=== PATIENT | female | born 1985 | race Caucasian/White ===

== ENCOUNTER → 2017-09-04 10:40 | Outpatient (CLI) | payer MEDICARE, MEDICAID, SELFPAY ==
[2017-09-05 09:02] LABS: Vitamin D,25 Hydroxy 51.8 ng/mL (19.95-100.01)
== END ==
PROVIDERS: Family Provider Family Medicine; PCP Family Medicine; Visit Provider Family Medicine
DX: E55.9 Vitamin D deficiency, unspecified (principal)
CPT/HCPCS: 36415; 82306

== ENCOUNTER → 2018-10-13 12:22 | Outpatient (CLI) | payer MEDICARE, MEDICAID, SELFPAY ==
[2018-10-13 17:14] LABS: Vitamin D,25 Hydroxy 47.1 ng/mL (29.95-100.01)
[2018-10-13 17:50] LABS: Anion Gap 6 (5-15); BUN 18 mg/dL (7-18); Calcium,Total 8.1 mg/dL (8.5-10.1); Chloride 115 mmol/L (98-107); EST Glomerular Filtration Rate 121 mL/min (>60); Est Glom Filt Rate - Afr Amer 147 mL/min (>60); Glucose 88 mg/dL (74-106); Sodium Level 144 mmol/L (136-145)
== END ==
PROVIDERS: Family Provider Family Medicine; PCP Family Medicine; Referring Provider Family Medicine; Visit Provider Family Medicine
DX: M81.0 Age-related osteoporosis without current pathological fracture (principal)
CPT/HCPCS: 36415; 80048; 82306

== ENCOUNTER → 2018-10-15 16:37 | Outpatient (CLI) | payer MEDICARE, MEDICAID, SELFPAY ==
[2018-10-15 16:39] LABS: Bacteria 0 SEEN /hpf (None Seen); Mucous, Urine 0 SEEN /hpf (<or=2+); Red Blood Cells-Urine 0 SEEN /hpf (0-5); White Blood Cells 0 SEEN /hpf (0-5)
[2018-10-15 17:56] LABS: Color, Urine Yellow (Yellow); Glucose, Dipstick Normal (Normal); Ketone-Dipstick Negative (Negative); Leukocyte Esterase-Dipstick 25 /ul (Negative); Nitrite-Dipstick Negative (Negative); Occult Blood-Urine 10 /ul (Negative); Protein-Dipstick 15 mg/dl (Negative); Specific Gravity, Urine 1.015 (1.002-1.030); Urine Bilirubin Dipstick Negative (Negative); Urine Clarity Sl. Cloudy (Clear); Urine Urobilinogen 1 mg/dl (Normal)
[2018-10-15 18:06] LABS: Squamous Epithelial Cells - UA 0-5 SEEN /hpf (5-10); Triple Phosphate Crystals Ur 3+ /hpf (<or=1+)
== END ==
PROVIDERS: Family Provider Family Medicine; PCP Family Medicine; Referring Provider Family Medicine; Visit Provider Family Medicine
DX: R35.0 Frequency of micturition (principal)
CPT/HCPCS: 36415; 81001; 82330; 87086; 87088; 87186

== ENCOUNTER → 2019-06-23 16:24 | Outpatient (CLI) | payer MEDICARE, MEDICAID, SELFPAY ==
[2019-06-23 17:39] LABS: Absolute Lymphocyte Count 4.74 X10^3/uL (0.83-4.51); Absolute Neutrophil Count 2.3 X10^3/uL (2.0-7.7); Basophil# 0.04 X10^3/uL; Basophil% 0.5 % (0-1); Eosinophil# 0.19 X10^3/uL; Eosinophils% 2.3 % (0-5); Hematocrit 43.9 % (37-47); Hemoglobin 13.7 g/dL (12.0-15.0); Lymphocyte # 4.74 X10^3/ul (4.0); Lymphocyte % 57.5 % (19-41); Mean Corp Hgb Conc 31.2 g/dL (32-36); Mean Corpuscular Hgb 34.3 pg (27.0-32.0); Mean Platelet Vol. 11.6 fl (6.2-12.0); Monocyte# 0.94 X10^3/uL; Monocyte% 11.4 % (0-10); NRBC Flagged by Analyzer 0 % (0-5); Neutrophil % 27.8 % (47-70); Platelet Count 237 K/mm3 (150-450); RBC Distribution Width CV 13.9 % (11.6-14.6); RBC Distribution Width SD 57.2 fl (35.1-43.9); Red Blood Count 3.99 M/mm3 (4.2-5.4); White Blood Count 8.3 K/mm3 (4.4-11.0)
[2019-06-23 18:12] LABS: Carbamazepine (Tegretol) 6.5 ug/mL (4.0-12.0); Valproic Acid (Depakene) Level 131 ug/mL (50-100)
[2019-06-23 18:35] LABS: ALB/GLOB Ratio 0.8 RATIO (0.9-2.4); AST(SGOT) 23 U/L (15-37); Alanine Aminotransfer ALT/SGPT 15 U/L (13-56); Albumin, Serum 3.2 g/dL (3.2-5.0); Alkaline Phosphatase 74 U/L (45-117); Anion Gap 9 (5-15); BUN 18 mg/dL (7-18); BUN/Creat Ratio 32.3 RATIO (10-20); Calcium,Total 8.8 mg/dL (8.5-10.1); Chloride 113 mmol/L (98-107); Creatinine, Serum 0.56 mg/dL (0.55-1.02); EST Glomerular Filtration Rate 132 mL/min (>60); Est Glom Filt Rate - Afr Amer 159 mL/min (>60); Globulin 3.8 g/dL (2.2-4.2); Glucose 74 mg/dL (74-106); Iron 121 ug/dL (50-170); Potassium 4.4 mmol/L (3.5-5.1); Sodium Level 143 mmol/L (136-145); Thyroid Stim Hormone (TSH) 1.76 uIU/mL (0.358-3.74)
== END ==
PROVIDERS: Family Provider Family Medicine; PCP Family Medicine; Referring Provider Family Medicine; Visit Provider Family Medicine
DX: R53.83 Other fatigue (principal); G40.909 Epilepsy, unspecified, not intractable, without status epilepticus
CPT/HCPCS: 36415; 80053; 80156; 80164; 83540; 84443; 85025

== ENCOUNTER → 2019-07-07 08:28 | Outpatient (CLI) | payer MEDICARE, MEDICAID, SELFPAY ==
--- NOTE | 2019-07-07 08:35 | BD_ITS ---
STUDY: DUAL ENERGY X-RAY ABSORPTIOMETRY / DXA REASON FOR EXAM: Female, 34 years old. Family history of osteoporosis. TECHNIQUE: Bone Mineral Density (BMD) measurements of both forearms were obtained. COMPARISON: Comparison is made with prior study dated January 02, 2017. FINDINGS: Right Forearm: g/cm2 (0.566) / T-score (-3.6) / Z-score (-3.6) Left Forearm: g/cm2 (0.643) / T-score (-2.8) / Z-score (-2.8) BD/Dexa Bone Density/Append Skel IMPRESSION: The patient is considered osteoporotic as outlined below according to World Dl Organization (WHO) criteria with a high fracture risk. There has been worsening of bone density since the previous examination. Reference Information: The T-score is the number of standard deviations above or below the standard which is normal for young adults at their peak bone mineral density. The World Health Organization (WHO) interprets the T-scores as follows: Above -1 Normal bone density Between -1 and -2.5 Osteopenia Equal to / or below -2.5 Osteoporosis As a practical clinical guideline, osteopenia may be graded as follows: Mild -1 through -1.5 Moderate -1.6 through -2.0 Severe -2.1 through -2.4 The Z-score is the number of standard deviations above or below age-matched controls. A Z-score of less than -1.5 would be considered abnormal. References: 1. NIH Osteoporosis and Related Bone Diseases http://www.osteo.org 2. International Society for Clinical Densitometry http://www.iscd.org 3. National Osteoporosis Foundation http://www.nof.org Electronically Signed: Kaz Zeng, at 15:31 EST , Service support ,
== END ==
PROVIDERS: Family Provider Family Medicine; PCP Family Medicine; Referring Provider Family Medicine; Visit Provider Family Medicine
DX: M81.0 Age-related osteoporosis without current pathological fracture (principal)
CPT/HCPCS: 77080; 77081

== ENCOUNTER → 2019-07-16 11:06 | Outpatient (CLI) | payer MEDICARE, MEDICAID, SELFPAY ==
[2019-07-16 18:05] LABS: Valproic Acid (Depakene) Level 62 ug/mL (50-100)
== END ==
PROVIDERS: Family Provider Family Medicine; PCP Family Medicine; Visit Provider Family Medicine
DX: R53.83 Other fatigue (principal)
CPT/HCPCS: 36415; 80164

== ENCOUNTER → 2020-02-15 09:31 | Outpatient (CLI) | payer MEDICARE, MEDICAID, SELFPAY ==
[2020-02-15 12:34] LABS: ALB/GLOB Ratio 0.9 RATIO (0.9-2.4); AST(SGOT) 27 U/L (15-37); Alanine Aminotransfer ALT/SGPT 15 U/L (13-56); Albumin, Serum 3.1 g/dL (3.2-5.0); Alkaline Phosphatase 67 U/L (45-117); Anion Gap 6 (5-15); BUN 20 mg/dL (7-18); Calcium,Total 8.3 mg/dL (8.5-10.1); Chloride 114 mmol/L (98-107); Creatinine, Serum 0.56 mg/dL (0.55-1.02); EST Glomerular Filtration Rate 132 mL/min (>60); Est Glom Filt Rate - Afr Amer 159 mL/min (>60); Globulin 3.4 g/dL (2.2-4.2); Glucose 87 mg/dL (74-106); Potassium 4.5 mmol/L (3.5-5.1); Protein, Total 6.5 g/dL (6.4-8.2); Sodium Level 144 mmol/L (136-145)
[2020-02-15 12:43] LABS: Absolute Lymphocyte Count 2.81 X10^3/uL (0.83-4.51); Absolute Neutrophil Count 2.4 X10^3/uL (2.0-7.7); Basophil# 0.04 X10^3/uL; Basophil% 0.6 % (0-1); Eosinophil# 0.15 X10^3/uL; Eosinophils% 2.4 % (0-5); Hematocrit 42.3 % (37-47); Lymphocyte # 2.81 X10^3/ul (4.0); Lymphocyte % 45.3 % (19-41); Mean Corp Hgb Conc 30.7 g/dL (32-36); Mean Corpuscular Hgb 35.1 pg (27.0-32.0); Mean Corpuscular Volume 114.3 fL (81-99); Monocyte# 0.76 X10^3/uL; Monocyte% 12.3 % (0-10); Neutrophil # 2.38 X10^3/uL (2.7-7.7); Neutrophil % 38.4 % (47-70); POSITIVE COUNT YES; Platelet Count 139 K/mm3 (150-450); RBC Distribution Width CV 14.6 % (11.6-14.6); RBC Distribution Width SD 61.5 fl (35.1-43.9); White Blood Count 6.2 K/mm3 (4.4-11.0)
[2020-02-15 13:18] LABS: Differential Indicated SCAN CRITERIA MET
[2020-02-15 13:20] LABS: Platelet Morphology LARGE
== END ==
PROVIDERS: PCP Family Medicine; Referring Provider Family Medicine
DX: F84.2 Rett's syndrome (principal); R56.9 Unspecified convulsions
CPT/HCPCS: 36415; 80053; 85025

== ENCOUNTER → 2020-03-07 11:09 | Outpatient (CLI) | payer MEDICARE, MEDICAID, SELFPAY ==
[2020-03-07 15:38] LABS: Carbamazepine (Tegretol) 5.8 ug/mL (4.0-12.0); Valproic Acid (Depakene) Level 108 ug/mL (50-100)
[2020-03-13 21:28] LABS: Topiramate 9.9 ug/mL (2.0-25.0)
== END ==
PROVIDERS: PCP Family Medicine; Referring Provider Family Medicine; Visit Provider Family Medicine
DX: R56.9 Unspecified convulsions (principal)
CPT/HCPCS: 36415; 80156; 80164; 80201

== ENCOUNTER → 2020-08-01 09:53 | Outpatient (CLI) | payer MEDICARE, MEDICAID, SELFPAY ==
[2020-08-01 12:19] LABS: Hematocrit 39.8 % (37-47); Hemoglobin 12.6 g/dL (12.0-15.0); Mean Corp Hgb Conc 31.7 g/dL (32-36); Mean Corpuscular Hgb 34.9 pg (27.0-32.0); Mean Corpuscular Volume 110.2 fL (81-99); Mean Platelet Vol. 12.1 fl (6.2-12.0); Platelet Count 221 K/mm3 (150-450); RBC Distribution Width CV 14.3 % (11.6-14.6); RBC Distribution Width SD 58.4 fl (35.1-43.9); Red Blood Count 3.61 M/mm3 (4.2-5.4); White Blood Count 6.6 K/mm3 (4.4-11.0)
[2020-08-01 12:53] LABS: Follicle Stimulating Hormone 5.1 mIU/mL; Luteinizing Hormone 7.9 mIU/mL; Thyroid Stim Hormone (TSH) 1.76 uIU/mL (0.358-3.74)
== END ==
PROVIDERS: PCP Family Medicine; Referring Provider Family Medicine; Visit Provider Family Medicine
DX: N93.8 Other specified abnormal uterine and vaginal bleeding (principal); R53.83 Other fatigue
CPT/HCPCS: 36415; 82670; 83001; 83002; 84443; 85027

== ENCOUNTER → 2021-02-12 15:55 | Outpatient (CLI) | payer MEDICARE, MEDICAID, SELFPAY ==
[2021-02-12 18:04] LABS: Vitamin D,25 Hydroxy 37.1 ng/mL
[2021-02-12 18:19] LABS: Anion Gap 6 (5-15); BUN 20 mg/dL (7-18); BUN/Creat Ratio 32.1 RATIO (10-20); Calcium,Total 8.4 mg/dL (8.5-10.1); Chloride 114 mmol/L (98-107); Cholesterol 227 mg/dL (200); Creatinine, Serum 0.62 mg/dL (0.55-1.02); EST Glomerular Filtration Rate 115 mL/min (>60); Est Glom Filt Rate - Afr Amer 139 mL/min (>60); Glucose 103 mg/dL (74-106); High Density Lipoprotein 93 mg/dL; Magnesium 3.1 mg/dL (1.6-2.6); Potassium 4.2 mmol/L (3.5-5.1); Sodium Level 143 mmol/L (136-145); Triglycerides 134 mg/dL; Very Low Density Lipoprotein 27 mg/dL (5-40)
[2021-02-12 18:59] LABS: PTHIN 95.7 pg/mL (18.4-80.1)
[2021-02-12 19:11] LABS: Carbamazepine (Tegretol) 6.4 ug/mL (4.0-12.0); Valproic Acid (Depakene) Level 122 ug/mL (50-100)
[2021-02-15 16:44] LABS: Topiramate 8.4 ug/mL (2.0-25.0)
== END ==
PROVIDERS: PCP Family Medicine
DX: Z13.220 Encounter for screening for lipoid disorders (principal); M81.0 Age-related osteoporosis without current pathological fracture; R56.9 Unspecified convulsions
CPT/HCPCS: 80048; 80061; 80156; 80164; 80201; 82306; 82330; 83735; 83970

== ENCOUNTER → 2021-06-21 10:00 | Outpatient (CLI) | payer MEDICARE, MEDICAID, SELFPAY ==
[2021-06-21 13:05] LABS: Carbamazepine (Tegretol) 7.1 ug/mL (4.0-12.0); Valproic Acid (Depakene) Level 93 ug/mL (50-100)
[2021-06-21 13:12] LABS: Vitamin D,25 Hydroxy 35.4 ng/mL
[2021-06-21 13:13] LABS: PTHIN 69.3 pg/mL (18.4-80.1)
[2021-06-21 13:44] LABS: Anion Gap 9 (5-15); BUN 22 mg/dL (7-18); BUN/Creat Ratio 34.2 RATIO (10-20); Calcium,Total 9.1 mg/dL (8.5-10.1); Chloride 110 mmol/L (98-107); Creatinine, Serum 0.64 mg/dL (0.55-1.02); EST Glomerular Filtration Rate 110 mL/min (>60); Est Glom Filt Rate - Afr Amer 134 mL/min (>60); Follicle Stimulating Hormone 6.4 mIU/mL; Glucose 91 mg/dL (74-106); Luteinizing Hormone 7.3 mIU/mL; Potassium 3.8 mmol/L (3.5-5.1); Sodium Level 143 mmol/L (136-145)
== END ==
PROVIDERS: PCP Family Medicine; Referring Provider Family Medicine; Visit Provider Family Medicine
DX: M81.0 Age-related osteoporosis without current pathological fracture (principal); N91.2 Amenorrhea, unspecified; G40.909 Epilepsy, unspecified, not intractable, without status epilepticus
CPT/HCPCS: 36415; 80048; 80156; 80164; 82306; 82330; 83001; 83002; 83735; 83970

== ENCOUNTER 2021-11-01 09:23 | Outpatient (CLI) | payer MEDICARE, MEDICAID, SELFPAY ==
[2021-11-01 10:01] LABS: Absolute Lymphocyte Count 3.05 X10^3/uL (0.83-4.51); Absolute Neutrophil Count 1.9 X10^3/uL (2.0-7.7); Basophil# 0.02 X10^3/uL; Basophil% 0.3 % (0-1); Eosinophil# 0.26 X10^3/uL; Eosinophils% 4.2 % (0-5); Hematocrit 39.3 % (37-47); Hemoglobin 12.5 g/dL (12.0-15.0); Lymphocyte # 3.05 X10^3/ul (0.83-4.51); Lymphocyte % 49.1 % (19-41); Mean Corp Hgb Conc 31.8 g/dL (32-36); Mean Corpuscular Hgb 34.2 pg (27.0-32.0); Mean Corpuscular Volume 107.4 fL (81-99); Mean Platelet Vol. 10.8 fl (6.2-12.0); Monocyte# 0.92 X10^3/uL; Monocyte% 14.8 % (0-10); NRBC Flagged by Analyzer 0.8 % (0-5); Neutrophil # 1.93 X10^3/uL (2.7-7.7); Neutrophil % 31.1 % (47-70); Platelet Count 302 K/mm3 (150-450); RBC Distribution Width CV 15.6 % (11.6-14.6); RBC Distribution Width SD 62.4 fl (35.1-43.9); Red Blood Count 3.66 M/mm3 (4.2-5.4); White Blood Count 6.2 K/mm3 (4.4-11.0)
[2021-11-01 10:32] LABS: Carbamazepine (Tegretol) 6.7 ug/mL (4.0-12.0); Valproic Acid (Depakene) Level 69 ug/mL (50-100)
[2021-11-01 10:33] LABS: ALB/GLOB Ratio 0.9 RATIO (0.9-2.4); AST(SGOT) 17 U/L (15-37); Alanine Aminotransfer ALT/SGPT 16 U/L (13-56); Albumin, Serum 3.1 g/dL (3.2-5.0); Alkaline Phosphatase 63 U/L (45-117); Anion Gap 2 (5-15); BUN 25 mg/dL (7-18); BUN/Creat Ratio 42.8 RATIO (10-20); Calcium,Total 8.8 mg/dL (8.5-10.1); Chloride 111 mmol/L (98-107); Creatinine, Serum 0.58 mg/dL (0.55-1.02); EST Glomerular Filtration Rate 123 mL/min (>60); Est Glom Filt Rate - Afr Amer 149 mL/min (>60); Globulin 3.5 g/dL (2.2-4.2); Glucose 83 mg/dL (74-106); Potassium 4.2 mmol/L (3.5-5.1); Protein, Total 6.6 g/dL (6.4-8.2); Sodium Level 142 mmol/L (136-145)
== END 2021-11-01 23:59 | disposition home or self-care (01) ==
PROVIDERS: PCP Family Medicine; Referring Provider Family Medicine; Visit Provider Nurse Practitioner Family
DX: R63.0 Anorexia (principal); G40.909 Epilepsy, unspecified, not intractable, without status epilepticus
CPT/HCPCS: 36415; 80053; 80156; 80164; 85025

== ENCOUNTER → 2022-08-19 | Outpatient (CLI) | payer MEDICARE, MEDICAID, SELFPAY ==
[2022-08-19 10:18] LABS: Hematocrit 37.6 % (37-47); Hemoglobin 11.9 g/dL (12.0-15.0); Mean Corp Hgb Conc 31.6 g/dL (32-36); Mean Corpuscular Hgb 33.8 pg (27.0-32.0); Mean Corpuscular Volume 106.8 fL (81-99); Mean Platelet Vol. 11.3 fl (6.2-12.0); Platelet Count 204 K/mm3 (150-450); RBC Distribution Width CV 16.4 % (11.6-14.6); Red Blood Count 3.52 M/mm3 (4.2-5.4); White Blood Count 5.5 K/mm3 (4.4-11.0)
[2022-08-19 11:04] LABS: PTHIN 98.9 pg/mL (18.4-80.1)
[2022-08-19 11:06] LABS: Vitamin B12 638 pg/mL (211-911)
[2022-08-19 11:15] LABS: Valproic Acid (Depakene) Level 73 ug/mL (50-100)
[2022-08-19 11:27] LABS: ALB/GLOB Ratio 0.9 RATIO (0.9-2.4); AST(SGOT) 20 U/L (15-37); Alanine Aminotransfer ALT/SGPT 12 U/L (13-56); Alkaline Phosphatase 77 U/L (45-117); Anion Gap 7 (5-15); BUN 20 mg/dL (7-18); BUN/Creat Ratio 38.4 RATIO (10-20); Calcium,Total 8.3 mg/dL (8.5-10.1); Chloride 112 mmol/L (98-107); Cholesterol 268 mg/dL (200); Creatinine, Serum 0.52 mg/dL (0.55-1.02); EST Glomerular Filtration Rate 140 mL/min (>60); Est Glom Filt Rate - Afr Amer 169 mL/min (>60); Globulin 3.5 g/dL (2.2-4.2); Glucose 96 mg/dL (74-106); High Density Lipoprotein 111 mg/dL; Magnesium 2.7 mg/dL (1.6-2.6); Potassium 4.3 mmol/L (3.5-5.1); Protein, Total 6.5 g/dL (6.4-8.2); Sodium Level 144 mmol/L (136-145); Thyroid Stim Hormone (TSH) 1.63 uIU/mL (0.358-3.74); Triglycerides 104 mg/dL; Very Low Density Lipoprotein 21 mg/dL (5-40)
== END | disposition home or self-care (01) ==
PROVIDERS: PCP Family Medicine; Visit Provider Family Medicine
DX: Z13.220 Encounter for screening for lipoid disorders (principal); G40.909 Epilepsy, unspecified, not intractable, without status epilepticus; R71.8 Other abnormality of red blood cells; M81.0 Age-related osteoporosis without current pathological fracture; N92.6 Irregular menstruation, unspecified; E78.00 Pure hypercholesterolemia, unspecified
CPT/HCPCS: 36415; 80053; 80061; 80164; 82306; 82330; 82607; 83735; 83970; 84443; 85027

== ENCOUNTER → 2022-09-04 | Outpatient (CLI) | payer MEDICARE, MEDICAID, SELFPAY ==
--- NOTE | 2022-09-04 15:30 | RAD_ITS ---
INDICATION: swallowed tooth during removal with dentist EXAMINATION/TECHNIQUE: X-RAY - XR Chest 2 Views COMPARISON: None. FINDINGS: LINES/DEVICES: None. LUNGS: No consolidation, edema or effusion. No pneumothorax. MEDIASTINUM AND CARDIOVASCULAR STRUCTURES: Cardiac silhouette not enlarged. Central airways and mediastinal contour are unremarkable. BONES AND SOFT TISSUES: Mild vertebral scoliosis. RAD/Chest PA and Lateral IMPRESSION: No radiographic evidence of acute cardiopulmonary disease. Electronically Signed: Obi Mcintosh DO at 16:59 EST Reading Location ID and State: [facility] / [place] Tel [phone], Service support ,
== END | disposition home or self-care (01) ==
LOC: MTRAD 15:29
PROVIDERS: PCP Family Medicine; Visit Provider Family Medicine
DX: T18.9XXA Foreign body of alimentary tract, part unspecified, initial encounter (principal)
CPT/HCPCS: 71046

== ENCOUNTER → 2023-01-01 | Outpatient (CLI) | payer MEDICARE, MEDICAID, SELFPAY ==
[2023-01-01 10:36] LABS: Absolute Lymphocyte Count 3.12 X10^3/uL (0.83-4.51); Absolute Neutrophil Count 2.1 X10^3/uL (2.0-7.7); Basophil# 0.02 X10^3/uL; Basophil% 0.3 % (0-1); Eosinophil# 0.18 X10^3/uL; Eosinophils% 2.8 % (0-5); Hematocrit 38.9 % (37-47); Hemoglobin 11.9 g/dL (12.0-15.0); Lymphocyte # 3.12 X10^3/ul (0.83-4.51); Lymphocyte % 49.1 % (19-41); Mean Corp Hgb Conc 30.6 g/dL (32-36); Mean Corpuscular Hgb 32.9 pg (27.0-32.0); Mean Corpuscular Volume 107.5 fL (81-99); Mean Platelet Vol. 11.1 fl (6.2-12.0); Monocyte# 0.92 X10^3/uL; Monocyte% 14.5 % (0-10); NRBC Flagged by Analyzer 1.3 % (0-5); Neutrophil # 2.08 X10^3/uL (2.7-7.7); Neutrophil % 32.7 % (47-70); POSITIVE MORPHOLOGY YES; Platelet Count 266 K/mm3 (150-450); RBC Distribution Width CV 17.2 % (11.6-14.6); RBC Distribution Width SD 67.5 fl (35.1-43.9); Red Blood Count 3.62 M/mm3 (4.2-5.4); White Blood Count 6.4 K/mm3 (4.4-11.0)
[2023-01-01 10:41] LABS: Differential Indicated SCAN CRITERIA MET
[2023-01-01 11:01] LABS: Anisocytosis 2+; Differential Comment SCANNED; Polychromasia RARE
[2023-01-01 11:02] LABS: Macrocytosis 1+
[2023-01-01 11:03] LABS: PTHIN 42.2 pg/mL (18.4-80.1); Vitamin D,25 Hydroxy 56.5 ng/mL
[2023-01-01 11:09] LABS: Anion Gap 4 (5-15); BUN 21 mg/dL (7-18); BUN/Creat Ratio 33.7 RATIO (10-20); Calcium,Total 9.2 mg/dL (8.5-10.1); Chloride 115 mmol/L (98-107); Creatinine, Serum 0.62 mg/dL (0.55-1.02); EST Glomerular Filtration Rate 113 mL/min (>60); Est Glom Filt Rate - Afr Amer 137 mL/min (>60); Glucose 99 mg/dL (74-106); Magnesium 2.8 mg/dL (1.6-2.6); Potassium 4.6 mmol/L (3.5-5.1); Prealbumin 28.7 mg/dL (20.0-40.0); Sodium Level 146 mmol/L (136-145)
== END | disposition home or self-care (01) ==
LOC: MFPLAB 09:29
PROVIDERS: PCP Family Medicine; Visit Provider Family Medicine
DX: M81.0 Age-related osteoporosis without current pathological fracture (principal); M79.89 Other specified soft tissue disorders
CPT/HCPCS: 36415; 80048; 82306; 83735; 83970; 84134; 85025

== ENCOUNTER 2023-03-15 06:38 | Emergency (ER) | payer MEDICARE, MEDICAID, SELFPAY ==
[2023-03-15 06:42] VITALS: BP 136/101; PULSE 90; RESP 16; TEMP 36.1; O2SAT 95; BMI 19.7
[2023-03-15 06:46] VITALS: BP 125/107; PULSE 90; RESP 16; TEMP 36.1; O2SAT 97
--- NOTE | 2023-03-15 07:36 | EX.ED.DYSGE1 ---
HPI History of Present Illness Chief Complaint: General Illness Detail of Chief Complaint: Diarrhea Onset/Context/Timing Onset: Days (6) Context: Gradual Onset Timing: Continuous Quality: Watery Location: Stools Worsened by: Nothing Relieved by: Nothing Narrative Narrative: Patient presents with diarrhea and decreased appetite that has been getting worse over the past 6 days. 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 Parents state that the patient has had decreased appetite over the past week. Parents state that the patient was recently on steroids for COVID-19. Family states that patient had a telehealth visit with Dr. Sauceda this week and was diagnosed with oral thrush. Patient was started on nystatin at that time. Family states that the patient has been having intermittent fevers and was started on Zithromax for possible pharyngitis. Family states that the diarrhea has been loose and watery. Family denies any melena or hematochezia. Family is concerned that the patient's mental status has gone down over the past 6 days. [facility] Medical History (Updated 03/15/23 @ 10:[address] Mio Martinez, DO) GERD (gastroesophageal reflux disease) History of osteoporosis Rett syndrome Scoliosis Seizure disorder Home Medications baclofen 10 mg tablet 7.5 mg PO DAILY 03/15/23 [History Last Taken Unknown] carbamazepine 100 mg chewable tablet 200 mg PO Q12H 03/15/23 [History Last Taken Unknown] cholecalciferol (vitamin D3) 10 mcg (400 unit) capsule (Vitamin D3) 10 mcg PO DAILY 03/15/23 [History Last Taken Unknown] clonazepam 0.5 mg disintegrating tablet 0.5 mg translingual PRN SEIZURE 03/15/23 [History Last Taken Unknown] dexlansoprazole 30 mg capsule,biphase delayed release 30 mg PO DAILY 03/15/23 [History Last Taken Unknown] divalproex 250 mg tablet,delayed release 1,000 mg PO Q12H 03/15/23 [History Last Taken Unknown] docusate sodium 100 mg capsule (Col-Rite) 200 mg PO BID 03/15/23 [History Last Taken Unknown] glycerin (laxative) 2.8 gram/2.7 mL rectal solution (Pedia-Lax) 2.8 g IA QODAY 03/15/23 [History Last Taken Unknown] polyethylene glycol 3350 17 gram/dose oral powder (ClearLax) 8.5 g PO DAILY 03/15/23 [History Last Taken Unknown] topiramate 100 mg tablet 150 mg PO Q12H 03/15/23 [History Last Taken Unknown] Allergy/AdvReac Type Severity Reaction Status Date / Time diazepam [From Valium] Allergy Other Verified 03/15/23 06:41 morphine Allergy Other Verified 03/15/23 06:41 Penicillins Allergy Rash Verified 03/15/23 06:41 Surgical History (Updated 03/15/23 @ 07:[address] Mio Martinez DO) History of ankle surgery Social History Smoking Status: Never smoker ROS ROS ED Review of Systems ROS Unobtainable: due to mental condition Constitutional Constitutional ED: Reports fever(s); Denies chills ENT ENT ED: Reports sore throat; Denies rhinorrhea Respiratory/Chest Respiratory/Chest: Denies cough or dyspnea Gastrointestinal Gastrointestinal: Reports diarrhea; Denies nausea or vomiting Integumentary Denies abscess or rash Neurologic Neurologic: Reports weakness Allergic/Immunologic Allergic/Immunologic ED: Denies mouth swelling EXAM Physical Exam Const Vital Signs: 03/15/23 06:42 03/15/23 06:46 03/15/23 06:49 Temperature 96.9 F L 96.9 F L Temperature Source Temporal Temporal Pulse Rate 90 90 Respiratory Rate 16 16 Respiratory Effort Normal Blood Pressure 136/101 H 125/107 H Blood Pressure Mean 112 113 Pulse Ox 95 97 Oxygen Delivery Method 03/15/23 09:50 Temperature Temperature Source Pulse Rate 78 Respiratory Rate 17 Respiratory Effort Blood Pressure Blood Pressure Mean Pulse Ox Oxygen Delivery Method Room Air Positive well nourished and well developed General Appearance ED: well developed and NAD HEENT Reports moist mucous membranes HEENT Narrative: There is a mild white exudate on the tongue. Negative for trauma Neck supple and no JVD Resp normal respiratory effort and clear to auscultation bilaterally Cardio regular rate and regular rhythm GI non-tender and non-distended Palpation: soft Neuro Sensorium / Orientation: alert Motor Exam: general weakness MDM MDM MDM Narrative Medical decision making narrative: Differential diagnosis includes dehydration, electrolyte abnormality, acute kidney injury, colitis, and gastroenteritis. CBC will be obtained to assess for leukocytosis and anemia. Basic metabolic profile will be obtained to assess for electrolyte abnormality and renal function. Urinalysis will be obtained to assess for urinary tract infection. Valproic acid level will be obtained to assess for subtherapeutic level. Tegretol level will be obtained to assess for subtherapeutic level. CT scan of the abdomen pelvis will be obtained to assess for colitis. Lab Data Attestation: I reviewed the patient's lab results. Lab results narrative: CBC shows a slight leukocytosis of 11.7. There are 3.7% immature granulocytes. There are 17.2% monocytes. The remaining differential is within normal limits. Basic metabolic profile was reviewed. Sodium slightly low at 130 and chloride was slightly low at 97. Potassium was low at 2.5. BUN was 22 and creatinine was 0.42. Urinalysis was reviewed. There is no evidence of urinary tract infection or hematuria. Patient's valproic acid level was reviewed and was therapeutic at 86. Carbamazepine level was reviewed and was slightly supratherapeutic at 15.1. Labs: Laboratory Results - last 24 hr 03/15/23 03/15/23 08:15 08:50 WBC 11.7 H RBC 3.78 L Hgb 12.2 Hct 38.7 MCV 102.4 H MCH 32.3 H MCHC 31.5 L RDW Std Deviation 64.5 H RDW Coeff of [place] 17.3 H Plt Count 233 MPV 10.5 Immature Gran % (Auto) 3.700 H Neut % (Auto) 52.4 Lymph % (Auto) 25.9 [place] % (Auto) 17.6 H Eos % (Auto) 0.2 Baso % (Auto) 0.2 Absolute Neuts (auto) 6.1 Absolute Lymphs (auto) 3.03 Nucleated RBC % 8.5 H Differential Comment SCANNED Diff Path Review May foll Sodium 130 L Potassium 2.5 L* Chloride 97 L Carbon Dioxide 24.0 Anion Gap 9 BUN 22 H Creatinine 0.42 L Estim Creat Clear Calc 98.71 Est GFR (MDRD) Af Amer 214 Est GFR (MDRD) Non-Af 177 BUN/Creatinine Ratio 51.9 H Glucose 108 H Calcium 6.8 L Total Bilirubin 0.20 Direct Bilirubin 0.07 AST 26 ALT 12 L Alkaline Phosphatase 116 Total Protein 5.8 L Albumin 1.6 L Globulin 4.2 Urine Color Marilynn Urine Clarity Sl. Cloudy Urine pH 6.0 Ur Specific [place] 1.020 Urine Protein 30 H Urine Glucose (UA) Normal Urine Ketones 50 H Urine Occult Blood 25 H Urine Nitrite Negative Urine Bilirubin 1 H Urine Urobilinogen 4 H Ur Leukocyte Esterase 25 H Urine RBC 0-5 SEEN Urine WBC 0-5 SEEN Ur Squamous Epith Cells 10-25 SEEN Other Crystals Urine Bacteria 0 SEEN Urine Mucus 0 SEEN Valproic Acid 86 Carbamazepine 15.1 H* Radiography Diagnostic Testing: Clinical Impression(s) from Imaging Studies Abdomen/Pelvis CT 03/15/23 07:48 IMPRESSION: Proctocolitis. Ascites. Electronically Signed: Susie Cummins MD at 9:28 EDT , CT scan of the abdomen pelvis was obtained. There is some ascites noted. There is also poctocolitis noted. There is no evidence of obstruction. There is no free air noted. This was interpreted by the radiologist and was also independently reviewed by myself. Additional Tests and Interventions Additional Tests or Interventions: Because of the ascites on the CT scan, hepatic profile was obtained to assess for hepatic function. This was within normal limits. Treatment and Re-Evaluation :: Patient was given IV fluids. Because of the hypokalemia, patient was given oral and IV potassium. Patient was given her normal dose of. Depakote. Patient's Tegretol level was slightly elevated so of the patient's Tegretol was held this morning. Patient is more alert on reevaluation. Parents state that the patient seems to be acting more like her normal self. Parents were advised of the findings. Parents were instructed to administer small amounts of fluids more frequently. Parents were also instructed to use PediaSure as needed. Parents were instructed to continue the Zithromax as previously prescribed. Parents were also instructed to continue the nystatin as prescribed. Parents were instructed to follow-up with the patient's primary care physician in 3 to 5 days. Parents were instructed return if worse in any way. Parents understood and were agreeable with the plan. All questions were answered. Discharge Plan Triage Chief Complaint: General Illness ED Provider: Mio Martinez Dx/Rx/DC Orders Clinical Impression: Dehydration, Hypokalemia, Proctocolitis Instructions: ED Dehydration (Adult), ED Hypokalemia Prescriptions: No Action divalproex 250 mg tablet,delayed release (DR/EC) 1,000 mg PO Q12H Patient Comments: take 4 tablets by mouth twice a day carbamazepine 100 mg tablet,chewable 200 mg PO Q12H Patient Comments: chew and swallow 2 tablets by mouth twice a day topiramate 100 mg tablet 150 mg PO Q12H Patient Comments: take 1 tablet by mouth twice a day dexlansoprazole 30 mg capsule,biphase delayed releas 30 mg PO DAILY Patient Comments: take 1 capsule by mouth once daily baclofen 10 mg tablet 7.5 mg PO DAILY clonazepam 0.5 mg tablet,disintegrating 0.5 mg translingual PRN docusate sodium [Col-Rite] 100 mg capsule 200 mg PO BID cholecalciferol (vitamin D3) [Vitamin D3] 10 mcg (400 unit) capsule 10 mcg PO DAILY polyethylene glycol 3350 [ClearLax] 17 gram/dose powder 8.5 g PO DAILY Pedia-Lax 2.8 gram/2.7 mL solution 2.8 g IA QODAY Primary Care Provider: Curly Sauceda Referrals: Curly Sauceda MD [Primary Care Provider] - 3-5 Days Disposition Disposition: Home, Self Care
--- NOTE | 2023-03-15 07:48 | CT_ITS ---
INDICATION: Abdominal pain EXAMINATION: CT ABDOMEN AND PELVIS WITHOUT CONTRAST - CT Abdomen And Pelvis W/O Contrast Injection TECHNIQUE: Helically acquired images were obtained of the abdomen and pelvis without oral or IV contrast. A radiation dose optimization technique was used for this scan. IV Contrast dosage and agent: None. Oral contrast: None. RADIATION DOSAGE (If Supplied By Facility): CTDIvol = ( 6.04 ) mGy, DLP = ( 283.89 ) mGycm COMPARISON: No relevant prior comparison study available FINDINGS: Motion artifact degrades anatomic detail. LOWER CHEST: There are small bilateral pleural effusions, right greater than left. No cardiomegaly or pericardial effusion. The lack of intravenous contrast limits evaluation of solid visceral organs. LIVER: Homogeneous. No focal mass. GALLBLADDER AND BILIARY TREE: No calcified gallstones. No gallbladder distension or wall edema. No intra- or extrahepatic biliary ductal dilation. PANCREAS: No focal cystic or solid mass. SPLEEN: Normal size without focal cystic or solid mass. ADRENAL GLANDS: No nodules. KIDNEYS AND URETERS: Normal renal size and position. No hydronephrosis. PERITONEUM: There is free fluid within the right upper quadrant and pelvis. BOWEL: The stomach is within normal limits. There is circumferential wall thickening of the colon and rectum. There is nonvisualization of the appendix. LYMPH NODES: No enlarged mesenteric or retroperitoneal lymph nodes. VESSELS: Aorta is non-dilated. URINARY BLADDER: Unremarkable. REPRODUCTIVE ORGANS: No pelvic masses. ABDOMINAL WALL: No discrete abdominal or pelvic wall hernia. BONES: There is a dextroscoliosis of the thoracolumbar spine. CT/Abdomen/Pelvis without Cont IMPRESSION: Proctocolitis. Ascites. Electronically Signed: Susie Cummins MD at 9:28 EDT ,
[2023-03-15] MEDS: 0.9% Normal Saline 1,000 ML 1000 ML IV (07:56)
[2023-03-15 08:26] LABS: Absolute Lymphocyte Count 3.03 X10^3/uL (0.83-4.51); Absolute Neutrophil Count 6.1 X10^3/uL (2.0-7.7); Basophil# 0.02 X10^3/uL; Basophil% 0.2 % (0-1); Eosinophil# 0.02 X10^3/uL; Eosinophils% 0.2 % (0-5); Hematocrit 38.7 % (37-47); Hemoglobin 12.2 g/dL (12.0-15.0); Lymphocyte # 3.03 X10^3/ul (0.83-4.51); Lymphocyte % 25.9 % (19-41); Mean Corp Hgb Conc 31.5 g/dL (32-36); Mean Corpuscular Hgb 32.3 pg (27.0-32.0); Mean Corpuscular Volume 102.4 fL (81-99); Mean Platelet Vol. 10.5 fl (6.2-12.0); Monocyte# 2.06 X10^3/uL; Monocyte% 17.6 % (0-10); NRBC Flagged by Analyzer 8.5 % (0-5); Neutrophil # 6.12 X10^3/uL (2.7-7.7); Neutrophil % 52.4 % (47-70); POSITIVE COUNT YES; POSITIVE DIFFERENTIAL YES; POSITIVE MORPHOLOGY YES; Platelet Count 233 K/mm3 (150-450); RBC Distribution Width CV 17.3 % (11.6-14.6); RBC Distribution Width SD 64.5 fl (35.1-43.9); Red Blood Count 3.78 M/mm3 (4.2-5.4); White Blood Count 11.7 K/mm3 (4.4-11.0)
[2023-03-15 08:38] LABS: Anion Gap 9 (5-15); BUN 22 mg/dL (7-18); BUN/Creat Ratio 51.9 RATIO (10-20); Calcium,Total 6.8 mg/dL (8.5-10.1); Chloride 97 mmol/L (98-107); Creatinine, Serum 0.42 mg/dL (0.55-1.02); EST Glomerular Filtration Rate 177 mL/min (>60); Est Glom Filt Rate - Afr Amer 214 mL/min (>60); Estimated Creatinine Clearance 98.71 ml/min; Glucose 108 mg/dL (74-106); Potassium 2.5 mmol/L (3.5-5.1); Sodium Level 130 mmol/L (136-145)
[2023-03-15 08:43] LABS: Differential Indicated SCAN CRITERIA MET
[2023-03-15 08:51] LABS: Carbamazepine (Tegretol) 15.1 ug/mL (4.0-12.0); Valproic Acid (Depakene) Level 86 ug/mL (50-100)
[2023-03-15 09:00] LABS: Bacteria 0 SEEN /hpf (None Seen); Mucous, Urine 0 SEEN /hpf (<or=2+)
[2023-03-15 09:09] LABS: Color, Urine Amber (Yellow); Glucose, Dipstick Normal (Normal); Ketone-Dipstick 50 mg/dl (Negative); Leukocyte Esterase-Dipstick 25 /ul (Negative); Nitrite-Dipstick Negative (Negative); Occult Blood-Urine 25 /ul (Negative); Protein-Dipstick 30 mg/dl (Negative); Urine Clarity Sl. Cloudy (Clear); Urine Urobilinogen 4 mg/dl (Normal)
[2023-03-15 09:12] LABS: Differential Comment SCANNED
[2023-03-15 09:16] LABS: Urine Bilirubin Dipstick 1 mg/dL (Negative)
[2023-03-15] MEDS: Potassium Chloride Oral Soln 20 MEQ/15 ML UDC 40 MEQ PO (09:20)
[2023-03-15] MEDS: Potassium Chloride 10mEq/100mL 10 MEQ/100 ML IV.SOLN. 100 MEQ IV BOLUS (09:21)
--- NOTE | 2023-03-15 09:31 | ED.RN ---
Per Dr. Martinez, pt. can have home medications except Tegretol.
[2023-03-15 09:50] VITALS: PULSE 78; RESP 17
[2023-03-15 10:03] LABS: AST(SGOT) 26 U/L (15-37); Alanine Aminotransfer ALT/SGPT 12 U/L (13-56); Albumin, Serum 1.6 g/dL (3.2-5.0); Alkaline Phosphatase 116 U/L (45-117); Bilirubin, Direct 0.07 mg/dL (0.00-0.30); Globulin 4.2 g/dL (2.2-4.2); Protein, Total 5.8 g/dL (6.4-8.2)
[2023-03-15 10:29] LABS: Red Blood Cells-Urine 0-5 SEEN /hpf (0-5); Squamous Epithelial Cells - UA 10-25 SEEN /hpf (5-10); White Blood Cells 0-5 SEEN /hpf (0-5)
[2023-03-15] MEDS: Potassium Chloride 10mEq/100mL 10 MEQ/100 ML IV.SOLN. 50 MEQ IV BOLUS (11:26)
[2023-03-15 11:53] VITALS: PULSE 80; RESP 16
[2023-03-15 13:32] VITALS: BP 125/107; PULSE 78; RESP 16; TEMP 36.8; O2SAT 99
[2023-03-18 12:30] LABS: Pathologist Review Reviewed
== END 2023-03-15 13:42 | disposition home or self-care (01) ==
PROVIDERS: Emergency Provider Emergency Medicine; PCP Family Medicine; Visit Provider Emergency Medicine
DX: E86.0 Dehydration (principal); E87.6 Hypokalemia; F84.2 Rett's syndrome; Z86.16 Personal history of COVID-19
CPT/HCPCS: 36415; 74176; 80048; 80076; 80156; 80164; 81001; 85025; 96365; 96366; 99283; J7030; J7040; P9612; A4216

== ENCOUNTER → 2023-03-17 | Outpatient (CLI) | payer MEDICARE, MEDICAID, SELFPAY ==
[2023-03-17 13:04] LABS: Erythrocyte Sedimentation Rate 38 mm/hr (0-30)
[2023-03-17 13:06] LABS: Hematocrit 34.7 % (37-47); Hemoglobin 11.3 g/dL (12.0-15.0); Mean Corp Hgb Conc 32.6 g/dL (32-36); Mean Corpuscular Hgb 32.3 pg (27.0-32.0); Mean Corpuscular Volume 99.1 fL (81-99); Mean Platelet Vol. 11.1 fl (6.2-12.0); POSITIVE COUNT YES; POSITIVE MORPHOLOGY YES; Platelet Count 221 K/mm3 (150-450); RBC Distribution Width CV 18.4 % (11.6-14.6); RBC Distribution Width SD 66.3 fl (35.1-43.9)
[2023-03-17 13:08] LABS: Differential Indicated MANUAL DIFF
[2023-03-17 13:32] LABS: Valproic Acid (Depakene) Level 131 ug/mL (50-100)
[2023-03-17 13:38] LABS: Corrected WBC 11.7 K/mm3 (4.4-11.0); Eosinophil 1 % (0-5); Lymphocyte 42 % (19-41); Metamyelocyte 7 % (0-1); Monocyte 4 % (0-10); Myelocyte 2 % (0-0); Neutrophil-Band 5 % (0-5); Neutrophil-Segmented 39 % (47-70); Nucleated Red Bld Cells,Manual 25 % (0-5); Total Cells Counted 100 (MANUAL DIFF)
[2023-03-17 13:39] LABS: Anisocytosis 1+; Platelet Estimate ADEQUATE (ADEQ); Schistocytes RARE
[2023-03-17 13:40] LABS: Absolute Neutrophil Count 5.1 X10^3/uL (2.0-7.7); Neutrophil # 5.14 X10^3/uL (2.7-7.7)
[2023-03-17 13:53] LABS: ALB/GLOB Ratio 0.4 RATIO (0.9-2.4); AST(SGOT) 39 U/L (15-37); Alanine Aminotransfer ALT/SGPT 20 U/L (13-56); Albumin, Serum 1.4 g/dL (3.2-5.0); Alkaline Phosphatase 189 U/L (45-117); Anion Gap 7 (5-15); BUN 6 mg/dL (7-18); BUN/Creat Ratio 13.5 RATIO (10-20); Calcium,Total 6.9 mg/dL (8.5-10.1); Chloride 105 mmol/L (98-107); Creatinine, Serum 0.45 mg/dL (0.55-1.02); EST Glomerular Filtration Rate 167 mL/min (>60); Est Glom Filt Rate - Afr Amer 202 mL/min (>60); Globulin 3.9 g/dL (2.2-4.2); Glucose 80 mg/dL (74-106); Protein, Total 5.3 g/dL (6.4-8.2); Sodium Level 133 mmol/L (136-145); Thyroid Stim Hormone (TSH) 0.58 uIU/mL (0.358-3.74); Total Bilirubin < 0.10 mg/dL (0.20-1.00)
[2023-03-18 12:39] LABS: Pathologist Review Reviewed
== END | disposition home or self-care (01) ==
LOC: MFPLAB 10:58 → LAB 12:03
PROVIDERS: PCP Family Medicine; Referring Provider Family Medicine; Visit Provider Family Medicine
DX: K92.1 Melena (principal); E87.1 Hypo-osmolality and hyponatremia
CPT/HCPCS: 36415; 80053; 80164; 82274; 84443; 85025; 85652; 86140; 87177; 87209; 87493

== ENCOUNTER → 2023-03-26 | Outpatient (CLI) | payer MEDICARE, MEDICAID, SELFPAY ==
--- NOTE | 2023-03-26 08:17 | BD_ITS ---
STUDY: DUAL ENERGY X-RAY ABSORPTIOMETRY / DXA REASON FOR EXAM: Female, 37 years old. 733.00OsteoporosisBONE DENSITY REASON FOR EXAM TECHNIQUE: Bone Mineral Density (BMD) measurements of lumbar spine and left hip were obtained. COMPARISON: Comparison is made with prior study dated July 07, 2019. FINDINGS: Lumbar Spine (L1-L4): g/cm2 (0.847) / T-score (-1.8) / Z-score (-1.6) Findings are suggestive of osteopenia with a moderate fracture risk. Left Femur Total: g/cm2 (0.474) / T-score (-3.8) / Z-score (-3.7) Left Femoral Neck: g/cm2 (0.379) / T-score (-4.2) / Z-score (-4.0) BD/Dexa Bone Density Study IMPRESSION: The patient is considered osteoporotic as outlined below according to World Dl Organization (WHO) criteria with a high fracture risk. Reference Information: The T-score is the number of standard deviations above or below the standard which is normal for young adults at their peak bone mineral density. The World Health Organization (WHO) interprets the T-scores as follows: Above -1 Normal bone density Between -1 and -2.5 Osteopenia Equal to / or below -2.5 Osteoporosis As a practical clinical guideline, osteopenia may be graded as follows: Mild -1 through -1.5 Moderate -1.6 through -2.0 Severe -2.1 through -2.4 The Z-score is the number of standard deviations above or below age-matched controls. A Z-score of less than -1.5 would be considered abnormal. References: 1. NIH Osteoporosis and Related Bone Diseases www osteo.org 2. International Society for Clinical Densitometry www iscd.org 3. National Osteoporosis Foundation www nof.org Electronically Signed: Kaz Zeng MD at 9:46 EDT ,
== END | disposition home or self-care (01) ==
LOC: OPBD 08:12
PROVIDERS: PCP Family Medicine; Referring Provider Family Medicine; Visit Provider Family Medicine
DX: M81.0 Age-related osteoporosis without current pathological fracture (principal); N95.9 Unspecified menopausal and perimenopausal disorder
CPT/HCPCS: 77080

== ENCOUNTER → 2023-04-07 | Outpatient (CLI) | payer MEDICARE, MEDICAID, SELFPAY ==
[2023-04-07 17:36] LABS: Absolute Lymphocyte Count 2.81 X10^3/uL (0.83-4.51); Absolute Neutrophil Count 0.8 X10^3/uL (2.0-7.7); Basophil# 0.03 X10^3/uL; Basophil% 0.7 % (0-1); Eosinophil# 0.08 X10^3/uL; Eosinophils% 1.8 % (0-5); Hematocrit 32.7 % (37-47); Hemoglobin 9.8 g/dL (12.0-15.0); Lymphocyte # 2.81 X10^3/ul (0.83-4.51); Lymphocyte % 63.3 % (19-41); Mean Corpuscular Hgb 32.7 pg (27.0-32.0); Mean Platelet Vol. 11.3 fl (6.2-12.0); Monocyte# 0.74 X10^3/uL; Monocyte% 16.7 % (0-10); NRBC Flagged by Analyzer 1.1 % (0-5); Neutrophil # 0.76 X10^3/uL (2.7-7.7); POSITIVE DIFFERENTIAL YES; POSITIVE MORPHOLOGY YES; Platelet Count 340 K/mm3 (150-450); RBC Distribution Width CV 20.4 % (11.6-14.6); RBC Distribution Width SD 81.3 fl (35.1-43.9); White Blood Count 4.4 K/mm3 (4.4-11.0)
[2023-04-07 17:40] LABS: Differential Indicated SCAN CRITERIA MET
[2023-04-07 18:06] LABS: Differential Comment SCANNED
[2023-04-07 18:16] LABS: Vitamin B12 682 pg/mL (211-911)
[2023-04-07 18:32] LABS: Anion Gap 5 (5-15); BUN 17 mg/dL (7-18); BUN/Creat Ratio 42.1 RATIO (10-20); Calcium,Total 8.6 mg/dL (8.5-10.1); Chloride 114 mmol/L (98-107); EST Glomerular Filtration Rate 187 mL/min (>60); Est Glom Filt Rate - Afr Amer 226 mL/min (>60); Ferritin 25 ng/mL (8-252); Glucose 86 mg/dL (74-106); Iron 50 ug/dL (50-170); Iron Binding Capacity,Total 349 ug/dL (250-450); Magnesium 2.8 mg/dL (1.6-2.6); Potassium 4.5 mmol/L (3.5-5.1); Prealbumin 25.5 mg/dL (20.0-40.0); Sodium Level 142 mmol/L (136-145)
[2023-04-07 19:32] LABS: Valproic Acid (Depakene) Level 87 ug/mL (50-100)
[2023-04-07 19:37] LABS: ALB/GLOB Ratio 0.8 RATIO (0.9-2.4); AST(SGOT) 17 U/L (15-37); Alanine Aminotransfer ALT/SGPT 14 U/L (13-56); Albumin, Serum 2.5 g/dL (3.2-5.0); Alkaline Phosphatase 69 U/L (45-117); Anion Gap 5 (5-15); BUN 17 mg/dL (7-18); BUN/Creat Ratio 41.5 RATIO (10-20); CRP < 2.90 mg/L (0.0-3.0); Calcium,Total 8.5 mg/dL (8.5-10.1); Chloride 113 mmol/L (98-107); Creatinine, Serum 0.41 mg/dL (0.55-1.02); EST Glomerular Filtration Rate 185 mL/min (>60); Est Glom Filt Rate - Afr Amer 224 mL/min (>60); Globulin 3.2 g/dL (2.2-4.2); Glucose 88 mg/dL (74-106); Potassium 4.5 mmol/L (3.5-5.1); Protein, Total 5.7 g/dL (6.4-8.2); Sodium Level 142 mmol/L (136-145)
== END | disposition home or self-care (01) ==
LOC: MFPLAB 15:50 → MTLAB 16:13
PROVIDERS: PCP Family Medicine; Referring Provider Family Medicine; Visit Provider Family Medicine
DX: D64.9 Anemia, unspecified (principal); G40.909 Epilepsy, unspecified, not intractable, without status epilepticus; K92.1 Melena; M79.89 Other specified soft tissue disorders; R19.7 Diarrhea, unspecified
CPT/HCPCS: 36415; 80048; 80053; 80164; 82607; 82728; 82746; 83540; 83550; 83735; 84134; 85025; 86140

== ENCOUNTER → 2023-05-09 | Outpatient (CLI) | payer MEDICARE, MEDICAID, SELFPAY | END | disposition home or self-care (01) | LOC: MFPLAB 15:42 | PROVIDERS: PCP Family Medicine; Visit Provider Family Medicine | DX: R69 Illness, unspecified (principal) | CPT/HCPCS: 36415; 82728; 83540; 83550 ==

== ENCOUNTER → 2023-05-13 | Outpatient (CLI) | payer MEDICARE, MEDICAID, SELFPAY ==
[2023-05-13 18:03] LABS: Absolute Lymphocyte Count 2.71 X10^3/uL (0.83-4.51); Absolute Neutrophil Count 2.1 X10^3/uL (2.0-7.7); Basophil# 0.02 X10^3/uL; Basophil% 0.3 % (0-1); Eosinophil# 0.17 X10^3/uL; Eosinophils% 2.9 % (0-5); Hematocrit 37.8 % (37-47); Immature Platelet Fraction 10.3 % (1.0-7.9); Lymphocyte # 2.71 X10^3/ul (0.83-4.51); Lymphocyte % 46.2 % (19-41); Mean Corp Hgb Conc 29.1 g/dL (32-36); Mean Corpuscular Hgb 32.5 pg (27.0-32.0); Mean Corpuscular Volume 111.8 fL (81-99); Mean Platelet Vol. 12.3 fl (6.2-12.0); Monocyte# 0.79 X10^3/uL; Monocyte% 13.5 % (0-10); NRBC Flagged by Analyzer 1.4 % (0-5); Neutrophil # 2.13 X10^3/uL (2.7-7.7); Neutrophil % 36.4 % (47-70); POSITIVE COUNT YES; POSITIVE MORPHOLOGY YES; Platelet Count 219 K/mm3 (150-450); RBC Distribution Width CV 19.2 % (11.6-14.6); RET-HE 29.9 pg (30-35); Red Blood Count 3.38 M/mm3 (4.2-5.4); Reticulocyte Count 2.78 % (0.5-1.5); White Blood Count 5.9 K/mm3 (4.4-11.0)
[2023-05-13 18:09] LABS: Differential Indicated SCAN CRITERIA MET
[2023-05-13 18:13] LABS: Ferritin 9 ng/mL (8-252); Iron 72 ug/dL (50-170); Iron Binding Capacity,Total 575 ug/dL (250-450); PERCENT IRON SATURATION 12.5 % (15.0-55.0)
[2023-05-13 18:51] LABS: Platelet Estimate ADEQUATE (ADEQ)
== END | disposition home or self-care (01) ==
LOC: MFPLAB 16:19
PROVIDERS: PCP Family Medicine; Visit Provider Family Medicine
DX: K92.1 Melena (principal)
CPT/HCPCS: 36415; 82728; 83540; 83550; 85025; 85045

== ENCOUNTER → 2023-07-30 | Outpatient (CLI) | payer MEDICARE, MEDICAID, SELFPAY ==
--- NOTE | 2023-07-30 15:30 | SP.MBSS_ITS ---
Modified Barium Swallow Patient Information Study Date: 07/30/23 Study Time: 13:00 Direct Billable Minutes: 122 Total Minutes procedure & reportin Diagnosis: Dysphagia R13.10 Referring Physician: Curly Sauceda Reason for Referral: Objectively assess swallow function, assess risk for aspiration, and determine recommendations for least restrictive diet textures and compensatory strategies to improve safety of swallow. Medical History: PMH: GERD, History of osteoporosis, Rett syndrome, Scoliosis, COVID-19 PNA, Falls (years ago per mother, patient required stitches to her head), and Seizure disorder. The patient's mother was present for the evaluation and provided all history. The patient has a history of dysphagia and had MBSS completed in [place] in 2006. She has for years been consuming soft solids (e.g. noodles, processed/soft meats) / thin liquids. Recently, she has had increased coughing with both food and drink at at least 1 meal per day. She also regurgitates food or drink ~1X/week, especially when consuming OJ or tomato sauce. GERD is managed by medication. Mother provides all feeding assistance. The patient does not drink by a straw. Current Diet Ordered: Soft solids / Thin liquids Dentition: Natural Teeth Mental Status: Impaired (Difficulty following commands - mod-max verbal cues for keeping her head up) Penetration-Aspiration Scale Penetration-Aspiration Scale: OBJECTIVE ASSESSMENT OF SWALLOW FUNCTION (QUANTITATIVE ? PER TRIAL): PENETRATION / ASPIRATION SCALE (RIVERA): 1 = does not enter airway 2 = enters airway/above vocal folds/ejected 3 = enters airway/above vocal folds/not ejected 4 = enters airway/contacts vocal folds/ejected 5 = enters airway/contacts vocal folds/not ejected 6 = enters airway/below vocal folds/ejected 7 = enters airway/below vocal folds/not ejected despite effort 8 = enters airway/below vocal folds/no effort VIDEOFLOROSCOPIC SCALE SCORE (RIVERA): Grade I = aspiration of material that has penetrated into the laryngeal vestibule, intact cough reflex Grade II = aspiration < 10 % of the bolus, intact cough reflex Grade III = aspiration of < 10 % of the bolus, reduced cough reflex or aspiration of > 10 % of the bolus, intact cough reflex Grade IV = aspiration of > 10 % of the bolus, reduced cough reflex Penetration-Aspiration Scale Score Thin Liquid via teaspoon: Result: 1= does not enter airway Thin Liquid via small single sip: cup: Result: 2= enter airway/above vocal folds/ejected Thin Liquid via sequential sips: cup: Result: 2= enter airway/above vocal folds/ejected Pudding via teaspoon: Result: 1= does not enter airway 1/4 Cookie in Barium Pudding: Result: 1= does not enter airway Thin Liquid via sequential sips: cup Trial 2: Result: 2= enter airway/above vocal folds/ejected Oral Phase Labial Seal: Escape beyond mid-chin (Excessive anterior loss at end of the study was due to APPLIED MATHEMATICIAN spilling when providing sequential sips) Tongue Control During Bolus Hold: Posterior escape of greater than half of bolus Bolus Preparation/Mastication: Disorganized chewing/mashing with solid pieces of bolus unchewed Bolus Transport/Lingual Motion: Delayed initiation of tongue motion Oral Residue: Residue collection on oral structures Pharyngeal Phase Initiation of Pharyngeal Swallow: Bolus head in pyriforms Soft Palate Elevation: Escape to nasopharynx Laryngeal Elevation: Comp. Superior move thyroid cart w/comp. apprx arytenoid cart-epig pet Anterior Hyoid Excursion: Partial anterior movement Epiglottic Movement: Complete inversion Laryngeal Vestibule Closure at Height of Swallow: Incomplete; narrow column of air/contrast in laryngeal vestibule (trace laryngeal penetration with full ejection with sips of thin via cup) Pharyngeal Stripping Wave: Present - complete Pharyngoesophageal Segment Opening: Complete distension and complete duration; no obstruction of flow Tongue Base Retraction: Trace column of contrast between tongue base & post. pharyngeal wall Pharyngeal Residue: Trace residue within or on pharyngeal structures Esophageal Phase Esophageal Clearance: Complete clearance Diagnosis/Impression Diagnosis: Moderate oral dysphagia R13.11, Mild pharyngeal dysphagia R13.13 Impression: The oral phase is primarily marked by... -Prolonged, disorganized mastication. -Decreased bolus control with posterior loss of >1/2 of sequential sips of thin liquids to the pyriforms prior to swallow onset. -Mild oral residue most notable with sequential sip of thin liquids. The pharyngeal phase is primarily marked by... -Escape of collection of contrast to the nasopharynx seen with sequential sips of thin. -Delayed swallow onset, most notable with sequential sips of thin. -Trace laryngeal penetration of liquids via cup with full ejection. No aspiration observed. 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 APPLIED MATHEMATICIAN encouraged slow rate of feeding and small bolus size to decrease risk for aspiration, as well as to allow the patient time to clear each bite/sip from the oral cavity prior to providing the next bite/sip. Complete esophageal clearance of pudding and cookie; however, APPLIED MATHEMATICIAN has concerns for reflux aspiration risk given hx of GERD and her mother reporting of regurgitation of food/drink 1X weekly (OJ and tomato sauce). Recommendations Diet: Mechanical Soft Textures (Soft and bite size textures - IDDSI Level 6) and Thin Liquids Comment: Allow the patient time to clear each bite/sip from the oral cavity prior to providing the next bite/sip. Compensatory Strategies: Small Bites, Small Sips, Slow Rate, Alternate bites/solids and sips/liquids, Sitting upright (Neck in upright position) and Remain sitting upright for 30 minutes after PO intake Supervision: Total Feed Recommend Repeat Modified Barium Swallow: TBD Need for Skilled Speech Therapy Services: Yes Comment: Please consider outpatient dysphagia therapy if the patient's family would require further training re: recommended diet textures and aspiration/reflux precautions. The patient's mother was educated in recommendations following MBSS and verbalized good understanding. Recommended Referrals: GI Consult (Will recommend GI consult as the APPLIED MATHEMATICIAN is concerned the patientis at risk for reflux aspiration due to Hx of GERD and her mother reporting of regurgitation of food/drink 1X weekly (OJ and tomato sauce).) Education Completed: 1. Described result of evaluation. and 4. Family/caregivers understand evaluation & agree w/ goals & tx plan. Status Active ST Patient: Active Contact Information [facility] Speech Therapy:: Lucinda Reed M.A. [facility]-APPLIED MATHEMATICIAN Speech-Language Pathologist [facility] [address] [place] [address] [email or web address] [phone]
== END | disposition home or self-care (01) ==
LOC: RAD 12:50
PROVIDERS: PCP Family Medicine; Referring Provider Family Medicine; Visit Provider Family Medicine
DX: R13.10 Dysphagia, unspecified (principal)
CPT/HCPCS: 74230; 92611

== ENCOUNTER 2023-07-31 13:58 | Outpatient (CLI) | payer MEDICARE, MEDICAID, SELFPAY ==
[2023-07-31 14:55] LABS: hCG Titer Quant., Serum < 1 mIU/mL (1-3)
[2023-07-31 16:38] LABS: Estradiol 16.6 pg/mL; Follicle Stimulating Hormone 6.2 mIU/mL; T4 Free Direct 0.64 ng/dL (0.76-1.46); Thyroid Stim Hormone (TSH) 1.94 uIU/mL (0.358-3.74)
== END 2023-07-31 23:59 | disposition home or self-care (01) ==
LOC: PAVLAB 13:58
PROVIDERS: PCP Family Medicine; Referring Provider Nurse Practitioner Women's Health; Visit Provider Nurse Practitioner Women's Health
DX: Z13.29 Encounter for screening for other suspected endocrine disorder (principal); L65.9 Nonscarring hair loss, unspecified; N91.2 Amenorrhea, unspecified
CPT/HCPCS: 36415; 82670; 83001; 84439; 84443; 84702

== ENCOUNTER → 2024-01-06 | Outpatient (CLI) | payer MEDICARE, MEDICAID, SELFPAY ==
[2024-01-06 12:39] LABS: Hematocrit 30.5 % (37-47); Hemoglobin 8.7 g/dL (12.0-15.0); Mean Corp Hgb Conc 28.5 g/dL (32-36); Mean Corpuscular Hgb 27.8 pg (27.0-32.0); Mean Corpuscular Volume 97.4 fL (81-99); Mean Platelet Vol. 11.5 fl (6.2-12.0); POSITIVE MORPHOLOGY YES; Platelet Count 236 K/mm3 (150-450); RBC Distribution Width CV 21.3 % (11.6-14.6); RBC Distribution Width SD 75.7 fl (35.1-43.9); Red Blood Count 3.13 M/mm3 (4.2-5.4); White Blood Count 5.2 K/mm3 (4.4-11.0)
[2024-01-06 13:10] LABS: PTHIN 53.4 pg/mL (18.4-80.1)
[2024-01-06 13:12] LABS: Vitamin B12 631 pg/mL (211-911)
[2024-01-06 13:23] LABS: Scan Indicated on CBC? Y/N YES- FLAGS NOTED
[2024-01-06 13:24] LABS: Differential Comment SCANNED
[2024-01-06 13:32] LABS: ALB/GLOB Ratio 0.8 RATIO (0.9-2.4); AST(SGOT) 19 U/L (15-37); Alanine Aminotransfer ALT/SGPT 15 U/L (13-56); Albumin, Serum 2.9 g/dL (3.2-5.0); Alkaline Phosphatase 75 U/L (45-117); Anion Gap 4 (5-15); BUN 26 mg/dL (7-18); BUN/Creat Ratio 48.7 RATIO (10-20); Calcium,Total 8.9 mg/dL (8.5-10.1); Chloride 111 mmol/L (98-107); Creatinine, Serum 0.53 mg/dL (0.55-1.02); EST Glomerular Filtration Rate 135 mL/min (>60); Est Glom Filt Rate - Afr Amer 163 mL/min (>60); Ferritin 8 ng/mL (8-252); Globulin 3.8 g/dL (2.2-4.2); Glucose 92 mg/dL (74-106); Iron 41 ug/dL (50-170); Magnesium 2.6 mg/dL (1.6-2.6); Phosphorus 2.4 mg/dL (2.5-4.9); Potassium 3.8 mmol/L (3.5-5.1); Protein, Total 6.7 g/dL (6.4-8.2); Sodium Level 142 mmol/L (136-145); Thyroid Stim Hormone (TSH) 1.88 uIU/mL (0.358-3.74); Total Bilirubin < 0.10 mg/dL (0.20-1.00)
== END | disposition home or self-care (01) ==
LOC: MFPLAB 09:27
PROVIDERS: PCP Family Medicine; Visit Provider Family Medicine
DX: M79.89 Other specified soft tissue disorders (principal); D64.9 Anemia, unspecified; M81.0 Age-related osteoporosis without current pathological fracture
CPT/HCPCS: 36415; 80053; 82306; 82607; 82728; 83540; 83735; 83970; 84100; 84443; 85027

== ENCOUNTER → 2024-01-14 | Outpatient (CLI) | payer MEDICARE, MEDICAID, SELFPAY ==
--- NOTE | 2024-01-14 07:54 | VDLE_ITS ---
Reason For Study: LLE Swelling RIGHT LEFT FV is compressible, spontaneous, phasic, GSV is normal. competent and demonstrates normal CFV is compressible, spontaneous, phasic, augmentation. competent, and demonstrates normal Procedure augmentation. This is a venous duplex using B-mode, color FV is compressible, spontaneous, phasic, flow and spectral Doppler. competent and demonstrates normal Exam performed in department. augmentation. The exam was diagnostic. POP V is compressible, spontaneous, phasic, competent and demonstrates normal augmentation. T/P Trunk is compressible. PTV is compressible. LT PerV is compressible. VL/Venous Duplex US, Unilateral Interpretation Summary There is no evidence of left lower extremity deep vein thrombosis. Left great s aphenous vein appears patent and compressible segmentally. Normal flow patterns right common femoral vein Ordering Physician: Mir Sauceda Referring Physician: Mir Sauceda Performed By: Ulices Marcos RVT and Student
== END | disposition home or self-care (01) ==
LOC: CVS 07:52
PROVIDERS: PCP Family Medicine; Referring Provider Family Medicine; Visit Provider Family Medicine
DX: M79.89 Other specified soft tissue disorders (principal)
CPT/HCPCS: 93971

== ENCOUNTER → 2024-04-16 | Outpatient (CLI) | payer MEDICARE, MEDICAID, SELFPAY ==
[2024-04-16 17:43] LABS: Absolute Lymphocyte Count 3.04 X10^3/uL (0.83-4.51); Absolute Neutrophil Count 1.9 X10^3/uL (2.0-7.7); Basophil# 0.02 X10^3/uL; Basophil% 0.3 % (0-1); Eosinophils% 3.4 % (0-5); Hematocrit 39.8 % (37-47); Hemoglobin 12.2 g/dL (12.0-15.0); Lymphocyte # 3.04 X10^3/ul (0.83-4.51); Lymphocyte % 51.8 % (19-41); Mean Corp Hgb Conc 30.7 g/dL (32-36); Mean Corpuscular Hgb 32.3 pg (27.0-32.0); Mean Corpuscular Volume 105.3 fL (81-99); Mean Platelet Vol. 11.8 fl (6.2-12.0); Monocyte# 0.72 X10^3/uL; Monocyte% 12.3 % (0-10); NRBC Flagged by Analyzer 0.9 % (0-5); Neutrophil # 1.85 X10^3/uL (2.7-7.7); Neutrophil % 31.5 % (47-70); POSITIVE MORPHOLOGY YES; Platelet Count 207 K/mm3 (150-450); RBC Distribution Width CV 21.2 % (11.6-14.6); RBC Distribution Width SD 81.3 fl (35.1-43.9); RET-HE 35.9 pg (30-35); Red Blood Count 3.78 M/mm3 (4.2-5.4); Reticulocyte Count 2.08 % (0.5-1.5); White Blood Count 5.9 K/mm3 (4.4-11.0)
[2024-04-16 18:07] LABS: Differential Indicated SCAN CRITERIA MET
[2024-04-16 18:08] LABS: Platelet Estimate ADEQUATE (ADEQ)
[2024-04-16 18:09] LABS: Anisocytosis 1+; Macrocytosis 1+; Ovalocyte RARE; Red Cell Morphology N CHROM NORMAL (NORM C&C)
[2024-04-16 18:33] LABS: Ferritin 49 ng/mL (8-252); Iron 208 ug/dL (50-170)
== END | disposition home or self-care (01) ==
LOC: MFPLAB 15:45
PROVIDERS: PCP Family Medicine; Visit Provider Family Medicine
DX: D64.9 Anemia, unspecified (principal)
CPT/HCPCS: 36415; 82728; 83540; 85025; 85045

== ENCOUNTER → 2024-09-03 | Outpatient (CLI) | payer MEDICARE, MEDICAID, SELFPAY | END | disposition home or self-care (01) | LOC: RAD 12:36 | PROVIDERS: PCP Family Medicine; Referring Provider Family Medicine; Visit Provider Family Medicine | DX: R13.10 Dysphagia, unspecified (principal); F84.2 Rett's syndrome | CPT/HCPCS: 74230 ==

== ENCOUNTER 2024-09-27 15:30 | Outpatient (RCR) | payer MEDICARE, MEDICAID, SELFPAY ==
--- NOTE | 2024-07-26 09:22 | HP.SP.EV_ITS ---
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 RX HERE Medical Diagnosis: RETTS SYNDROME Date of Onset of Diagnosis: June 2023 Previous speech therapy: Yes Results: MBSS in July 2023 at [facility]. Recommendations Diet: Mechanical Soft Textures (Soft and bite size textures - IDDSI Level 6) and Thin Liquids Comments: Allow the patient time to clear each bite/sip from the oral cavity prior to providing the next bite/sip. Compensatory Strategies: Small Bites, Small Sips, Slow Rate, Alternate bites/solids and sips/liquids, Sitting upright (Neck in upright position) and Remain sitting upright for 30 minutes after PO intake Supervision: Total Feed Other Relevant Medical History/Diagnoses/Surgery: Rett Syndrome, Seizure disorder, GERD, scoliosis, osteoporosis Medications related to this diagnosis: Depakote, tegratol, topamx, nexium, baclofen clonazepam, docusate sodium, prolia, ferrous sulfate, miralax, peda lax liquid, vitamin D3, Viactiv soft chews. Smoking Status: Never smoker Diagnosis Diagnosis: Dysphagia Pain Is pain an issue with your current prescribed condition?: No Personal Preferred language: Ghanaian Patient Allergies Allergies Allergies: Allergies diazepam (From Valium) Allergy (Verified 03/15/23 06:41) Other stopped breathing morphine Allergy (Verified 03/15/23 06:41) Other stopped breathing Penicillins Allergy (Verified 03/15/23 06:41) Rash Subjective Dysphagia Symptoms Reported Symptoms/Problems with: Coughing Current Diet Solids Current Diet: Regular Current Diet Liquids Current Liquids: Thin Comments Parent report: -: Both her parents reported that she has intermittent coughing with no determined pattern while eating. Objective Dysphagia Administered by Administered by: Caregiver Thin Liquids Administred via: Cup Bolus clearance: fully cleared Gagging: No Cough: none observed/unable to assess Patient Report: Patient unable to give comments as she is non speaking. Comments: No overt s/s of aspiration noted. Moist & Minced Administered via: Spoon Oral Preparation: minimal chew thrust gravity assisted Oral Transit: Delay > 1 seconds Gagging: No Cough: none observed/unable to assess Comments: Fruit cup pieces given via fork. Patient exhibited minimal chewing and appeared to swallow piece whole. No overt s/s of penetration/aspiration. Soft & Bite sized (Mechanical) Oral Preparation: minimal chew thrust gravity assisted and lip or tongue seal bolus escape Oral Transit: Delay > 5 seconds Gagging: No Cough: none observed/unable to assess Comments: Patient was given a small bite of michelet doone cookie. She exhibited a munching pattern during oral phase. No overt s/s of penetration or aspiration. Swallowing Impairment Contributing Factors to Swallowing Impairment: Reduced Alertness or Attention, Difficulty Following Directions, Reduced Oral Strength/Coordination/Sensation, Mastication Inefficiency and Impaired Oral-Pharyngeal Transport Impact Impact on Safety & Functioning: Risk for Aspiration and Risk for Inadequate Nutrition/Hydration Recommendations Modified Barium Swallow/Cookie Swallow Recommended: Yes Swallowing Treatment: Yes Diet Texture Recommendations Solids: Soft & Bite sized (Level 6, Chopped) Liquids: Thin (Level 0) Safety Saftey Precautions/Swallowing Recommendations (Check all that Apply): Feed Only when Alert, Reduce Distractions, Small Sips & Bites when Eating and Alternate Liquids & Solids Results Swallowing Within Normal Limits: No Swallowing Diagnosis: Oropharyngeal Phase Dysphagia (R13.12) Subjective Oral Motor Comments Comments: Patient is unable to follow directions to complete an oral motor assessment. Objective Oral Motor Oral Status Dentition: Missing Teeth Respiratory Status Respiratory Status: Room Air Swallowing Performance Scale Swallowing Performance Scale Swallowing Performance Scale Result: 3 Mild Reference: Neuro-QoL instrument Radiation Oncology Patient Plan Plan Plan: Recommend patient complete an MBSS and parents are in agreement. Due to patient being unable to participate in exercises, anticipate therapy if needed to focus on parent education. Recommendations Treatment Warranted: Yes Treatment Warranted: Dysphagia Progress Prognosis: Good Frequency Frequency: 1x/Week Duration: 4 Weeks Visits in this POC: 4 Patient/Family Goal Patient/Family Goal: Parents wish to determine if patient is safely eating or if something is going in her airway. Goals that are Established Determination:: Goals will be added/modified as deemed necessary and appropriate. Therapy will be discontinued when results of re-evaluation indicate therapy is no longer needed or lack of progress has been documented. Goal #1-5 Goal #1: Completion of MBSS which parents are in agreement. Goal #2: Caregiver education regarding recommended diet and swallow precautions based on results of MBSS. Education Patient has Indicated that the Following Identified Educational Needs: Cognitively Impaired Patient Instruction Patient Education: Diagnosis and Treatment Plan Person Taught: Family
--- NOTE | 2024-09-03 13:29 | SP.MBSS_ITS ---
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 They were referred from Dr. Sauceda's office for participation in a Modified Barium Swallow Study (MBSS) due to a history of oropharyngeal dysphagia. The most recent MBSS, conducted in July 2023, diagnosed the patient with moderate oral phase dysphagia and mild pharyngeal phase dysphagia. At that time, a diet of soft and bite-sized foods (IDDSI Level 6) and thin liquids with compensatory strategies was recommended. Additionally, speech therapy advised a GI referral due to frequent regurgitation of oral intake. During the current MBSS, the patient's mother and father were present. They reported that the patient has not yet seen a GI specialist but has experienced increased coughing with oral intake. Respiratory Status: Oxygenating on Room Air Penetration-Aspiration Scale Penetration-Aspiration Scale: OBJECTIVE ASSESSMENT OF SWALLOW FUNCTION (QUANTITATIVE ? PER TRIAL): PENETRATION / ASPIRATION SCALE (RIVERA): 1 = does not enter airway 2 = enters airway/above vocal folds/ejected 3 = enters airway/above vocal folds/not ejected 4 = enters airway/contacts vocal folds/ejected 5 = enters airway/contacts vocal folds/not ejected 6 = enters airway/below vocal folds/ejected 7 = enters airway/below vocal folds/not ejected despite effort 8 = enters airway/below vocal folds/no effort VIDEOFLOROSCOPIC SCALE SCORE (RIVERA): Grade I = aspiration of material that has penetrated into the laryngeal vestibule, intact cough reflex Grade II = aspiration < 10 % of the bolus, intact cough reflex Grade III = aspiration of < 10 % of the bolus, reduced cough reflex or aspiration of > 10 % of the bolus, intact cough reflex Grade IV = aspiration of > 10 % of the bolus, reduced cough reflex Penetration-Aspiration Scale Score Thin Liquid via small single sip: cup: Result: 2= enter airway/above vocal folds/ejected Thin Liquid via small single sip: cup Trial 2: Result: 1= does not enter airway Thin Liquid via small single sip: cup Trial 3: Result: 1= does not enter airway Cookie: Result: 1= does not enter airway Pudding: Result: 1= does not enter airway Thin Liquid via small single sip: cup Trial 4: Result: 1= does not enter airway Oral Phase Labial Seal: Escape beyond mid-chin Tongue Control During Bolus Hold: Posterior escape of greater than half of bolus Bolus Preparation/Mastication: Disorganized chewing/mashing with solid pieces of bolus unchewed Bolus Transport/Lingual Motion: Delayed initiation of tongue motion Oral Residue: Residue collection on oral structures Pharyngeal Phase Initiation of Pharyngeal Swallow: Bolus head in pyriforms Soft Palate Elevation: No bolus between soft palate and pharyngeal wall Laryngeal Elevation: Partial superior movement thyroid cart/partial apprx aryt- epig petiole Anterior Hyoid Excursion: Complete anterior movement Epiglottic Movement: Partial inversion Laryngeal Vestibule Closure at Height of Swallow: Incomplete; narrow column of air/contrast in laryngeal vestibule Pharyngeal Stripping Wave: Present - complete Pharyngoesophageal Segment Opening: Complete distension and complete duration; no obstruction of flow Tongue Base Retraction: Trace column of contrast between tongue base & post. pharyngeal wall Pharyngeal Residue: Trace residue within or on pharyngeal structures Esophageal Phase Esophageal Clearance: Esophageal retention w/ retrograde flow below pharyngoesophageal seg. Diagnosis/Impression Diagnosis: moderate oral phase dysphagia, mild pharyngoesophageal dysphagia Impression: The patient presents with mild to moderate oropharyngeal dysphagia, clinically suspected due to Rett syndrome. The oral phase is characterized by disorganized mastication, requiring extended time to elicit a swallow. During testing, the patient had difficulty with AP transit when consuming 1/5 of a Esther Doone cookie, with a majority of the bolus pooling in the back of the tongue and vallecula before being cleared with additional effort. Compared to a pudding (puree) trial, the patient required significantly more time and effort to clear the cookie bolus. The PINKING SEWING MACHINE OPERATOR provided education on incorporating more purees into the patient?s diet to increase intake and reduce choking episodes, as the patient is at risk for aspiration due to oral phase deficits. A delayed pharyngeal swallow onset was observed, with one instance of penetration, which was completely ejected with thin liquids. Thin liquid trials were conducted using the patient?s own sippy cup to mimic their home routine. No aspiration was observed. There were no significant changes in esophageal dysphagia, though retention with retrograde flow was observed. Speech therapy continues to recommend a GI referral, and the patient?s mother reported they will schedule an appointment with Dr. Marcos. Recommendations Diet: Minced and Moist Textures, Puree Textures and Thin Liquids Comment: Allow extra time to clear oral and suspected pharyngeal residues with minced and moist textures due to the significant amount of time required for swallowing. Benefits from alternating bite/sip to clear. Compensatory Strategies: Small Bites, Small Sips, Slow Rate, Feed only when alert, Multiple Swallows, Alternate bites/solids and sips/liquids, Sitting upright and Remain sitting upright for 30 minutes after PO intake Supervision: Total Feed Recommend Repeat Modified Barium Swallow: No Need for Skilled Speech Therapy Services: Yes Recommended Referrals: GI Consult Education Completed: 1. Described result of evaluation. and 2. Pt understands evaluation & agrees with goals and treatment plan. Status Active ST Patient: Active Contact Information [facility] Speech Therapy:: Saritha Oliveira M.A. CCC-PINKING SEWING MACHINE OPERATOR Speech-Language Pathologist [facility] [address] [place] [address] [phone]
--- NOTE | 2024-12-14 15:57 | HP.SP.DC_ITS ---
ST Discharge Summary Discharged: Discharge: Jamila Neumann is discharged from [facility] as of November 23, 2024. She was evaluated for dysphagia on 07/20/25 with a modified barium swallow study was recommended which was completed on 09/03/24. There was on visit following the MBSS to educate parents on results and recommendations. The patient is not able to actively participate in therapy and parents verbalized an understanding of education. Her chart was remained open until the end of October for parents to schedule an further visit if more support was needed from therapist. As no further visit was scheduled, the patient is discharged. Thank you for allowing me to participate in the care of this patient.
== END 2024-09-27 19:00 | disposition home or self-care (01) ==
LOC: SP 15:30
PROVIDERS: PCP Family Medicine; Referring Provider Family Medicine; Visit Provider Family Medicine
DX: F84.2 Rett's syndrome (principal)
CPT/HCPCS: 92526; 92610; 92611

== ENCOUNTER 2024-11-30 21:10 | Inpatient (IN) | payer MEDICARE, MEDICAID, SELFPAY ==
[2024-11-30 21:10] VITALS: BP 185/102; PULSE 118; RESP 17; TEMP 37.2; O2SAT 95
[2024-11-30 21:14] VITALS: BMI 22.6
--- NOTE | 2024-11-30 22:03 | EKG12_ITS ---
Test Reason : DYSRHYTHMIA Blood Pressure : */* mmHG Vent. Rate : 100 BPM Atrial Rate : 100 BPM P-R Int : 162 ms QRS Dur : 72 ms QT Int : 348 ms P-R-T Axes : 56 54 110 degrees QTcB Int : 448 ms Normal sinus rhythm ST & T wave abnormality, consider anterolateral ischemia Abnormal ECG Confirmed by Arnulfo Faith ([id number]), scientific publications editor ANGIE SOSA ([id number]) on 12/02/2024 10:02:32 AM Referred By: Confirmed By: Arnulfo Faith
[2024-11-30 22:14] VITALS: BP 172/114; PULSE 94; RESP 20; TEMP 37.2; O2SAT 96
[2024-11-30] MEDS: 0.9% Normal Saline (1000mL) 1,000 ML 999 ML IV (22:18)
[2024-11-30 22:26] LABS: Absolute Lymphocyte Count 1.93 X10^3/uL (0.83-4.51); Basophil# 0.02 X10^3/uL; Basophil% 0.2 % (0-1); Eosinophil# 0.04 X10^3/uL; Eosinophils% 0.4 % (0-5); Hematocrit 37.9 % (37-47); Hemoglobin 12.4 g/dL (12.0-15.0); Lymphocyte # 1.93 X10^3/ul (0.83-4.51); Lymphocyte % 19.9 % (19-41); Mean Corp Hgb Conc 32.7 g/dL (32-36); Mean Corpuscular Hgb 34.4 pg (27.0-32.0); Mean Corpuscular Volume 105.3 fL (81-99); Mean Platelet Vol. 10.4 fl (6.2-12.0); Monocyte# 1.69 X10^3/uL; Monocyte% 17.4 % (0-10); NRBC Flagged by Analyzer 1.1 % (0-5); Neutrophil # 5.99 X10^3/uL (2.7-7.7); Neutrophil % 61.6 % (47-70); POSITIVE DIFFERENTIAL YES; Platelet Count 182 K/mm3 (150-450); RBC Distribution Width CV 15.4 % (11.6-14.6); White Blood Count 9.7 K/mm3 (4.4-11.0)
[2024-11-30 22:28] LABS: Differential Indicated SCAN CRITERIA MET
[2024-11-30 22:51] LABS: Lactic Acid 1.1 mmol/L (0.0-2.0)
[2024-11-30 22:55] LABS: Prothrombin Time (Protime)PT. 13.5 SECONDS (11.7-14.9)
[2024-11-30 22:56] LABS: Partial Thromboplast Time 36.1 Seconds (24.1-36.2)
--- NOTE | 2024-11-30 22:59 | EX.ED.DYSGE1 ---
HPI History of Present Illness Chief Complaint: General Illness Informant: parent Narrative Narrative: 39-year-old male history of Rett syndrome presenting to the emergency room with fever and lethargy. Mom states that on Friday they noticed the patient to the acting her normal self and was having temperatures up to 101 over the past couple days. They note that she has been coughing with eating. She has had prior swallow studies in the past. No vomiting or diarrhea. No real coughing outside of eating. Mom's concern for possible aspiration pneumonia so they went to see their doctor who ordered a chest x-ray and abdominal series. These are not read yet but they were performed at the hospital. Mom states that tonight they went to give her a bath and she was very limp. They are concerned about possible dehydration because she has had this in the past and acted similar. They note that she has been urinating and have noticed a wet diaper every time they have going to change her with the exception of the last time. No new medications. They have been using acetaminophen for fever reduction. She typically has a bowel movement every 2 days and had a bowel movement yesterday. They note foul breath and wonders if she could have a possible dental infection. Mom and dad note no chronic wounds or recent rashes. [facility] Medical History Scoliosis History of osteoporosis GERD (gastroesophageal reflux disease) Seizure disorder Rett syndrome Home Medications ?Medication ?Instructions ?Recorded ?Last Taken ?Type baclofen 10 mg tablet 5 mg PO DAILY 03/15/23 Unknown History carbamazepine 100 mg chewable 200 mg PO Q12H 03/15/23 Unknown History tablet clonazepam 0.5 mg disintegrating 0.5 mg translingual PRN SEIZURE 03/15/23 Unknown History tablet divalproex 250 mg tablet,delayed 1,000 mg PO Q12H 03/15/23 Unknown History release docusate sodium 100 mg capsule 200 mg PO BID 03/15/23 Unknown History (Col-Rite) glycerin (laxative) 2.8 gram/2.7 2.8 g [place] QODAY 03/15/23 Unknown History mL rectal solution (Pedia-Lax) topiramate 100 mg tablet 150 mg PO Q12H 03/15/23 Unknown History denosumab 60 mg/mL subcutaneous 60 mg subcut [id number] 07/31/23 Unknown History syringe (Prolia) cholecalciferol (vitamin D3) 25 25 mcg PO DAILY 11/30/24 Unknown History mcg (1,000 unit) capsule (Vitamin D3) esomeprazole magnesium 20 mg 40 mg PO DAILY 11/30/24 Unknown History capsule,delayed release (Acid Sueding Machine Tender (esomeprazole)) ferrous sulfate 300 mg (60 mg 300 mg PO QODAY 11/30/24 Unknown History iron)/5 mL oral liquid trofinetide 200 mg/mL oral 6,000 mg PO BID 11/30/24 Unknown History solution (Daybue) Allergy/AdvReac Type Severity Reaction Status Date / Time diazepam (From Valium) Allergy Other Verified 11/30/24 21:10 morphine Allergy Other Verified 11/30/24 21:10 Penicillins Allergy Rash Verified 11/30/24 21:10 Surgical History History of ankle surgery Social History current occupational status: disabled Smoking Status: Never smoker alcohol intake: never substance use type: does not use do you feel safe at home: Yes additional social history: Rett Syndrome, Wheel chair bound ROS ROS ED ROS Narrative Lethargy Constitutional Constitutional ED: Reports fever(s); Denies chills or weight loss Eyes Eyes: Denies change in vision or diplopia ENT ENT ED: Denies ear pain, rhinorrhea or sore throat Cardiovascular Cardiovascular: Denies chest pain, orthopnea, palpitations or racing heartbeat Respiratory/Chest Respiratory/Chest: Reports cough; Denies dyspnea or orthopnea Gastrointestinal Gastrointestinal: Denies abdominal pain, diarrhea, nausea or vomiting Genitourinary Genitourinary ED: Denies dysuria, hematuria or urinary frequency Musculoskeletal Musculoskeletal: Denies arthralgias or myalgias Integumentary Denies abscess or rash Neurologic Neurologic: Denies headache(s) or weakness Endocrine Endocrinology: Denies polydipsia, polyphagia or polyuria Allergic/Immunologic Allergic/Immunologic ED: Denies mouth swelling, tongue swelling or urticaria EXAM Physical Exam Const Vital Signs: 11/30/24 21:10 11/30/24 21:10 11/30/24 21:37 Temperature 98.9 F 98.9 F Temperature Source Temporal Temporal Pulse Rate 118 H 118 H Respiratory Rate 17 17 Respiratory Effort Normal Blood Pressure 185/102 H 185/102 H Blood Pressure Mean 129 129 Pulse Ox 95 95 Oxygen Delivery Method Room Air 11/30/24 22:14 11/30/24 23:00 12/01/24 00:00 Temperature 99 F 99 F 98.9 F Temperature Source Axillary Axillary Axillary Pulse Rate 94 100 96 Respiratory Rate 20 H 14 16 Respiratory Effort Blood Pressure 172/114 H 145/123 H 150/100 H Blood Pressure Mean 133 130 114 Pulse Ox 96 97 97 Oxygen Delivery Method Room Air 12/01/24 01:00 12/01/24 02:00 Temperature 98.9 F 98.9 F Temperature Source Temporal Axillary Pulse Rate 99 106 H Respiratory Rate 24 H 24 H Respiratory Effort Blood Pressure 150/95 H 145/101 H Blood Pressure Mean 113 115 Pulse Ox 92 96 Oxygen Delivery Method Room Air Room Air Positive well nourished and well developed General Appearance ED: well developed and NAD HEENT Reports normocephalic, head/scalp atraumatic and dry mucous membranes HEENT Narrative: There is some mild gingivitis around the but no definitive abscess. I do not see evidence of thrush I am not able to do a posterior pharyngeal examination due to patient clot ration. Mouth ED: Yes dry mucous membranes Mouth: dry mucous membranes Eyes PERRL and EOMs intact bilaterally Neck no lymphadenopathy, supple and no JVD Resp normal respiratory effort and clear to auscultation bilaterally Cardio regular rate, regular rhythm and no murmurs GI normal to inspection, nondistended, normoactive bowel sounds and non-tender Palpation: soft Back/Spine no CVA tenderness and normal ROM Extremity Extremity Narrative: Chronic contractures of the upper extremities held in a flexed position General Extremety ED: Negative for edema General Extremity: Negative for edema Neuro Sensorium / Orientation: alert Motor Exam: strength 5/5 throughout Psych Attitude: No agitated Mood & Affect: Negative for tearful Skin no rashes or lesions noted and no wounds MDM MDM MDM Narrative Medical decision making narrative: Differential diagnosis includes pneumonia UTI dental infection pharyngitis dehydration electrolyte abnormalities acute kidney injury viral syndrome White count 9.7 with a shift of the monocytes at 17.4. Hemoglobin 12.4 platelet count of 182. INR is 1 creatinine 0.88 with a BUN of 21 normal sodium potassium CO2 22.4 normal LFTs except for alkaline phosphatase of 109. Urinalysis showed no obvious infection. My depend interpretation of the chest x-ray from prior is no acute process. CT of the neck and chest with IV contrast was obtained read by radiology reviewed by myself. There was some patchiness throughout the lungs that could be atelectatic. Could be viral process. I do not feel that it necessarily represents true aspiration as it is in multiple lobes. She has not had cough except for when she eats. Clinically she appears slightly dehydrated with tachycardia and dry mucous membranes. Will speak with the hospitalist regarding admission as she is not eating or drinking. History & Record Review Discussion w/independent historian: Patient and Family Additional record(s) reviewed:: Prior inpatient record, Prior ED visit and Prior labs Lab Data Attestation: I reviewed the patient's lab results. Labs: Laboratory Results - last 24 hr 11/30/24 11/30/24 22:17 23:48 WBC 9.7 RBC 3.60 L Hgb 12.4 Hct 37.9 MCV 105.3 H MCH 34.4 H MCHC 32.7 RDW Std Deviation 60.0 H RDW Coeff of Chayo 15.4 H Plt Count 182 MPV 10.4 Immature Gran % (Auto) 0.500 Neut % (Auto) 61.6 Lymph % (Auto) 19.9 Dunn % (Auto) 17.4 H Eos % (Auto) 0.4 Baso % (Auto) 0.2 Absolute Neuts (auto) 6.0 Absolute Lymphs (auto) 1.93 Nucleated RBC % 1.1 Differential Comment SCANNED PT 13.5 INR 1.0 APTT 36.1 Sodium 138 Potassium 3.3 Chloride 102 Carbon Dioxide 22.4 Anion Gap 14 BUN 21 H Creatinine 0.88 Estim Creat Clear Calc 52.99 Est GFR (MDRD) Non-Af 85 BUN/Creatinine Ratio 23.4 H Glucose 80 Lactic Acid 1.1 Calcium 9.4 Total Bilirubin 0.19 AST 31 ALT 14 Alkaline Phosphatase 109 H Total Protein 7.7 Albumin 3.7 Globulin 3.9 Albumin/Globulin Ratio 1.0 Urine Color Yellow Urine Clarity Clear Urine pH 6.5 Ur Specific Allen 1.010 Urine Protein 15 H Urine Glucose (UA) Normal Urine Ketones 15 H Urine Occult Blood 150 H Urine Nitrite Negative Urine Bilirubin Negative Urine Urobilinogen Normal Ur Leukocyte Esterase Negative Urine RBC 0 SEEN Urine WBC 0 SEEN Ur Squamous Epith Cells 0-5 SEEN Urine Bacteria 0 SEEN Urine Mucus RARE Radiography Diagnostic Testing: Clinical Impression(s) from Imaging Studies Chest CT 12/01/24 01:48 IMPRESSION: Mild appearing atelectasis at the lingula and left lower lobe. Mild patchy areas of ground-glass opacity at the left base may be inflammatory or infectious. Small area of atelectasis or scar at the right middle lobe. Reading Location: [facility] Soft Tissue Neck CT 12/01/24 01:48 IMPRESSION: There is significant motion artifact at the level of the epiglottis which limits the evaluation. No evidence of prevertebral edema. Reading Location: [facility] EKG Initial EKG: Attestation: I personally reviewed and interpreted this EKG as follows: Comments: Normal sinus rhythm ventricular rate of 100 bpm. Management Discussion w/another healthcare provider: Hospitalist (Dr Nicholson) Discharge Plan Triage Chief Complaint: General Illness ED Provider: Robles Mckinney Dx/Rx/DC Orders Primary Care Provider: Mir Sauceda
[2024-11-30 23:00] VITALS: BP 145/123; PULSE 100; RESP 14; TEMP 37.2; O2SAT 97
[2024-11-30 23:22] LABS: AST(SGOT) 31 U/L (<=31); Alanine Aminotransfer ALT/SGPT 14 U/L (<=34); Albumin, Serum 3.7 g/dL (3.5-5.0); Alkaline Phosphatase 109 U/L (35-104); Anion Gap 14 (5-15); BUN 21 mg/dL (4-19); BUN/Creat Ratio 23.4 RATIO (10-20); Calcium,Total 9.4 mg/dL (7.6-11.0); Carbon Dioxide 22.4 mmol/L (21.0-32.0); Chloride 102 mmol/L (98-108); Creatinine, Serum 0.88 mg/dL (0.70-1.20); Differential Comment SCANNED; EST Glomerular Filtration Rate 85 (>60); Estimated Creatinine Clearance 52.99 ml/min (50-250); Globulin 3.9 g/dL (2.2-4.2); Glucose 80 mg/dL (70-99); Potassium 3.3 mmol/L (3.3-5.1); Protein, Total 7.7 g/dL (5.9-8.4); Sodium Level 138 mmol/L (133-145); Total Bilirubin 0.19 mg/dL (0.00-1.30)
[2024-11-30 23:54] LABS: Bacteria 0 SEEN /hpf (None Seen); Red Blood Cells-Urine 0 SEEN /hpf (0-5); White Blood Cells 0 SEEN /hpf (0-5)
[2024-12-01] VITALS (12 sets, daily range): BP systolic 135–156; BP diastolic 91–128; PULSE 96–124; RESP 16–24; TEMP 36.9–37.4; O2SAT 92–97; BMI 23.1
[2024-12-01 00:03] LABS: Color, Urine Yellow (Yellow); Glucose, Dipstick Normal (Normal); Ketone-Dipstick 15 mg/dl (Negative); Leukocyte Esterase-Dipstick Negative /ul (Negative); Nitrite-Dipstick Negative (Negative); Occult Blood-Urine 150 /ul (Negative); Protein-Dipstick 15 mg/dl (Negative); Urine Bilirubin Dipstick Negative (Negative); Urine Clarity Clear (Clear); Urine Urobilinogen Normal (Normal); Urine pH 6.5 (5.0 - 8.0)
[2024-12-01 00:25] LABS: Squamous Epithelial Cells - UA 0-5 SEEN /hpf (5-10)
[2024-12-01 00:26] LABS: Mucous, Urine RARE /hpf (<or=2+)
--- NOTE | 2024-12-01 01:48 | CT_ITS ---
PROCEDURE: SOFT TISSUE NECK WITH CONTRAST 12/01/2024 REASON FOR EXAM: DYSPHAGIA PAIN TECHNIQUE: CT of the soft tissues of the neck from the orbits to the upper mediastinum with intravenous contrast. CONTRAST: 70 cc Isovue 370 IV One or more dose reduction techniques were used (e.g., Automated exposure control, adjustment of the mA and/or kV according to patient size, use of iterative reconstruction technique). RADIATION DOSE SUMMARY: CTDlvol: 15.20 mGy DLP: 290.78 mGycm FINDINGS: The paranasal sinuses and visualized mastoids are clear. The orbits appear within limits. Symmetric appearing parotids and submandibular glands appear within limits. Incidental note of a tonsillar loop of the right internal carotid artery, anatomic variant. There is significant motion artifact at the level of the epiglottis which limits the evaluation. No evidence of prevertebral edema. Visualized osseous structures appear within limits. CT/Soft Tissue Neck WITH Contrast IMPRESSION: There is significant motion artifact at the level of the epiglottis which limit s the evaluation. No evidence of prevertebral edema. Reading Location: [id number]
--- NOTE | 2024-12-01 01:48 | CT_ITS ---
PROCEDURE: CHEST WITH CONTRAST 12/01/2024 REASON FOR EXAM: PNEUMONIA TECHNIQUE: Prone and supine chest CT with intravenous contrast, high resolution CT (HRCT) protocol. Coronal and Sagittal reconstruction series were provided. CONTRAST: 70 cc Isovue 370 IV One or more dose reduction techniques were used (e.g., Automated exposure control, adjustment of the mA and/or kV according to patient size, use of iterative reconstruction technique). RADIATION DOSE SUMMARY: CTDlvol: 15.20 mGy DLP: 290.78 mGycm FINDINGS: The central airways appear patent. Mild appearing atelectasis at the lingula and left lower lobe. Mild patchy areas of ground-glass opacity at the left base may be inflammatory or infectious. Small area of atelectasis or scar at the right middle lobe. The right lung is otherwise clear. No large central saddle pulmonary embolism. Thoracic aorta and visualized great vessels appear within limits. No axillary, mediastinal, hilar or subcarinal adenopathy. No pericardial or pleural effusion. Limited images upper abdomen with partially imaged hepatic steatosis. Visualized osseous structures appear within limits. CT/Chest WITH Contrast IMPRESSION: Mild appearing atelectasis at the lingula and left lower lobe. Mild patchy areas of ground-glass opacity at the left base may be inflammatory or infectious. Small area of atelectasis or scar at the right middle lobe. Reading Location: [id number]
--- NOTE | 2024-12-01 02:47 | PCM.HP.STD ---
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 intake, fever and malaise at home. Her parents give all the history as she is nonverbal at baseline. They report that symptoms began on Friday. She is typically on a pur?ed thin liquid diet which she had been tolerating well but her p.o. intake is decreased since Friday. They are concerned that she is dehydrated. She is still having wet adult diapers and her last bowel movement was yesterday. Her bowels have been normal. She has had no sick contacts. Her mom does report that she is having some aspiration issues over the last year. She has had 2 modified barium swallows here. They state that she does intermittently cough after eating so they were concerned that she could potentially have aspiration pneumonia. She has had low-grade fevers at home. Her functional status at baseline is limited to walking brief distances with assistance and stands for short period of time with assistance. Vital signs in the emergency department showed a temperature of 98.9, heart rate 118, respiratory rate 17, blood pressure initially 185/102 with a repeat of 145/123, pulse ox is 95% on room air. Tmax was 99 in the emergency department. CBC showed a normal white count with no left shift. She did have a significant monocytosis with a 17.4% monocyte count. Coags were normal. Chemistry panel showed a slightly elevated BUN and serum creatinine from baseline consistent with mild dehydration. Lactic acid was normal at 1.1. Her UA was unremarkable. Chest x-ray is unremarkable. CT of her chest was done looking for pulmonary abnormality with a negative chest x-ray and showed mild appearing atelectatic changes in the lung and left lower lobe with mild patchy areas of groundglass and a small area of atelectasis or scarring in the right middle lobe. CTA of her neck was done to check her dentition and she does have overall poor dentition. There was significant motion artifact but no evidence of any abnormalities. Given her decreased p.o. intake and dehydration along with suspected source of infection with undiagnosed source request for admission was made. [facility] Medical History (Updated 12/01/24 @ 03:[address] Ce Nicholson DO) Dysphagia Scoliosis History of osteoporosis GERD (gastroesophageal reflux disease) Seizure disorder Rett syndrome Home Medications ?Medication ?Instructions ?Recorded ?Last Taken ?Type baclofen 10 mg tablet 5 mg PO DAILY 03/15/23 Unknown History carbamazepine 100 mg chewable 200 mg PO Q12H 03/15/23 Unknown History tablet clonazepam 0.5 mg disintegrating 0.5 mg translingual PRN SEIZURE 03/15/23 Unknown History tablet divalproex 250 mg tablet,delayed 1,000 mg PO Q12H 03/15/23 Unknown History release docusate sodium 100 mg capsule 200 mg PO BID 03/15/23 Unknown History (Col-Rite) glycerin (laxative) 2.8 gram/2.7 2.8 g MD QODAY 03/15/23 Unknown History mL rectal solution (Pedia-Lax) topiramate 100 mg tablet 150 mg PO Q12H 03/15/23 Unknown History denosumab 60 mg/mL subcutaneous 60 mg subcut [id number] 07/31/23 Unknown History syringe (Prolia) cholecalciferol (vitamin D3) 25 25 mcg PO DAILY 11/30/24 Unknown History mcg (1,000 unit) capsule (Vitamin D3) esomeprazole magnesium 20 mg 40 mg PO DAILY 11/30/24 Unknown History capsule,delayed release (Acid Director Technical (esomeprazole)) ferrous sulfate 300 mg (60 mg 300 mg PO QODAY 11/30/24 Unknown History iron)/5 mL oral liquid trofinetide 200 mg/mL oral 6,000 mg PO BID 11/30/24 Unknown History solution (Daybue) Allergy/AdvReac Type Severity Reaction Status Date / Time diazepam (From Valium) Allergy Other Verified 11/30/24 21:10 morphine Allergy Other Verified 11/30/24 21:10 Penicillins Allergy Rash Verified 11/30/24 21:10 Surgical History History of ankle surgery Social History current occupational status: disabled Smoking Status: Never smoker alcohol intake: never substance use type: does not use do you feel safe at home: Yes additional social history: Rett Syndrome, Wheel chair bound ROS ROS Narrative Unable to obtain Review of Systems ROS Unobtainable: other Details: Patient is nonverbal at baseline Vital Signs Vital Signs Vital Signs: 11/30/24 21:10 11/30/24 21:10 11/30/24 21:37 Temperature 98.9 F 98.9 F Temperature Source Temporal Temporal Pulse Rate 118 H 118 H Respiratory Rate 17 17 Respiratory Effort Normal Blood Pressure 185/102 H 185/102 H Blood Pressure Mean 129 129 Pulse Ox 95 95 Oxygen Delivery Method Room Air 11/30/24 22:14 11/30/24 23:00 12/01/24 00:00 Temperature 99 F 99 F 98.9 F Temperature Source Axillary Axillary Axillary Pulse Rate 94 100 96 Respiratory Rate 20 H 14 16 Respiratory Effort Blood Pressure 172/114 H 145/123 H 150/100 H Blood Pressure Mean 133 130 114 Pulse Ox 96 97 97 Oxygen Delivery Method Room Air 12/01/24 01:00 Temperature 98.9 F Temperature Source Temporal Pulse Rate 99 Respiratory Rate 24 H Respiratory Effort Blood Pressure 150/95 H Blood Pressure Mean 113 Pulse Ox 92 Oxygen Delivery Method Room Air Weight Weight: 39.5 kg Body Mass Index (BMI) 22.6 Physical Exam Const alert and well nourished; Negative for average body habitus Constitutional Narrative: Ill-appearing but not toxic middle-aged white female with notable congenital abnormalities General Appearance: cooperative HEENT normocephalic and head/scalp atraumatic; Negative for dentition normal HEENT Narrative: Dentition is poor, Mallampati is 3, no thrush Eyes PERRL, EOMs intact bilaterally and conjunctivae normal Eyes Narrative: No scleral icterus Neck supple Neck Narrative: Trachea midline, no notable lymphadenopathy Resp normal respiratory effort, no retractions, no use of accessory muscles and clear to auscultation bilaterally Resp Narrative: Diminished at bases bilaterally Auscultation: Negative for rales, rhonchi or wheezes Cardio regular rhythm, S1 normal heart sound, S2 normal heart sound, no murmurs, no rub, no gallops and no clicks Cardio Narrative: Tachycardic GI normal to inspection, nondistended, normoactive bowel sounds, soft to palpation, non-tender and non-distended Extremity no clubbing, cyanosis or edema Extremity Narrative: Decreased lean muscle mass, 2+ radial and pedal pulses Skin skin turgor normal, no jaundice, no petechiae and no mottling Neuro Neuro Narrative: Bilateral upper extremities are flexed and toward the chest, feet with some plantarflexion contractures Speech: Negative for speech normal Psych Psych Narrative: Calm but appears mildly anxious, patient is nonverbal so difficult to assess Results Lab / Micro Data 11/30/24 22:17 11/30/24 22:17 Labs: Laboratory Results - last 24 hr 11/30/24 22:17: WBC 9.7, RBC 3.60 L, Hgb 12.4, Hct 37.9, MCV 105.3 H, MCH 34.4 H, MCHC 32.7, RDW Std Deviation 60.0 H, RDW Coeff of Chayo 15.4 H, Plt Count 182, MPV 10.4, Immature Gran % (Auto) 0.500, Neut % (Auto) 61.6, Lymph % (Auto) 19.9, [place] % (Auto) 17.4 H, Eos % (Auto) 0.4, Baso % (Auto) 0.2, Absolute Neuts (auto) 6.0, Absolute Lymphs (auto) 1.93, Nucleated RBC % 1.1, Differential Comment SCANNED, PT 13.5, INR 1.0, APTT 36.1, Sodium 138, Potassium 3.3, Chloride 102, Carbon Dioxide 22.4, Anion Gap 14, BUN 21 H, Creatinine 0.88, Estim Creat Clear Calc 52.99, Est GFR (MDRD) Non-Af 85, BUN/Creatinine Ratio 23.4 H, Glucose 80, Lactic Acid 1.1, Calcium 9.4, Total Bilirubin 0.19, AST 31, ALT 14, Alkaline Phosphatase 109 H, Total Protein 7.7, Albumin 3.7, Globulin 3.9, Albumin/Globulin Ratio 1.0 11/30/24 23:48: Urine Color Yellow, Urine Clarity Clear, Urine pH 6.5, Ur Specific [place] 1.010, Urine Protein 15 H, Urine Glucose (UA) Normal, Urine Ketones 15 H, Urine Occult Blood 150 H, Urine Nitrite Negative, Urine Bilirubin Negative, Urine Urobilinogen Normal, Ur Leukocyte Esterase Negative, Urine RBC 0 SEEN, Urine WBC 0 SEEN, Ur Squamous Epith Cells 0-5 SEEN, Urine Bacteria 0 SEEN, Urine Mucus RARE Micro: Microbiology 11/30/24 22:08 Mucosa - Nasopharyngeal SARS-CoV-2, Influenza & RSV (PCR) - Final Imaging Radiology Impression Chest CT 12/01/24 01:48 IMPRESSION: Mild appearing atelectasis at the lingula and left lower lobe. Mild patchy areas of ground-glass opacity at the left base may be inflammatory or infectious. Small area of atelectasis or scar at the right middle lobe. Reading Location: [facility] Soft Tissue Neck CT 12/01/24 01:48 IMPRESSION: There is significant motion artifact at the level of the epiglottis which limits the evaluation. No evidence of prevertebral edema. Reading Location: [facility] Assessment & Plan Assessment/Plan (1) Fever of unknown origin: (2) Monocytosis: (3) Dehydration: (4) Tachycardia: PLAN: Plan Fever of unknown origin - Patient nonverbal at baseline so difficult to ascertain a history - Check sed rate and CRP - Check procalcitonin - UA is not consistent with infection but urine culture is sent and pending - Blood cultures are pending - Start Levaquin empirically as patient has penicillin allergy - COVID/flu/RSV negative - Check respiratory viral panel - CT of the chest is overtly unrevealing for source - Check CT of the abdomen and pelvis - As needed Tylenol for fever - Speech therapy consult with history of dysphagia Tachycardia - Suspect reactive due to the above - Likely physiologic - Monitor Acute dehydration - BMP shows elevated BUN and creatinine from baseline but does not qualify for PRADEEP - Aggressive IV fluids with LR - Trend serum creatinine - Avoid nephrotoxins as able History of dysphagia - Will continue with home pur?e thin liquid diet - Has had previous modified barium swallows here within the last year - Speech therapy consult Leukocytosis - Appears to be acute on chronic - COVID/flu/RSV is negative - Respiratory viral panel pending - Repeat lab in a.m. 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
[2024-12-01] MEDS: 0.9% Normal Saline (1000mL) 1,000 ML 150 ML IV (03:06)
[2024-12-01 03:26] LABS: Procalcitonin 0.26 ng/mL (<=0.10)
[2024-12-01 03:54] LABS: Erythrocyte Sedimentation Rate 58 mm/hr (0-30)
--- NOTE | 2024-12-01 03:55 | CT_ITS ---
PROCEDURE: ABDOMEN/PELVIS W IV CONT ONLY 12/01/2024 REASON FOR EXAM: FUO WITH ELEVATED CRP TECHNIQUE: Abdomen and pelvis CT with intravenous contrast. Coronal and Sagittal reconstruction series were provided. PATIENT PREPARATION: Per protocol ORAL CONTRAST TYPE: None. CONTRAST: 59 cc Isovue 370 IV One or more dose reduction techniques were used (e.g., Automated exposure control, adjustment of the mA and/or kV according to patient size, use of iterative reconstruction technique. RADIATION DOSE SUMMARY: CTDlvol: 9.27 mGy DLP: 412.30 mGycm COMPARISON: 03/15/2023 FINDINGS: Left base atelectasis with small patchy areas of ground-glass opacity at the left posterior recess may be inflammatory or infectious. 1.5 cm low-density focus right lobe of the liver axial 22 previously faintly suggested although limited by motion, possible hepatic cyst. The liver otherwise appears within limits. The adrenal glands, gallbladder, pancreas and spleen appear within limits. The right kidney appears within limits and contains a small renal cyst. Suggestion of a mildly striated left renal nephrogram concerning for possible pyelonephritis. Mild asymmetric increased left more than right perinephric and peripelvic stranding which may be inflammatory/infectious. Mild asymmetrically delayed left kidney excretory phase compared to the right. Excreted contrast is seen throughout the right ureter and in the bladder. Mild prominence of the left ureter with urothelial thickening and adjacent stranding. 2 adjacent cysts within the left ovary measuring up to 4.5 cm. Small amount of fluid in the upper vaginal vault. Hill within a collapsed bladder. Abdominal aorta appears within limits. No bowel dilation or free air. Normal caliber appendix without secondary signs. No free fluid. Spinal curvature. CT/Abdomen/Pelvis W IV Cont ONLY IMPRESSION: Findings are most concerning for left pyelonephritis and urinary tract infectio n without hydronephrosis as detailed above. Cysts are now seen in the left ovary measuring up to 4.5 cm. Small amount of f luid in the upper vaginal vault. Hill within a collapsed bladder. Left base atelectasis and mild patchy ground-glass opacity may represent atelec tasis with inflammatory/infectious process not excluded. Reading Location: [id number]
[2024-12-01] MEDS: levoFLOXacin IV 750 MG/150 ML BAG 100 MG IV ×2 (04:39→21:16)
[2024-12-01] MEDS: Lactated Ringers 1,000 ML 100 ML IV ×2 (06:25→16:12)
--- NOTE | 2024-12-01 07:21 | PCM.PN.HOSP ---
Reason for Visit Reason for Visit: Diagnoses Monocytosis (symptomatic) (12/01/24) Dehydration (12/01/24) Tachycardia, unspecified (12/01/24) Fever, unspecified (12/01/24) Subjective Subjective DW patient's parents at bedside. Pt non-verbal at baseline. Objective Data Objective Data Vital Signs: Vital Signs Temp Pulse Resp BP Pulse Ox O2 Del Method 37.4 C H 105 H 20 H 146/100 H 96 Room Air 12/01/24 04:30 12/01/24 04:30 12/01/24 04:45 12/01/24 04:30 12/01/24 04:30 12/01/24 05:39 Oxygen Delivery Method Room Air Weight: 40.3 kg Body Mass Index (BMI) 23.1 Intake & Output: Intake and Output for Last 24 Hours 11/29/24 11/30/24 12/01/24 23:59 23:59 23:59 Intake Total 1000 / 1000 830 / 830 Output Total 600 / 600 Balance 1000 / 1000 230 / 230 Lab / Micro Data 12/01/24 07:01 12/01/24 07:01 Labs: Laboratory Results - last 24 hr 11/30/24 22:17: WBC 9.7, RBC 3.60 L, Hgb 12.4, Hct 37.9, MCV 105.3 H, MCH 34.4 H, MCHC 32.7, RDW Std Deviation 60.0 H, RDW Coeff of Chayo 15.4 H, Plt Count 182, MPV 10.4, Immature Gran % (Auto) 0.500, Neut % (Auto) 61.6, Lymph % (Auto) 19.9, [place] % (Auto) 17.4 H, Eos % (Auto) 0.4, Baso % (Auto) 0.2, Absolute Neuts (auto) 6.0, Absolute Lymphs (auto) 1.93, Nucleated RBC % 1.1, Differential Comment SCANNED, ESR 58 H, PT 13.5, INR 1.0, APTT 36.1, Sodium 138, Potassium 3.3, Chloride 102, Carbon Dioxide 22.4, Anion Gap 14, BUN 21 H, Creatinine 0.88, Estim Creat Clear Calc 52.99, Est GFR (MDRD) Non-Af 85, BUN/Creatinine Ratio 23.4 H, Glucose 80, Lactic Acid 1.1, Calcium 9.4, Total Bilirubin 0.19, AST 31, ALT 14, Alkaline Phosphatase 109 H, C-React Prot Ext Range 348.00 H, Total Protein 7.7, Albumin 3.7, Globulin 3.9, Albumin/Globulin Ratio 1.0, Procalcitonin 0.26 H 11/30/24 23:48: Urine Color Yellow, Urine Clarity Clear, Urine pH 6.5, Ur Specific [place] 1.010, Urine Protein 15 H, Urine Glucose (UA) Normal, Urine Ketones 15 H, Urine Occult Blood 150 H, Urine Nitrite Negative, Urine Bilirubin Negative, Urine Urobilinogen Normal, Ur Leukocyte Esterase Negative, Urine RBC 0 SEEN, Urine WBC 0 SEEN, Ur Squamous Epith Cells 0-5 SEEN, Urine Bacteria 0 SEEN, Urine Mucus RARE Micro: Microbiology 11/30/24 22:08 Mucosa - Nasopharyngeal SARS-CoV-2, Influenza & RSV (PCR) - Final Radiography Diagnostic Testing: Radiology Impression Chest CT 12/01/24 01:48 IMPRESSION: Mild appearing atelectasis at the lingula and left lower lobe. Mild patchy areas of ground-glass opacity at the left base may be inflammatory or infectious. Small area of atelectasis or scar at the right middle lobe. Reading Location: [facility] Soft Tissue Neck CT 12/01/24 01:48 IMPRESSION: There is significant motion artifact at the level of the epiglottis which limits the evaluation. No evidence of prevertebral edema. Reading Location: [facility] Abdomen/Pelvis CT 12/01/24 03:55 IMPRESSION: Findings are most concerning for left pyelonephritis and urinary tract infection without hydronephrosis as detailed above. Cysts are now seen in the left ovary measuring up to 4.5 cm. Small amount of fluid in the upper vaginal vault. Hill within a collapsed bladder. Left base atelectasis and mild patchy ground-glass opacity may represent atelectasis with inflammatory/infectious process not excluded. Reading Location: [facility] Physical Exam Const alert and no apparent distress Constitutional Narrative: awake. non-verbal. afebrile. HEENT HEENT Narrative: microcephaly. Resp normal respiratory effort, no retractions, no use of accessory muscles and clear to auscultation bilaterally Cardio regular rate, regular rhythm, S1 normal heart sound and S2 normal heart sound GI normal to inspection, nondistended, normoactive bowel sounds, soft to palpation, non-tender and non-distended Assessment & Plan Assessment/Plan (1) Sepsis: PLAN: POA. 2/4 SIRS with tachycardia and tachynpnea (see admission vitals for details). Pyelonephritis v pneumonia. CT A/P showed left pyelonephritis (but UA was unremarkable). CT chest showed patchy area LLL. COVID-19/Influenza/RSV negative. Resp panel negative. Follow up cultures. Check strep and legionella antigens, Sputum culture (if able) Continue levofloxacin. PLAN: Plan Nelson syndrome: complicates care and recovery Dysphagia: pureed diet. ST following. Unable to crush some of her AEDs, but other meds to be crushed. SZR d/o: continue AEDs VTE prophylaxis: LMWH. DW patient's parents at bedside. Charges/Coding Visit Charges Inpatient E&M: 20022 Subs Hosp L2
[2024-12-01 07:35] LABS: Absolute Lymphocyte Count 0.85 X10^3/uL (0.83-4.51); Absolute Neutrophil Count 5.9 X10^3/uL (2.0-7.7); Basophil# 0.02 X10^3/uL; Basophil% 0.2 % (0-1); Eosinophil# 0.02 X10^3/uL; Eosinophils% 0.2 % (0-5); Hematocrit 36.1 % (37-47); Hemoglobin 11.8 g/dL (12.0-15.0); Lymphocyte # 0.85 X10^3/ul (0.83-4.51); Mean Corp Hgb Conc 32.7 g/dL (32-36); Mean Corpuscular Hgb 34.3 pg (27.0-32.0); Mean Corpuscular Volume 104.9 fL (81-99); Mean Platelet Vol. 10.4 fl (6.2-12.0); Monocyte# 1.67 X10^3/uL; Monocyte% 19.6 % (0-10); NRBC Flagged by Analyzer 1.1 % (0-5); Neutrophil # 5.85 X10^3/uL (2.7-7.7); Neutrophil % 68.7 % (47-70); POSITIVE DIFFERENTIAL YES; Platelet Count 178 K/mm3 (150-450); RBC Distribution Width CV 15.6 % (11.6-14.6); RBC Distribution Width SD 59.8 fl (35.1-43.9); Red Blood Count 3.44 M/mm3 (4.2-5.4); White Blood Count 8.5 K/mm3 (4.4-11.0)
[2024-12-01 07:40] LABS: Differential Indicated SCAN CRITERIA MET
--- NOTE | 2024-12-01 08:17 | NURSING ---
pt is currently NPO until seen by speech
[2024-12-01 08:23] LABS: ALB/GLOB Ratio 0.9 RATIO (0.9-2.4); AST(SGOT) 34 U/L (<=31); Alanine Aminotransfer ALT/SGPT 12 U/L (<=34); Alkaline Phosphatase 98 U/L (35-104); Anion Gap 12 (5-15); BUN 15 mg/dL (4-19); BUN/Creat Ratio 20.9 RATIO (10-20); Calcium,Total 8.1 mg/dL (7.6-11.0); Carbon Dioxide 17.2 mmol/L (21.0-32.0); Chloride 105 mmol/L (98-108); Creatinine, Serum 0.72 mg/dL (0.70-1.20); EST Glomerular Filtration Rate 108 (>60); Estimated Creatinine Clearance 66.08 ml/min (50-250); Globulin 3.5 g/dL (2.2-4.2); Glucose 82 mg/dL (70-99); Magnesium 2.3 mg/dL (1.5-2.2); Phosphorus 1.6 mg/dL (2.7-4.5); Potassium 3.2 mmol/L (3.3-5.1); Protein, Total 6.5 g/dL (5.9-8.4); Sodium Level 134 mmol/L (133-145); Total Bilirubin 0.19 mg/dL (0.00-1.30)
[2024-12-01] MEDS: [UNRECOGNIZED DRUG - OTHER] 6000 PO ×2 (09:37→20:40)
[2024-12-01] MEDS: Enoxaparin 30 MG/0.3 ML Syringe SC (09:42)
[2024-12-01] MEDS: Baclofen 10 MG Tablet 5 MG PO (09:44)
--- NOTE | 2024-12-01 09:57 | NURSING ---
pt sleeping soundly
[2024-12-01] MEDS: carBAMazepine 200 MG Tablet PO ×2 (10:35→20:40)
[2024-12-01] MEDS: Divalproex Sodium 250 MG Tablet 1000 MG PO ×2 (10:35→20:39)
[2024-12-01] MEDS: Topiramate 50 MG Tablet 150 MG PO ×2 (10:36→20:39)
--- NOTE | 2024-12-01 15:01 | CASEMGMT ---
Met with patient to complete DENG form. DENG form explained to patient who voiced understanding and signed form. Original form placed in pt?s chart and copy provided to patient. Brenda Major, Discharge Planning Asst
--- NOTE | 2024-12-01 15:36 | CASEMGMT ---
Addendum entered by Maria M Teran 12/01/24 15:44: Pt mother states she does prepare meals using pureed foods currently. Original Note: RN CM into pt room, pt lying in bed with mother at bedside. Pt is nonverbal. Pt motherAlley states that pt is dependent on her parents for all ADL/IADLs. Pt lives in a single story home with 2-3 steps to enter. Pt ambulates with parents assistance. Pt has an electric lift for bathing but does not like to use it. Pt also has an adapted chair for the kitchen table, w/c for when she goes to [employer] [facility] [employer]. Pt attends [employer] 5 days per week from 9a-2:30pm. Pt parents administers all medications. Pt has had ST in the past at [facility]. Discussed with mother having therapy again and she would like to think about this. She states she does not want her dtr on purees for the rest of her life. Pt mother has been working with the the vice president consulting services at to see about additional help in the home. She states she was given agencies and they are researching them but is hesitant to have people in their home. 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 Pt mother denies any homegoing needs.
[2024-12-01] MEDS: Glycerin Pediatric 1 Suppository 1 SUPP RC (20:44)
[2024-12-02] VITALS (7 sets, daily range): BP systolic 126–143; BP diastolic 81–90; PULSE 93–107; RESP 16–18; TEMP 36.9–38; O2SAT 93–95; BMI 23.2
[2024-12-02] MEDS: Lactated Ringers 1,000 ML 100 ML IV ×3 (02:50→22:20)
[2024-12-02 05:56] LABS: Absolute Lymphocyte Count 1.47 X10^3/uL (0.83-4.51); Absolute Neutrophil Count 4.6 X10^3/uL (2.0-7.7); Basophil# 0.01 X10^3/uL; Basophil% 0.1 % (0-1); Eosinophil# 0.05 X10^3/uL; Eosinophils% 0.7 % (0-5); Hematocrit 30.7 % (37-47); Hemoglobin 10.2 g/dL (12.0-15.0); Lymphocyte # 1.47 X10^3/ul (0.83-4.51); Lymphocyte % 19.5 % (19-41); Mean Corp Hgb Conc 33.2 g/dL (32-36); Mean Corpuscular Hgb 34.1 pg (27.0-32.0); Mean Corpuscular Volume 102.7 fL (81-99); Mean Platelet Vol. 10.4 fl (6.2-12.0); Monocyte# 1.27 X10^3/uL; Monocyte% 16.9 % (0-10); NRBC Flagged by Analyzer 1.2 % (0-5); Neutrophil # 4.63 X10^3/uL (2.7-7.7); Neutrophil % 61.6 % (47-70); Platelet Count 151 K/mm3 (150-450); RBC Distribution Width CV 15.3 % (11.6-14.6); RBC Distribution Width SD 58.7 fl (35.1-43.9); Red Blood Count 2.99 M/mm3 (4.2-5.4); White Blood Count 7.5 K/mm3 (4.4-11.0)
[2024-12-02 06:58] LABS: Anion Gap 10 (5-15); BUN 13 mg/dL (4-19); BUN/Creat Ratio 17.7 RATIO (10-20); Calcium,Total 8.1 mg/dL (7.6-11.0); Carbon Dioxide 18.9 mmol/L (21.0-32.0); Chloride 106 mmol/L (98-108); Creatinine, Serum 0.71 mg/dL (0.70-1.20); EST Glomerular Filtration Rate 110 (>60); Estimated Creatinine Clearance 67.34 ml/min (50-250); Glucose 77 mg/dL (70-99); Potassium 3.3 mmol/L (3.3-5.1); Sodium Level 135 mmol/L (133-145)
--- NOTE | 2024-12-02 09:35 | CASEMGMT ---
GAIL CHRISTIE NOTE: GAIL CHRISTIE to room. Pt resting in bed, mother @ bedside. Introduced self and role. Inquired about OP ST, as mother had stated to Maria M, GAIL CHRISTIE, yesterday she wanted to think about it. Mother states she has thought about it and has decided she does not want OP ST for pt at this time. She was made aware to ask for CM if she changes her mind while pt is still in the hospital, or to f/u with PCP if she changes her mind about this once pt discharges home. Mother voices understanding. She denies having other discharge needs or concners. Mian MACHADON GAIL CHRISTIE
[2024-12-02] MEDS: Baclofen 10 MG Tablet 5 MG PO (10:26)
[2024-12-02] MEDS: Topiramate 50 MG Tablet 150 MG PO ×2 (10:26→20:18)
[2024-12-02] MEDS: carBAMazepine 200 MG Tablet PO ×2 (10:27→20:19)
[2024-12-02] MEDS: Enoxaparin 30 MG/0.3 ML Syringe SC (10:27)
--- NOTE | 2024-12-02 11:19 | PN_ITS ---
Subjective Subjective Patient seen and examined. Her mother was by her bedside. 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 However patient's mother expresses concern about her refusing to eat. She has not noted patient having any nausea or vomiting but she says patient pushes away food when it helps with mild she thinks she may have some nausea. Patient does feel warm to touch and according to her nurse the temperature was 99 Fahrenheit this morning. She is on room air. Review of systems otherwise negative. Objective Data Objective Data Vital Signs: Vital Signs Temp Pulse Resp BP Pulse Ox O2 Del Method 99 F 107 H 18 126/85 H 95 Room Air 12/02/24 08:44 12/02/24 08:44 12/02/24 08:44 12/02/24 08:44 12/02/24 08:44 12/02/24 08:44 Oxygen Delivery Method Room Air Weight: 89 lb 4.595 oz Body Mass Index (BMI) 23.2 Intake & Output: Intake and Output for Last 24 Hours 11/30/24 12/01/24 12/02/24 23:59 23:59 23:59 Intake Total 1000 / 1000 3088.33 / 3088.33 406.67 / 406.67 Output Total 950 / 1200 550 / 550 Balance 1000 / 1000 2138.33 / 1888.33 -143.33 / -143.33 Lab / Micro Data 12/02/24 05:39 12/02/24 05:39 Labs: Laboratory Results - last 24 hr 12/02/24 05:39: WBC 7.5, RBC 2.99 L, Hgb 10.2 L, Hct 30.7 L, MCV 102.7 H, MCH 34.1 H, MCHC 33.2, RDW Std Deviation 58.7 H, RDW Coeff of Chayo 15.3 H, Plt Count 151, MPV 10.4, Immature Gran % (Auto) 1.200 H, Neut % (Auto) 61.6, Lymph % (Auto) 19.5, [place] % (Auto) 16.9 H, Eos % (Auto) 0.7, Baso % (Auto) 0.1, Absolute Neuts (auto) 4.6, Absolute Lymphs (auto) 1.47, Nucleated RBC % 1.2, Sodium 135, Potassium 3.3, Chloride 106, Carbon Dioxide 18.9 L, Anion Gap 10, BUN 13, Creatinine 0.71, Estim Creat Clear Calc 67.34, Est GFR (MDRD) Non-Af 110, BUN/Creatinine Ratio 17.7, Glucose 77, Calcium 8.1 Micro: Microbiology 11/30/24 23:48 Urine, Catheterized Urine Culture - Preliminary Gram negative gabino 12/01/24 13:20 Urine Catheter - Catheter Streptococcus pneumoniae Antigen (M - Final 12/01/24 13:20 Urine Catheter - Hill Legionella Antigen - Final 12/01/24 05:25 Mucosa - Nasopharyngeal Respiratory Panel (PCR) - Final 11/30/24 22:08 Mucosa - Nasopharyngeal SARS-CoV-2, Influenza & RSV (PCR) - Final Physical Exam Const alert Constitutional Narrative: Nonverbal. Has underlying Nelson's syndrome HEENT normocephalic, head/scalp atraumatic, moist oral mucous membranes and oropharynx normal Eyes PERRL and EOMs intact bilaterally Neck no lymphadenopathy and supple Lymph Lymphatic: no lymphadenopathy noted Resp Resp Narrative: mildly diminished breath sounds bibasally, no wheezes or crackles. On room air Cardio regular rhythm, S1 normal heart sound, S2 normal heart sound and no murmurs Cardio Narrative: Tachycardia GI normal to inspection, nondistended, normoactive bowel sounds, soft to palpation, non-tender and non-distended Extremity normal capillary refill, no clubbing, cyanosis or edema and no calf tenderness General Extremity: no tenderness to palpation of joints or extremities Skin General Skin Exam: no breakdown Neuro Neuro Narrative: moves all extremities, nonverbal. Psych Mood & Affect: flat affect Assessment & Plan Assessment/Plan (1) Pyelonephritis: (2) Sepsis: (3) Tachycardia: (4) Dehydration: PLAN: Plan #Sepsis due to left pyelonephritis and probable pneumonia * Patient still has a low-grade fever and tachycardia this morning. * CT abdomen and pelvis showed left pyelonephritis. CT chest showed infiltrate in the left lower lobe * covid, influenza and RSV. Sputum cultures negative. * Urine for strep and legionella negative * on IV levofloxacin. Will broaden antibiotics to IV cefepime. * Blood cultures also positive for gram-positive cocci. Will start on IV vancomycin also and get 2D echo. Consult infectious disease. * * #Gram positive bacteremia: as above #Dysphagia: on pureed diet. speech therapy on board #History of seizure disorder: on depakote. Will switch to IV depakote due to patient refusing oral meds. #History of Nelson syndrome: patient nonverbal. Stable #Hypophosphatemia: phosporous level low at 1.6. Will replace and trend. DVT prophylaxis: lovenox Charges/Coding Visit Charges Inpatient E&M: 27764 Subs Hosp L2
--- NOTE | 2024-12-02 11:43 | ECHOD_ITS ---
Reason For Study Reason For Study: Endocarditis Procedure This was a 2D Doppler, Color Flow transthoracic echocardiogram. The study was technically difficult. Exam performed portable in patient room. Left Ventricle Normal LV size. The estimated ejection fraction is 60 %. No evidence for diastolic dysfunction. No regional wall motion abnormalities noted. Right Ventricle Normal RV size. Normal systolic function. Atria The left and right atria are normal. No doppler evidence for ASD. Mitral Valve There is no mitral valve stenosis. No mitral valve insufficiency. Tricuspid Valve There is no tricuspid stenosis. Unable to estimate RV systolic pressure due to inadequate jet, pulmonary artery pressure probably normal. Aortic Valve Trisinus/trileaflet aortic valve. There is no aortic stenosis. No aortic valve insufficiency. Pulmonic Valve There is no pulmonic valvular stenosis. No pulmonic valve insufficiency. Great Vessels Normal sized aortic root. Pericardium/Pleural No pericardial effusion. MMode/2D Measurements & Calculations LVIDd: 3.1 cm IVSd: 0.83 cm Ao root diam: 2.4 cm LVIDs: 1.9 cm LVPWd: 0.86 cm FS: 37.4 % LAV(MOD-bp): 12.2 ml LA A4 area: 8.0 cm2 LA dimension(2D): 2.6 cm LAV(MOD-bp) Indexed: 10.4 ml/m2 LAV(MOD-sp2): 9.4 ml LAV(MOD-sp4): 15.3 ml TAPSE: 1.5 cm Time Measurements MV dec time: 0.15 sec Doppler Measurements & Calculations MV E max bronson: 91.7 cm/sec Lat Peak E' Bronson: 12.6 cm/sec Med Peak E' Bronson: 9.4 cm/sec MV A max bronson: 97.6 cm/sec E/E' lat: 7.3 E/E' med: 9.8 MV E/A: 0.94 MV V2 max: 114.5 cm/sec MV P1/2t max bronson: 109.7 cm/sec Ao V2 max: 124.9 cm/sec MV max P.2 mmHg MV P1/2t: 47.3 msec Ao max P.2 mmHg MV V2 mean: 77.3 cm/sec MV mean P.8 mmHg MV dec slope: 678.8 cm/sec2 MV V2 VTI: 17.4 cm MVA(P1/2t): 4.6 cm2 LV V1 max: 111.0 cm/sec LV V1 max P.9 mmHg ECHO/Echo Complete Interpretation Summary The estimated ejection fraction is 60 %. No evidence for diastolic dysfunction. No vegetations noted Ordering Physician: Shyanne Sarkar Performed By: Driss Londono RCS
[2024-12-02] MEDS: Valproate Sodium 500 MG in Dextrose 5%-Water (50mL Bag) 50 ML 50 MG IV ×3 (12:18→23:38)
[2024-12-02] MEDS: [UNRECOGNIZED DRUG - OTHER] 6000 PO ×2 (12:21→20:19)
[2024-12-02] MEDS: Vancomycin IV 1,000 MG/200 ML BAG 200 MG IV (13:54)
--- NOTE | 2024-12-02 14:05 | PCM.RX.CS ---
Consult Antibiotic Management Pharmacy has been consulted to manage selected antibiotic: Vancomycin Type of Intervention Type of Consult: New start Labs Labs: Sodium 135 mmol/L (133-145) 12/02/24 05:39 Potassium 3.3 mmol/L (3.3-5.1) 12/02/24 05:39 Chloride 106 mmol/L (98-108) 12/02/24 05:39 Carbon Dioxide 18.9 mmol/L (21.0-32.0) L 12/02/24 05:39 Anion Gap 10 (5-15) 12/02/24 05:39 BUN 13 mg/dL (4-19) 12/02/24 05:39 Creatinine 0.71 mg/dL (0.70-1.20) 12/02/24 05:39 Est GFR (MDRD) Non-Af 110 (>60) 12/02/24 05:39 BUN/Creatinine Ratio 17.7 RATIO (10-20) 12/02/24 05:39 Glucose 77 mg/dL (70-99) 12/02/24 05:39 Microbiology Microbiology: Microbiology 11/30/24 22:17 Blood Culture (Wb) - Arm Left Blood Culture - Preliminary 11/30/24 23:48 Urine, Catheterized Urine Culture - Preliminary Gram negative gabino 12/01/24 13:20 Urine Catheter - Catheter Streptococcus pneumoniae Antigen (M - Final 12/01/24 13:20 Urine Catheter - Hill Legionella Antigen - Final 12/01/24 05:25 Mucosa - Nasopharyngeal Respiratory Panel (PCR) - Final 11/30/24 22:08 Mucosa - Nasopharyngeal SARS-CoV-2, Influenza & RSV (PCR) - Final Dosing Weight Weight used for dosin.5 kg Estimated Creatinine Clearance Estimated Creatinine Clearance: 67.34 Goal Trough Goal Trough: 15-20 mcg/mL Pharmacy Plan for Drug Dosing Pharmacy Plan for Drug Dosing: NEW START IV VANCOMYCIN Consulting Physician: Mello Indication: Suspected Pneumonia Goal Trough: 15-20 SrCr: 0.71 CrCl: 67.34 Comments: Patient received loading dose at 1353 on 12/02/2024. Vancomycin Dose: per weight (40.5 kg) and CrCl of 67.34 ml/min, 500 MG Q12H Pending Level: 12/04/2024 @0130 Pharmacy Service will continue to monitor and adjust dosing as required.
[2024-12-02] MEDS: Acetaminophen 650 MG Suppository RC (14:40)
[2024-12-02] MEDS: Cefepime HCl 1 GM in 0.9% Normal Saline (50mL MB+) 50 ML IV ×2 (16:08→21:38)
[2024-12-03 02:15] VITALS: BP 139/93; PULSE 100; RESP 16; TEMP 37.4; O2SAT 94
[2024-12-03] MEDS: Vancomycin IV 500 MG/100 ML BAG 100 MG IV (03:08)
[2024-12-03] MEDS: Acetaminophen 650 MG Suppository RC ×3 (04:48→21:27)
[2024-12-03 05:07] LABS: Absolute Lymphocyte Count 1.58 X10^3/uL (0.83-4.51); Basophil# 0.04 X10^3/uL; Basophil% 0.4 % (0-1); Eosinophil# 0.08 X10^3/uL; Eosinophils% 0.8 % (0-5); Hematocrit 30.5 % (37-47); Hemoglobin 10.3 g/dL (12.0-15.0); Lymphocyte # 1.58 X10^3/ul (0.83-4.51); Lymphocyte % 16.6 % (19-41); Mean Corp Hgb Conc 33.8 g/dL (32-36); Mean Corpuscular Hgb 34.4 pg (27.0-32.0); Mean Platelet Vol. 10.5 fl (6.2-12.0); Monocyte# 1.62 X10^3/uL; NRBC Flagged by Analyzer 1.5 % (0-5); Neutrophil # 6.02 X10^3/uL (2.7-7.7); Neutrophil % 63.1 % (47-70); POSITIVE DIFFERENTIAL YES; Platelet Count 173 K/mm3 (150-450); RBC Distribution Width CV 15.4 % (11.6-14.6); RBC Distribution Width SD 57.4 fl (35.1-43.9); Red Blood Count 2.99 M/mm3 (4.2-5.4); White Blood Count 9.5 K/mm3 (4.4-11.0)
[2024-12-03 05:12] LABS: Differential Indicated SCAN CRITERIA MET
[2024-12-03] MEDS: Cefepime HCl 1 GM in 0.9% Normal Saline (50mL MB+) 50 ML IV (05:14)
[2024-12-03 05:48] LABS: Anion Gap 10 (5-15); BUN 9 mg/dL (4-19); BUN/Creat Ratio 14.6 RATIO (10-20); Calcium,Total 8.3 mg/dL (7.6-11.0); Carbon Dioxide 18.3 mmol/L (21.0-32.0); Chloride 107 mmol/L (98-108); Creatinine, Serum 0.62 mg/dL (0.70-1.20); EST Glomerular Filtration Rate 115 (>60); Estimated Creatinine Clearance 77.12 ml/min (50-250); Glucose 98 mg/dL (70-99); Potassium 3.4 mmol/L (3.3-5.1); Sodium Level 135 mmol/L (133-145)
[2024-12-03] MEDS: Valproate Sodium 500 MG in Dextrose 5%-Water (50mL Bag) 50 ML 50 MG IV ×3 (05:59→17:20)
[2024-12-03 06:00] VITALS: BMI 24.1
[2024-12-03 06:14] LABS: Differential Comment SCANNED
[2024-12-03] MEDS: Lactated Ringers 1,000 ML 100 ML IV ×2 (08:20→18:41)
[2024-12-03 08:40] VITALS: BP 120/76; PULSE 89; RESP 18; TEMP 37.4; O2SAT 97
--- NOTE | 2024-12-03 10:35 | PN_ITS ---
Subjective Subjective Patient seen and examined. Her mother was by her bedside. She has fever of 99.3F today. She remains on room air. WBc is 9.5. Blood cultures are growing Staph epidermidis. Mother is concerned about gum swelling. Objective Data Objective Data Vital Signs: Vital Signs Temp Pulse Resp BP Pulse Ox O2 Del Method 99.3 F H 89 18 120/76 97 Room Air 12/03/24 08:40 12/03/24 08:40 12/03/24 08:40 12/03/24 08:40 12/03/24 08:40 12/03/24 08:40 Oxygen Delivery Method Room Air Weight: 92 lb 13.034 oz Body Mass Index (BMI) 24.1 Intake & Output: Intake and Output for Last 24 Hours 12/01/24 12/02/24 12/03/24 23:59 23:59 23:59 Intake Total 3088.33 / 3088.33 2763.34 / 2763.34 1260 / 1260 Output Total 950 / 1200 800 / 1800 1650 / 1650 Balance 2138.33 / 1888.33 1963.34 / 963.34 -390 / -390 Lab / Micro Data 12/03/24 04:31 12/03/24 04:31 Labs: Laboratory Results - last 24 hr 12/03/24 04:31: WBC 9.5, RBC 2.99 L, Hgb 10.3 L, Hct 30.5 L, MCV 102.0 H, MCH 34.4 H, MCHC 33.8, RDW Std Deviation 57.4 H, RDW Coeff of Chayo 15.4 H, Plt Count 173, MPV 10.5, Immature Gran % (Auto) 2.100 H, Neut % (Auto) 63.1, Lymph % (Auto) 16.6 L, [place] % (Auto) 17.0 H, Eos % (Auto) 0.8, Baso % (Auto) 0.4, Absolute Neuts (auto) 6.0, Absolute Lymphs (auto) 1.58, Nucleated RBC % 1.5, Differential Comment SCANNED, Sodium 135, Potassium 3.4, Chloride 107, Carbon Dioxide 18.3 L, Anion Gap 10, BUN 9, Creatinine 0.62 L, Estim Creat Clear Calc 77.12, Est GFR (MDRD) Non-Af 115, BUN/Creatinine Ratio 14.6, Glucose 98, Calcium 8.3 Micro: Microbiology 11/30/24 23:48 Urine, Catheterized Urine Culture - Final Escherichia coli 11/30/24 22:17 Blood Culture (Wb) - Arm Left Bacteria Detection (PCR) - Final Staphylococcus epidermidis 11/30/24 22:17 Blood Culture (Wb) - Arm Left Blood Culture - Preliminary Coag Negative Staph 11/30/24 22:21 Blood Culture (Wb) - Arm Left Blood Culture - Preliminary No growth in 48 hours. 12/01/24 14:11 Sputum, Induced/Lukens Gram Stain - Final 12/01/24 13:20 Urine Catheter - Catheter Streptococcus pneumoniae Antigen (M - Final 12/01/24 13:20 Urine Catheter - Hill Legionella Antigen - Final 12/01/24 05:25 Mucosa - Nasopharyngeal Respiratory Panel (PCR) - Final 11/30/24 22:08 Mucosa - Nasopharyngeal SARS-CoV-2, Influenza & RSV (PCR) - Final Physical Exam Const alert, no apparent distress and well nourished; Negative for average body habitus Constitutional Narrative: Nonverbal. Has underlying Nelson's syndrome General Appearance: cooperative HEENT normocephalic, head/scalp atraumatic, moist oral mucous membranes and oropharynx normal; Negative for dentition normal Eyes PERRL, EOMs intact bilaterally and conjunctivae normal Eyes Narrative: No scleral icterus Neck no lymphadenopathy and supple Neck Narrative: Trachea midline, no notable lymphadenopathy Lymph Lymphatic: no lymphadenopathy noted Resp normal respiratory effort, no retractions, no use of accessory muscles and clear to auscultation bilaterally Resp Narrative: mildly diminished breath sounds bibasally, no wheezes or crackles. On room air Auscultation: Negative for rales, rhonchi or wheezes Cardio regular rate, regular rhythm, S1 normal heart sound, S2 normal heart sound, no murmurs, no rub, no gallops and no clicks Cardio Narrative: Tachycardia GI normal to inspection, nondistended, normoactive bowel sounds, soft to palpation, non-tender and non-distended Extremity normal capillary refill, no clubbing, cyanosis or edema and no calf tenderness Extremity Narrative: Decreased lean muscle mass, 2+ radial and pedal pulses General Extremity: no tenderness to palpation of joints or extremities Skin skin turgor normal, no jaundice, no petechiae and no mottling General Skin Exam: no breakdown Neuro Neuro Narrative: moves all extremities, nonverbal. Speech: Negative for speech normal Psych Psych Narrative: Calm but appears mildly anxious, patient is nonverbal so difficult to assess Mood & Affect: flat affect Assessment & Plan Assessment/Plan (1) Pyelonephritis: (2) Sepsis: (3) Tachycardia: (4) Dehydration: PLAN: Plan #Sepsis due to left pyelonephritis and probable pneumonia * Patient still has a low-grade fever and tachycardia this morning. * CT abdomen and pelvis showed left pyelonephritis. CT chest showed infiltrate in the left lower lobe * covid, influenza and RSV. Sputum cultures negative. * Urine for strep and legionella negative * on IV levofloxacin. Will broaden antibiotics to IV cefepime. * Blood cultures also positive for gram-positive cocci. Will start on IV vancomycin also and get 2D echo. Consult infectious disease. * * #Gram positive bacteremia: as above #Dysphagia: on pureed diet. speech therapy on board #History of seizure disorder: on depakote. Will switch to IV depakote due to patient refusing oral meds. #History of Nelson syndrome: patient nonverbal. Stable #Hypophosphatemia: phosporous level low at 1.6. Will replace and trend. DVT prophylaxis: lovenox
[2024-12-03] MEDS: carBAMazepine 200 MG Tablet PO ×2 (10:46→21:24)
[2024-12-03] MEDS: Baclofen 10 MG Tablet 5 MG PO (10:46)
[2024-12-03] MEDS: Enoxaparin 30 MG/0.3 ML Syringe SC (10:46)
[2024-12-03] MEDS: Topiramate 50 MG Tablet 150 MG PO ×2 (10:46→21:24)
[2024-12-03] MEDS: [UNRECOGNIZED DRUG - OTHER] 6000 PO ×2 (11:01→21:45)
--- NOTE | 2024-12-03 12:40 | PCM.CONS.GEN ---
Assessment & Plan Assessment/Plan (1) Sepsis: PLAN: 1 of 2 bcx with CoNS, consistent with contaminated sample. CT showed pyelo, but ucx with less than 1k ecoli. Concern for ongoing aspiration pneumonia as well. Will stop vanc, narrow to ceftriaxone/flagyl and consult speech for eval. Will follow, thank you (2) Pyelonephritis: HPI Consult Data Date of Consult: 12/03/24 HPI Narrative Reason for Consultation: (+) bcx HPI Narrative: SHON CARNEY, is a 39 F with Rett Syndrome, presented 12/01 to ED with three days fatigue, fever, decreased po intake. Had some increased coughing with po intake recently. Does not have chronic rogers. Mother at bedside denies any recent abd pain, congestion, rash/wound. Came to ED, admitted on levaquin, then changed to vanc/cefepime. Low grade temp last night. Today, more alert and had some po intake for first time in a few days. ROS unobtainable due to mental status PFSH Medical History Dysphagia Scoliosis History of osteoporosis GERD (gastroesophageal reflux disease) Seizure disorder Rett syndrome Home Medications ?Medication ?Instructions ?Recorded ?Last Taken ?Type baclofen 10 mg tablet 5 mg PO DAILY 03/15/23 Unknown History carbamazepine 100 mg chewable 200 mg PO Q12H 03/15/23 Unknown History tablet clonazepam 0.5 mg disintegrating 0.5 mg translingual PRN SEIZURE 03/15/23 Unknown History tablet divalproex 250 mg tablet,delayed 1,000 mg PO Q12H 03/15/23 Unknown History release glycerin (laxative) 2.8 gram/2.7 2.8 g NV QODAY 03/15/23 Unknown History mL rectal solution (Pedia-Lax) topiramate 100 mg tablet 150 mg PO Q12H 03/15/23 Unknown History denosumab 60 mg/mL subcutaneous 60 mg subcut [id number] 07/31/23 Unknown History syringe (Prolia) cholecalciferol (vitamin D3) 25 25 mcg PO DAILY 11/30/24 Unknown History mcg (1,000 unit) capsule (Vitamin D3) esomeprazole magnesium 20 mg 40 mg PO DAILY 11/30/24 Unknown History capsule,delayed release (Acid Director [employer] (esomeprazole)) ferrous sulfate 300 mg (60 mg 300 mg PO QODAY 11/30/24 Unknown History iron)/5 mL oral liquid trofinetide 200 mg/mL oral 6,000 mg PO BID 11/30/24 Unknown History solution (Daybue) Allergy/AdvReac Type Severity Reaction Status Date / Time diazepam (From Valium) Allergy Other Verified 11/30/24 21:10 morphine Allergy Other Verified 11/30/24 21:10 Penicillins Allergy Rash Verified 11/30/24 21:10 Surgical History History of ankle surgery Social History current occupational status: disabled Smoking Status: Never smoker alcohol intake: never substance use type: does not use do you feel safe at home: Yes additional social history: Rett Syndrome, Wheel chair bound Physical Exam Const no apparent distress HEENT normocephalic and head/scalp atraumatic Eyes PERRL and EOMs intact bilaterally Neck supple and No nodes Resp Auscultation: diminished lung sounds Cardio regular rate and regular rhythm GI soft to palpation, non-tender and non-distended Extremity General Extremity: Negative for edema Skin no rashes or lesions noted Neuro Neuro Narrative: eyes open, tracks Lab / Micro Data Attestation: I reviewed the patient's lab results. 12/03/24 04:31 12/03/24 04:31 Labs: Laboratory Results - last 24 hr 12/03/24 04:31: WBC 9.5, RBC 2.99 L, Hgb 10.3 L, Hct 30.5 L, MCV 102.0 H, MCH 34.4 H, MCHC 33.8, RDW Std Deviation 57.4 H, RDW Coeff of Chayo 15.4 H, Plt Count 173, MPV 10.5, Immature Gran % (Auto) 2.100 H, Neut % (Auto) 63.1, Lymph % (Auto) 16.6 L, [place] % (Auto) 17.0 H, Eos % (Auto) 0.8, Baso % (Auto) 0.4, Absolute Neuts (auto) 6.0, Absolute Lymphs (auto) 1.58, Nucleated RBC % 1.5, Differential Comment SCANNED, Sodium 135, Potassium 3.4, Chloride 107, Carbon Dioxide 18.3 L, Anion Gap 10, BUN 9, Creatinine 0.62 L, Estim Creat Clear Calc 77.12, Est GFR (MDRD) Non-Af 115, BUN/Creatinine Ratio 14.6, Glucose 98, Calcium 8.3 Micro: Microbiology 11/30/24 23:48 Urine, Catheterized Urine Culture - Final Escherichia coli 11/30/24 22:17 Blood Culture (Wb) - Arm Left Bacteria Detection (PCR) - Final Staphylococcus epidermidis 11/30/24 22:17 Blood Culture (Wb) - Arm Left Blood Culture - Preliminary Coag Negative Staph 11/30/24 22:21 Blood Culture (Wb) - Arm Left Blood Culture - Preliminary No growth in 48 hours. 12/01/24 14:11 Sputum, Induced/Lukens Gram Stain - Final Imaging Radiology Impression Echocardiogram 12/02/24 11:43 Interpretation Summary The estimated ejection fraction is 60 %. No evidence for diastolic dysfunction. No vegetations noted Ordering Physician: Shyanne Sarkar Performed By: Driss Londono RCS
[2024-12-03] MEDS: Ceftriaxone 2 GM in 0.9% Normal Saline (50mL MB+) 50 ML IV (14:01)
[2024-12-03] MEDS: metroNIDAZOLE 500 MG Tablet PO (14:01)
[2024-12-03 14:42] VITALS: BP 145/97; PULSE 100; RESP 18; TEMP 37.1; O2SAT 96
[2024-12-03] MEDS: metroNIDAZOLE 500 MG/100 ML BAG 100 MG IV ×2 (15:14→21:28)
[2024-12-03 15:33] LABS: Phosphorus 1.5 mg/dL (2.7-4.5)
--- NOTE | 2024-12-03 17:39 | CASEMGMT ---
GAIL CHRISTIE NOTE: GAIL CHRISTIE to room. Pt resting in bed, mom @ bedside. Mom states she is interested in OP ST now and plans to take pt to [facility] again @ dc. She was made aware a script can be provided @ discharge. She voices appreciation. Script prepared and placed on pt's chart, MD to sign, and script to be provided to pt's mom @ dc. Green sheet placed on pt's chart w/these instructions. Mian ESPINOSA RN CM
[2024-12-03 21:30] VITALS: BP 103/79; PULSE 83; RESP 16; TEMP 36.1; O2SAT 90
[2024-12-04] MEDS: Valproate Sodium 500 MG in Dextrose 5%-Water (50mL Bag) 50 ML 50 MG IV ×3 (00:13→12:35)
[2024-12-04 00:30] VITALS: O2SAT 93
[2024-12-04 02:44] VITALS: BP 115/73; PULSE 90; RESP 18; TEMP 36.8; O2SAT 97
[2024-12-04] MEDS: Menthol/Lanolin/Calamine/Znox 113 GM Tube 1 APPLIC TOPICAL ×3 (02:48→22:51)
[2024-12-04] MEDS: Acetaminophen 650 MG Suppository RC ×3 (03:16→22:48)
[2024-12-04 06:05] LABS: Hematocrit 27.9 % (37-47); Hemoglobin 9.3 g/dL (12.0-15.0); Mean Corp Hgb Conc 33.3 g/dL (32-36); Mean Corpuscular Hgb 34.2 pg (27.0-32.0); Mean Corpuscular Volume 102.6 fL (81-99); Mean Platelet Vol. 10.7 fl (6.2-12.0); POSITIVE COUNT YES; POSITIVE MORPHOLOGY YES; Platelet Count 178 K/mm3 (150-450); RBC Distribution Width CV 15.9 % (11.6-14.6); RBC Distribution Width SD 58.9 fl (35.1-43.9); Red Blood Count 2.72 M/mm3 (4.2-5.4)
[2024-12-04] MEDS: metroNIDAZOLE 500 MG/100 ML BAG 100 MG IV ×3 (06:17→22:49)
[2024-12-04 06:26] VITALS: BMI 24.1
[2024-12-04 06:34] LABS: Differential Indicated MANUAL DIFF
[2024-12-04 07:56] LABS: Anion Gap 9 (5-15); BUN 6 mg/dL (4-19); BUN/Creat Ratio 14.4 RATIO (10-20); Calcium,Total 8.1 mg/dL (7.6-11.0); Carbon Dioxide 21.6 mmol/L (21.0-32.0); Chloride 111 mmol/L (98-108); Creatinine, Serum 0.44 mg/dL (0.70-1.20); EST Glomerular Filtration Rate 125 (>60); Estimated Creatinine Clearance 112.82 ml/min (50-250); Glucose 81 mg/dL (70-99); Potassium 2.5 mmol/L (3.3-5.1); Sodium Level 142 mmol/L (133-145)
[2024-12-04 08:09] VITALS: BP 148/92; PULSE 76; RESP 18; TEMP 36.8; O2SAT 97
[2024-12-04] MEDS: Ferrous Sulfate 300 MG/5 ML UDC PO (08:18)
[2024-12-04] MEDS: Baclofen 10 MG Tablet 5 MG PO (08:18)
[2024-12-04 09:25] LABS: Total Cells Counted 100 (MANUAL DIFF)
[2024-12-04 09:26] LABS: Eosinophil 3 % (0-5); Lymphocyte 33 % (19-41); Metamyelocyte 1 % (0-1); Monocyte 10 % (0-10); Myelocyte 3 % (0-0); Neutrophil-Band 2 % (0-5); Neutrophil-Segmented 48 % (47-70); Nucleated Red Bld Cells,Manual 6 % (0-5)
[2024-12-04 09:27] LABS: Atypical Lymphocyte 1+ %; Corrected WBC 6.8 K/mm3 (4.4-11.0); Platelet Estimate A (ADEQ); Polychromasia 1+
[2024-12-04 09:31] LABS: Absolute Neutrophil Count 3.4 X10^3/uL (2.0-7.7)
[2024-12-04 09:32] LABS: Absolute Lymphocyte Count 2.24 X10^3/uL (0.83-4.51); Pathologist Review May foll
[2024-12-04] MEDS: Ceftriaxone 2 GM in 0.9% Normal Saline (50mL MB+) 50 ML IV (09:47)
[2024-12-04] MEDS: 0.9% Saline Lock 10 ML Syringe IV (09:48)
[2024-12-04] MEDS: 0.9% Normal Saline (250mL Bag) 250 ML 15 ML IV (09:49)
[2024-12-04] MEDS: Enoxaparin 30 MG/0.3 ML Syringe SC (09:51)
[2024-12-04] MEDS: carBAMazepine 200 MG Tablet PO ×2 (09:52→22:50)
[2024-12-04] MEDS: Cholecalciferol (VIT D3) 25 MCG TABLET (1,000 UNITS) PO (09:53)
[2024-12-04] MEDS: [UNRECOGNIZED DRUG - OTHER] 6000 PO ×2 (09:53→22:48)
[2024-12-04 10:42] LABS: Magnesium 1.9 mg/dL (1.5-2.2)
[2024-12-04] MEDS: Lactated Ringers 1,000 ML 100 ML IV ×2 (11:27→22:49)
[2024-12-04] MEDS: Potassium Chloride 10mEq/100mL 10 MEQ/100 ML IV.SOLN. 100 MEQ IV BOLUS ×4 (11:28→16:30)
--- NOTE | 2024-12-04 13:01 | PN_ITS ---
Subjective Subjective Patient seen and examined. Her mother was by her bedside. According to mother patient was able to eat more today. She has been hemodynamically stable. Review of systems otherwise negative per discussion with mother. Objective Data Objective Data Vital Signs: Vital Signs Temp Pulse Resp BP Pulse Ox O2 Del Method 98.2 F 76 18 148/92 H 97 Room Air 12/04/24 08:09 12/04/24 08:09 12/04/24 08:09 12/04/24 08:09 12/04/24 08:09 12/04/24 09:28 Oxygen Delivery Method Room Air Weight: 92 lb 11.2 oz Body Mass Index (BMI) 24.1 Intake & Output: Intake and Output for Last 24 Hours 12/02/24 12/03/24 12/04/24 23:59 23:59 23:59 Intake Total 2763.34 / 2763.34 2809.99 / 2809.99 1200.50 / 1200.50 Output Total 800 / 1800 1850 / 3250 1850 / 1850 Balance 1963.34 / 963.34 959.99 / -440.01 -649.50 / -649.50 Lab / Micro Data 12/04/24 05:25 12/04/24 05:25 Labs: Laboratory Results - last 24 hr 12/03/24 04:31: Phosphorus 1.5 L 12/04/24 05:25: WBC BREAD DISTRIBUTOR, Corrected WBC 6.8, RBC 2.72 L, Hgb 9.3 L, Hct 27.9 L, M CV 102.6 H, MCH 34.2 H, MCHC 33.3, RDW Std Deviation 58.9 H, RDW Coeff of Chayo 15.9 H, Plt Count 178, MPV 10.7, Neut % (Auto) Not Reportable, Absolute Neuts (auto) 3.4, Absolute Lymphs (auto) 2.24, Total Counted 100, Neutrophils % (Manual) 48, Band Neutrophils % 2, Lymphocytes % (Manual) 33, Monocytes % (Manual) 10, Eosinophils % (Manual) 3, Metamyelocytes % 1, Myelocytes % 3 H, N ucleated RBCs/100 WBC 6 H, Diff Path Review May foll, Atypical Lymphocytes 1+, Platelet Estimate A, Polychromasia 1+, Sodium 142, Potassium 2.5 L*, Chloride 111 H, Carbon Dioxide 21.6, Anion Gap 9, BUN 6, Creatinine 0.44 L, Estim Creat Clear Calc 112.82, Est GFR (MDRD) Non-Af 125, BUN/Creatinine Ratio 14.4, Glucose 81, Calcium 8.1, Magnesium 1.9 Micro: Microbiology 12/04/24 00:37 Stool Enteric Bacteriology - Final 12/04/24 00:37 Stool Clostridioides difficile (PCR) - Final 11/30/24 22:17 Blood Culture (Wb) - Arm Left Bacteria Detection (PCR) - Final Staphylococcus epidermidis 11/30/24 22:17 Blood Culture (Wb) - Arm Left Blood Culture - Preliminary Coag Negative Staph 12/01/24 14:11 Sputum, Induced/Lukens Gram Stain - Final 12/01/24 14:11 Sputum, Induced/Lukens Respiratory Culture - Final Mixed normal respiratory britany. No Streptococcus pneumoniae, beta-hemolytic Streptococcus or Staphylococcus aureus isolated. 11/30/24 23:48 Urine, Catheterized Urine Culture - Final Escherichia coli 11/30/24 22:21 Blood Culture (Wb) - Arm Left Blood Culture - Preliminary No growth in 48 hours. 12/01/24 13:20 Urine Catheter - Catheter Streptococcus pneumoniae Antigen (M - Final 12/01/24 13:20 Urine Catheter - Hill Legionella Antigen - Final 12/01/24 05:25 Mucosa - Nasopharyngeal Respiratory Panel (PCR) - Final 11/30/24 22:08 Mucosa - Nasopharyngeal SARS-CoV-2, Influenza & RSV (PCR) - Final Physical Exam Const alert and no apparent distress Constitutional Narrative: Nonverbal. Has underlying Nelson's syndrome. Makes inaudible loud sounds. General Appearance: cooperative HEENT normocephalic, head/scalp atraumatic, moist oral mucous membranes and oropharynx normal; Negative for dentition normal Eyes PERRL, EOMs intact bilaterally and conjunctivae normal Eyes Narrative: No scleral icterus Neck no lymphadenopathy and supple Neck Narrative: Trachea midline, no notable lymphadenopathy Lymph Lymphatic: no lymphadenopathy noted Resp Resp Narrative: mildly diminished breath sounds bibasally, no wheezes or crackles. On room air Auscultation: Negative for rales, rhonchi or wheezes Cardio regular rate, regular rhythm, S1 normal heart sound and S2 normal heart sound GI normal to inspection, nondistended, normoactive bowel sounds, soft to palpation, non-tender and non-distended Extremity normal capillary refill, no clubbing, cyanosis or edema and no calf tenderness Extremity Narrative: Decreased lean muscle mass, 2+ radial and pedal pulses General Extremity: no tenderness to palpation of joints or extremities Skin skin turgor normal, no jaundice, no petechiae and no mottling General Skin Exam: no breakdown Neuro Neuro Narrative: moves all extremities, nonverbal. Motor Exam: general weakness Psych Psych Narrative: Calm but appears mildly anxious, patient is nonverbal so difficult to assess Mood & Affect: flat affect Assessment & Plan Assessment/Plan (1) Pyelonephritis: (2) Sepsis: (3) Tachycardia: (4) Dehydration: PLAN: Plan #Sepsis due to left pyelonephritis and probable pneumonia * patient still having a low grade fever * CT abdomen and pelvis showed left pyelonephritis. CT chest showed infiltrate in the left lower lobe * covid, influenza and RSV. Sputum cultures negative. * Urine for strep and legionella negative * Blood cultures growing Stap epidermidis in 1/2 samples * 2D echo showed EF of 60% with no vegetations noted and no evidence of diastolic dysfunction. * ID on board: ID thinks that the Staph epidermidis in 1 out of 2 blood culture samples is likely contaminant. Antibiotics de-escalated to IV ceftriaxone and Flagyl due to concerns for aspiration pneumonia. Speech therapy on board. #Hypokalemia: Potassium is 2.5. Magnesium is 1.9. Will replace and trend. #Dysphagia: on pureed diet. speech therapy on board #History of seizure disorder: * on depakote. Now on IV IV depakote due to patient refusing oral meds. * Will switch back to p.o. Depakote as she is not taking in orally. #History of Nelson syndrome: patient nonverbal. Stable #Hypophosphatemia:resolved DVT prophylaxis: lovenox Charges/Coding Visit Charges Inpatient E&M: 02213 Subs Hosp L2
[2024-12-04 14:55] VITALS: BP 156/98; PULSE 113; RESP 19; TEMP 38.2; O2SAT 94
[2024-12-04 16:27] VITALS: TEMP 37.2
[2024-12-04 22:26] VITALS: BP 120/92; PULSE 99; RESP 18; TEMP 38.3; O2SAT 95
[2024-12-04] MEDS: Topiramate 50 MG Tablet 150 MG PO (22:49)
[2024-12-04] MEDS: Loperamide 2 MG Capsule PO (23:05)
[2024-12-05] MEDS: Ondansetron 4 MG/2 ML Vial IV (00:54)
[2024-12-05] MEDS: 0.9% Saline Lock 10 ML Syringe IV (00:54)
[2024-12-05 00:58] VITALS: TEMP 38.2
[2024-12-05 01:00] VITALS: TEMP 38.3
[2024-12-05] MEDS: Ketorolac 15 MG/ML Vial IV (01:30)
[2024-12-05] MEDS: Valproate Sodium 500 MG in Dextrose 5%-Water (50mL Bag) 50 ML 50 MG IV ×4 (01:53→17:04)
[2024-12-05] MEDS: Acetaminophen 650 MG Suppository RC (05:26)
[2024-12-05 05:27] LABS: Hematocrit 30.9 % (37-47); Hemoglobin 10.2 g/dL (12.0-15.0); Mean Platelet Vol. 10.1 fl (6.2-12.0); POSITIVE COUNT YES; POSITIVE DIFFERENTIAL YES; POSITIVE MORPHOLOGY YES; Platelet Count 213 K/mm3 (150-450); RBC Distribution Width CV 15.9 % (11.6-14.6); RBC Distribution Width SD 61.1 fl (35.1-43.9)
[2024-12-05 05:28] LABS: Differential Indicated MANUAL DIFF
[2024-12-05 05:42] VITALS: BP 104/80; PULSE 85; RESP 16; TEMP 36.2; O2SAT 99
[2024-12-05] MEDS: metroNIDAZOLE 500 MG/100 ML BAG 100 MG IV ×3 (05:51→21:42)
[2024-12-05 06:15] LABS: Anion Gap 9 (5-15); BUN 7 mg/dL (4-19); Calcium,Total 8.3 mg/dL (7.6-11.0); Carbon Dioxide 22.5 mmol/L (21.0-32.0); Chloride 110 mmol/L (98-108); Creatinine, Serum 0.51 mg/dL (0.70-1.20); EST Glomerular Filtration Rate 121 (>60); Estimated Creatinine Clearance 97.33 ml/min (50-250); Glucose 83 mg/dL (70-99); Potassium 3.3 mmol/L (3.3-5.1); Sodium Level 141 mmol/L (133-145)
[2024-12-05 06:43] LABS: Corrected WBC 9.8 K/mm3 (4.4-11.0); Eosinophil 1 % (0-5); Lymphocyte 24 % (19-41); Metamyelocyte 3 % (0-1); Monocyte 13 % (0-10); Neutrophil-Band 2 % (0-5); Neutrophil-Segmented 57 % (47-70); Nucleated Red Bld Cells,Manual 6 % (0-5); Total Cells Counted 100 (MANUAL DIFF)
[2024-12-05 06:45] LABS: Absolute Neutrophil Count 5.6 X10^3/uL (2.0-7.7)
[2024-12-05 06:47] LABS: Platelet Estimate ADEQUATE (ADEQ)
[2024-12-05 06:48] LABS: Macrocytosis 1+
[2024-12-05 06:51] LABS: Other RBC Morphology 1+
[2024-12-05] MEDS: Loperamide 2 MG Capsule PO (06:56)
[2024-12-05 08:00] VITALS: BP 113/80; PULSE 84; RESP 17; TEMP 36.2; O2SAT 94
[2024-12-05] MEDS: Topiramate 50 MG Tablet 150 MG PO ×2 (08:37→21:46)
[2024-12-05] MEDS: Enoxaparin 30 MG/0.3 ML Syringe SC (08:37)
[2024-12-05] MEDS: Baclofen 10 MG Tablet 5 MG PO (08:37)
[2024-12-05] MEDS: Cholecalciferol (VIT D3) 25 MCG TABLET (1,000 UNITS) PO ×2 (08:38→08:39)
[2024-12-05] MEDS: carBAMazepine 200 MG Tablet PO ×2 (08:39→21:46)
--- NOTE | 2024-12-05 09:35 | PCM.PROGNOTE ---
Subjective Subjective Patient seen and examined. Her mother was by her bedside. Mother said patient had a bit of a rough night and was yelling out throughout the night. Her nurse had asked about some Ativan for her. Explained to the mother that I was a bit leery about giving Ativan because I did not want the patient to become increasingly lethargic. Mother was in agreement and says she did not want patient to have Ativan either. She has been hemodynamically stable though she did have a fever earlier today with temperature of 100.9 Fahrenheit. She is still coughing and has not had any nausea or vomiting. She remains on room air. Mother says she has been eating a little bit more now. Objective Data Objective Data Vital Signs: Vital Signs Temp Pulse Resp BP Pulse Ox O2 Del Method 97.2 F L 84 17 113/80 94 Room Air 12/05/24 08:00 12/05/24 08:00 12/05/24 08:00 12/05/24 08:00 12/05/24 08:00 12/05/24 08:00 Oxygen Delivery Method Room Air Weight: 92 lb 11.2 oz Body Mass Index (BMI) 24.1 Intake & Output: Intake and Output for Last 24 Hours 12/03/24 12/04/24 12/05/24 23:59 23:59 23:59 Intake Total 2809.99 / 2809.99 2542.17 / 2542.17 903.34 / 903.34 Output Total 1850 / 3250 2400 / 2400 400 / 400 Balance 959.99 / -440.01 142.17 / 142.17 503.34 / 503.34 Lab / Micro Data 12/05/24 04:30 12/05/24 04:30 Labs: Laboratory Results - last 24 hr 12/04/24 05:25: Magnesium 1.9 12/05/24 04:30: WBC BUSINESS PROCESS LEAD, Corrected WBC 9.8, RBC 3.00 L, Hgb 10.2 L, Hct 30.9 L, MCV 103.0 H, MCH 34.0 H, MCHC 33.0, RDW Std Deviation 61.1 H, RDW Coeff of Chayo 15.9 H, Plt Count 213, MPV 10.1, Neut % (Auto) Not Reportable, Absolute Neuts (auto) 5.6, Absolute Lymphs (auto) 2.40, Total Counted 100, Neutrophils % (Manual) 57, Band Neutrophils % 2, Lymphocytes % (Manual) 24, Monocytes % (Manual) 13 H, Eosinophils % (Manual) 1, Metamyelocytes % 3 H, Nucleated RBCs/100 WBC 6 H, Platelet Estimate ADEQUATE, RBC Morphology 1+, Macrocytosis 1+, Sodium 141, Potassium 3.3, Chloride 110 H, Carbon Dioxide 22.5, Anion Gap 9, BUN 7, Creatinine 0.51 L, Estim Creat Clear Calc 97.33, Est GFR (MDRD) Non-Af 121, BUN/Creatinine Ratio 14.0, Glucose 83, Calcium 8.3 Micro: Microbiology 12/04/24 00:37 Stool Enteric Bacteriology - Final 12/04/24 00:37 Stool Clostridioides difficile (PCR) - Final 11/30/24 22:17 Blood Culture (Wb) - Arm Left Bacteria Detection (PCR) - Final Staphylococcus epidermidis 11/30/24 22:17 Blood Culture (Wb) - Arm Left Blood Culture - Preliminary Coag Negative Staph 12/01/24 14:11 Sputum, Induced/Lukens Gram Stain - Final 12/01/24 14:11 Sputum, Induced/Lukens Respiratory Culture - Final Mixed normal respiratory britany. No Streptococcus pneumoniae, beta-hemolytic Streptococcus or Staphylococcus aureus isolated. 11/30/24 23:48 Urine, Catheterized Urine Culture - Final Escherichia coli 11/30/24 22:21 Blood Culture (Wb) - Arm Left Blood Culture - Preliminary No growth in 48 hours. 12/01/24 13:20 Urine Catheter - Catheter Streptococcus pneumoniae Antigen (M - Final 12/01/24 13:20 Urine Catheter - Hill Legionella Antigen - Final 12/01/24 05:25 Mucosa - Nasopharyngeal Respiratory Panel (PCR) - Final 11/30/24 22:08 Mucosa - Nasopharyngeal SARS-CoV-2, Influenza & RSV (PCR) - Final Physical Exam Const alert, no apparent distress and well nourished; Negative for average body habitus Constitutional Narrative: Nonverbal. Has underlying Nelson's syndrome. Makes inaudible loud sounds. General Appearance: cooperative HEENT normocephalic, head/scalp atraumatic, moist oral mucous membranes and oropharynx normal; Negative for dentition normal Eyes PERRL, EOMs intact bilaterally and conjunctivae normal Eyes Narrative: No scleral icterus Neck no lymphadenopathy and supple Neck Narrative: Trachea midline, no notable lymphadenopathy Lymph Lymphatic: no lymphadenopathy noted Resp Resp Narrative: mildly diminished breath sounds bibasally, no wheezes or crackles. On room air Cardio regular rate, regular rhythm, S1 normal heart sound, S2 normal heart sound and no murmurs GI normal to inspection, nondistended, normoactive bowel sounds and soft to palpation Extremity normal capillary refill, no clubbing, cyanosis or edema and no calf tenderness Extremity Narrative: Decreased lean muscle mass, 2+ radial and pedal pulses General Extremity: no tenderness to palpation of joints or extremities Skin skin turgor normal, no jaundice, no petechiae and no mottling General Skin Exam: no breakdown Neuro Neuro Narrative: moves all extremities, nonverbal. Makes frequent loud, inaudible noises Motor Exam: general weakness Psych Psych Narrative: Calm, patient is nonverbal so difficult to assess Mood & Affect: flat affect Assessment & Plan Assessment/Plan (1) Pyelonephritis: (2) Sepsis: (3) Tachycardia: (4) Dehydration: PLAN: Plan #Sepsis due to left pyelonephritis and probable pneumonia patient still having a low grade fever and had temperature of 100.9F today. CT abdomen and pelvis showed left pyelonephritis. CT chest showed infiltrate in the left lower lobe covid, influenza and RSV. Sputum cultures negative. Urine for strep and legionella negative Blood cultures growing Stap epidermidis in 1/2 samples 2D echo showed EF of 60% with no vegetations noted and no evidence of diastolic dysfunction. ID on board: ID thinks that the Staph epidermidis in 1 out of 2 blood culture samples is likely contaminant. Antibiotics de-escalated to IV ceftriaxone and Flagyl due to concerns for aspiration pneumonia. Speech therapy on board. #Hypokalemia: resolved. Potassium is up to 3.3 today. Will monitor #Dysphagia: on pureed diet. speech therapy on board #History of seizure disorder: on depakote. Now on IV depakote due to patient refusing oral meds. Will switch back to p.o. Depakote yesterday but she was not able to tolerate the oral Depakote so she is still on her IV Depakote. #History of Nelson syndrome: patient nonverbal. Stable #Hypophosphatemia:resolved DVT prophylaxis: lovenox Charges/Coding Visit Charges Inpatient E&M: 83328 Subs Hosp L2
[2024-12-05 10:32] LABS: Phosphorus 1.7 mg/dL (2.7-4.5)
[2024-12-05] MEDS: Ceftriaxone 2 GM in 0.9% Normal Saline (50mL MB+) 50 ML IV (10:36)
[2024-12-05] MEDS: [UNRECOGNIZED DRUG - OTHER] 6000 PO ×2 (13:57→21:56)
[2024-12-05 14:00] VITALS: BP 119/60; PULSE 87; RESP 16; TEMP 36.8; O2SAT 96
[2024-12-05] MEDS: Lactated Ringers 1,000 ML 100 ML IV (21:42)
[2024-12-05] MEDS: Menthol/Lanolin/Calamine/Znox 113 GM Tube 1 APPLIC TOPICAL (21:43)
[2024-12-05 22:02] VITALS: BP 135/102; PULSE 88; RESP 20; TEMP 37.4; O2SAT 95
[2024-12-06] MEDS: Valproate Sodium 500 MG in Dextrose 5%-Water (50mL Bag) 50 ML 50 MG IV ×4 (00:14→17:55)
[2024-12-06 04:02] VITALS: BP 102/79; PULSE 98; RESP 18; TEMP 37.2; O2SAT 98
[2024-12-06 05:15] LABS: Hematocrit 29.6 % (37-47); Hemoglobin 9.9 g/dL (12.0-15.0); Mean Corp Hgb Conc 33.4 g/dL (32-36); Mean Corpuscular Hgb 33.9 pg (27.0-32.0); Mean Corpuscular Volume 101.4 fL (81-99); Mean Platelet Vol. 9.9 fl (6.2-12.0); POSITIVE COUNT YES; POSITIVE MORPHOLOGY YES; Platelet Count 290 K/mm3 (150-450); Red Blood Count 2.92 M/mm3 (4.2-5.4)
[2024-12-06 05:23] LABS: Differential Indicated MANUAL DIFF
[2024-12-06 05:51] LABS: Anion Gap 10 (5-15); BUN 8 mg/dL (4-19); BUN/Creat Ratio 19.4 RATIO (10-20); Calcium,Total 8.8 mg/dL (7.6-11.0); Chloride 109 mmol/L (98-108); Creatinine, Serum 0.41 mg/dL (0.70-1.20); EST Glomerular Filtration Rate 128 (>60); Estimated Creatinine Clearance 121.07 ml/min (50-250); Glucose 80 mg/dL (70-99); Potassium 2.9 mmol/L (3.3-5.1); Sodium Level 142 mmol/L (133-145)
[2024-12-06 06:27] LABS: Eosinophil 7 % (0-5); Lymphocyte 30 % (19-41); Metamyelocyte 2 % (0-1); Monocyte 11 % (0-10); Neutrophil-Band 1 % (0-5); Neutrophil-Segmented 49 % (47-70); Total Cells Counted 100 (MANUAL DIFF)
[2024-12-06 06:28] LABS: Corrected WBC 8.5 K/mm3 (4.4-11.0); Nucleated Red Bld Cells,Manual 20 % (0-5)
[2024-12-06 06:32] LABS: Absolute Neutrophil Count 4.2 X10^3/uL (2.0-7.7)
[2024-12-06] MEDS: metroNIDAZOLE 500 MG/100 ML BAG 100 MG IV ×3 (06:32→22:28)
[2024-12-06 06:34] LABS: Anisocytosis 1+; Macrocytosis 1+; Polychromasia RARE
[2024-12-06 08:00] VITALS: BP 149/84; PULSE 88; RESP 18; TEMP 37.4; O2SAT 95
[2024-12-06 08:06] VITALS: BMI 25.6
[2024-12-06] MEDS: Cholecalciferol (VIT D3) 25 MCG TABLET (1,000 UNITS) PO (08:08)
[2024-12-06] MEDS: Ferrous Sulfate 300 MG/5 ML UDC PO (08:08)
[2024-12-06] MEDS: Enoxaparin 30 MG/0.3 ML Syringe SC (08:08)
[2024-12-06] MEDS: Baclofen 10 MG Tablet 5 MG PO (08:08)
[2024-12-06] MEDS: carBAMazepine 200 MG Tablet PO ×2 (08:10→22:31)
[2024-12-06] MEDS: Potassium Chloride Oral Soln 20 MEQ/15 ML UDC 60 MEQ PO (08:11)
[2024-12-06] MEDS: [UNRECOGNIZED DRUG - OTHER] 6000 PO ×2 (08:37→22:32)
[2024-12-06 09:17] VITALS: BP 168/96; PULSE 102; RESP 18; TEMP 37.7; O2SAT 92
--- NOTE | 2024-12-06 09:23 | NURSING ---
speach therapist Lucinda requested evaluation. pt noted to be sweaty and brock red faced. vs obtained. mother bedside - meds reviewed. mother states wasn't significantly agitated w. working with speach therapy. discussed these w/ primary RN.
[2024-12-06] MEDS: Topiramate 50 MG Tablet 150 MG PO ×2 (09:53→22:31)
[2024-12-06] MEDS: Ceftriaxone 2 GM in 0.9% Normal Saline (50mL MB+) 50 ML IV (09:53)
[2024-12-06] MEDS: Menthol/Lanolin/Calamine/Znox 113 GM Tube 1 APPLIC TOPICAL ×2 (09:53→22:27)
[2024-12-06] MEDS: Acetaminophen 650 MG Suppository RC (09:54)
--- NOTE | 2024-12-06 10:37 | PN.HOSP_ITS ---
Reason for Visit Reason for Visit: Fever/decreased p.o. intake Subjective Subjective Mother states that p.o. intake is still not great. Seems to fluctuate some. Definitely overall better since coming into the hospital on Friday. Low-grade temps overnight but no true fever. Objective Data Objective Data Vital Signs: Vital Signs Temp Pulse Resp BP Pulse Ox O2 Del Method 99.9 F H 102 H 18 168/96 H 92 Room Air 12/06/24 09:17 12/06/24 09:17 12/06/24 09:17 12/06/24 09:17 12/06/24 09:17 12/06/24 09:17 Oxygen Delivery Method Room Air Weight: 44.6 kg Body Mass Index (BMI) 25.6 Intake & Output: Intake and Output for Last 24 Hours 12/04/24 12/05/24 12/06/24 23:59 23:59 23:59 Intake Total 2542.17 / 2542.17 1670.00 / 1720.00 1198.33 / 1198.33 Output Total 2400 / 2400 650 / 650 1000 / 1000 Balance 142.17 / 142.17 1020.00 / 1070.00 198.33 / 198.33 Lab / Micro Data 12/06/24 04:20 12/06/24 11:42 Labs: Laboratory Results - last 24 hr 12/06/24 04:20: WBC RESIDENTIAL GLAZIER, Corrected WBC 8.5, RBC 2.92 L, Hgb 9.9 L, Hct 29.6 L, M CV 101.4 H, MCH 33.9 H, MCHC 33.4, RDW Std Deviation 60.0 H, RDW Coeff of Chayo 16.0 H, Plt Count 290, MPV 9.9, Neut % (Auto) Not Reportable, Absolute Neuts (auto) 4.2, Absolute Lymphs (auto) 2.60, Total Counted 100, Neutrophils % (Manual) 49, Band Neutrophils % 1, Lymphocytes % (Manual) 30, Monocytes % (Manual) 11 H, Eosinophils % (Manual) 7 H, Metamyelocytes % 2 H, Nucleated RBCs/100 WBC 20 H, Polychromasia RARE, Anisocytosis 1+, Macrocytosis 1+, Sodium 142, Potassium 2.9 L, Chloride 109 H, Carbon Dioxide 23.0, Anion Gap 10, BUN 8, Creatinine 0.41 L, Estim Creat Clear Calc 121.07, Est GFR (MDRD) Non-Af 128, BUN/Creatinine Ratio 19.4, Glucose 80, Calcium 8.8 Micro: Microbiology 11/30/24 22:17 Blood Culture (Wb) - Arm Left Bacteria Detection (PCR) - Final Staphylococcus epidermidis 11/30/24 22:17 Blood Culture (Wb) - Arm Left Blood Culture - Final Coag Negative Staph 11/30/24 22:21 Blood Culture (Wb) - Arm Left Blood Culture - Final No growth in 5 days. 12/04/24 00:37 Stool Enteric Bacteriology - Final 12/04/24 00:37 Stool Clostridioides difficile (PCR) - Final 12/01/24 14:11 Sputum, Induced/Lukens Gram Stain - Final 12/01/24 14:11 Sputum, Induced/Lukens Respiratory Culture - Final Mixed normal respiratory britany. No Streptococcus pneumoniae, beta-hemolytic Streptococcus or Staphylococcus aureus isolated. 11/30/24 23:48 Urine, Catheterized Urine Culture - Final Escherichia coli 12/01/24 13:20 Urine Catheter - Catheter Streptococcus pneumoniae Antigen (M - Final 12/01/24 13:20 Urine Catheter - Hill Legionella Antigen - Final 12/01/24 05:25 Mucosa - Nasopharyngeal Respiratory Panel (PCR) - Final 11/30/24 22:08 Mucosa - Nasopharyngeal SARS-CoV-2, Influenza & RSV (PCR) - Final Physical Exam Const alert, no apparent distress and well nourished; Negative for average body habitus Constitutional Narrative: Middle-aged, white female, underlying Rett syndrome, appears comfortable mother at bedside, nonverbal at baseline General Appearance: cooperative HEENT normocephalic, head/scalp atraumatic, moist oral mucous membranes and oropharynx normal; Negative for dentition normal Resp normal respiratory effort, no retractions, no use of accessory muscles and clear to auscultation bilaterally Auscultation: Negative for rales, rhonchi or wheezes Cardio regular rate, regular rhythm, S1 normal heart sound, S2 normal heart sound, no murmurs, no rub, no gallops and no clicks GI normal to inspection, nondistended, normoactive bowel sounds, soft to palpation and non-tender Extremity Extremity Narrative: Decreased lean muscle mass, 2+ radial and pedal pulses, patient with 1-2+ pitting edema bilateral lower extremities appearing consistent with volume overload Neuro Neuro Narrative: Nonverbal, contractures noted, decreased lean muscle mass from decreased movement Sensorium / Orientation: awake and alert Speech: Negative for speech normal Psych Psych Narrative: Calm, no current yelling out Assessment & Plan Assessment/Plan (1) Pyelonephritis: (2) Sepsis: (3) Hyponatremia: (4) Aspiration pneumonia: (5) Dysphagia: PLAN: Plan Sepsis secondary to left pyelonephritis and aspiration pneumonia - CT of the abdomen pelvis done on admission showed left pyelonephritis and left lower lobe infiltrate - 1 of 2 blood cultures positive for staph epi likely contaminant - Speech therapy is following with restricted p.o. having a pur?ed thin liquid diet - Plan is for modified barium swallow - Continue IV ceftriaxone and Flagyl per infectious disease - Will complete antibiotics per infectious disease at the time of discharge Dysphagia - Pur?e thin liquid diet per speech therapy - MBS planned for tomorrow - Continue speech therapy intervention Lower extremity edema - Discontinue IV fluids - Lasix 20 mg IV push x 1 dose - Reassess and if does not improve will check for lower extremity VTE - Patient has been on prophylaxis Hypokalemia - Potassium replaced - Repeat potassium for this afternoon - Check a.m. 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
[2024-12-06 11:04] LABS: Erythrocyte Sedimentation Rate 47 mm/hr (0-30)
[2024-12-06] MEDS: 0.9% Saline Lock 10 ML Syringe IV (11:11)
[2024-12-06] MEDS: Furosemide 20 MG/2 ML VIAL IV (11:11)
[2024-12-06] MEDS: 0.9% Normal Saline (1000mL) 1,000 ML IV (11:17)
[2024-12-06 11:18] VITALS: TEMP 36.9
[2024-12-06 12:25] LABS: Potassium 4.2 mmol/L (3.3-5.1)
[2024-12-06 14:12] VITALS: BP 140/80; PULSE 100; RESP 18; TEMP 36.4; O2SAT 94
--- NOTE | 2024-12-06 14:13 | PCM.PN.ID ---
Physical Exam Narrative More awake and smiling today per her parents. No fever overnight. Const no apparent distress Resp normal air movement and clear to auscultation bilaterally Cardio regular rate and regular rhythm GI soft to palpation, non-tender and non-distended Skin no rashes or lesions noted ID ID: Route of nutrition/ use of supplements: [] Nutritional Intake: [] IV Site: [] Hill Catheter: [] Assessment & Plan Assessment/Plan (1) Sepsis: PLAN: 1 of 2 bcx with CoNS, consistent with contaminated sample. CT showed pyelo, but ucx with less than 1k ecoli. Concern for ongoing aspiration pneumonia as well. Fever improved. Cont ceftriaxone/flagyl pending swallow study Will follow (2) Pyelonephritis:
[2024-12-06 20:10] VITALS: BP 144/99; PULSE 96; RESP 17; TEMP 37; O2SAT 95
[2024-12-07] MEDS: Valproate Sodium 500 MG in Dextrose 5%-Water (50mL Bag) 50 ML 50 MG IV ×4 (00:14→22:12)
[2024-12-07] MEDS: Acetaminophen 650 MG Suppository RC (03:15)
[2024-12-07 03:34] VITALS: BP 132/93; PULSE 83; RESP 18; TEMP 37.7; O2SAT 95
[2024-12-07 04:47] LABS: Hematocrit 28.4 % (37-47); Hemoglobin 9.3 g/dL (12.0-15.0); Mean Corp Hgb Conc 32.7 g/dL (32-36); Mean Corpuscular Hgb 33.9 pg (27.0-32.0); Mean Corpuscular Volume 103.6 fL (81-99); Mean Platelet Vol. 9.7 fl (6.2-12.0); POSITIVE COUNT YES; POSITIVE DIFFERENTIAL YES; POSITIVE MORPHOLOGY YES; Platelet Count 299 K/mm3 (150-450); RBC Distribution Width CV 16.6 % (11.6-14.6); RBC Distribution Width SD 63.1 fl (35.1-43.9); Red Blood Count 2.74 M/mm3 (4.2-5.4)
[2024-12-07 04:59] LABS: Differential Indicated MANUAL DIFF
[2024-12-07 05:12] LABS: Anion Gap 8 (5-15); BUN 9 mg/dL (4-19); BUN/Creat Ratio 22.9 RATIO (10-20); Calcium,Total 8.4 mg/dL (7.6-11.0); Chloride 112 mmol/L (98-108); Creatinine, Serum 0.41 mg/dL (0.70-1.20); EST Glomerular Filtration Rate 127 (>60); Estimated Creatinine Clearance 128.42 ml/min (50-250); Glucose 91 mg/dL (70-99); Magnesium 1.8 mg/dL (1.5-2.2); Potassium 3.4 mmol/L (3.3-5.1); Sodium Level 143 mmol/L (133-145)
[2024-12-07 05:45] LABS: Phosphorus 1.7 mg/dL (2.7-4.5)
[2024-12-07 05:46] VITALS: BMI 24.3
[2024-12-07 06:37] LABS: Corrected WBC 7.9 K/mm3 (4.4-11.0); Eosinophil 5 % (0-5); Lymphocyte 30 % (19-41); Metamyelocyte 4 % (0-1); Monocyte 12 % (0-10); Myelocyte 2 % (0-0); Neutrophil-Band 7 % (0-5); Neutrophil-Segmented 39 % (47-70); Nucleated Red Bld Cells,Manual 21 % (0-5); Plasma Cell 1 %; Total Cells Counted 100 (MANUAL DIFF)
[2024-12-07 06:44] LABS: Absolute Neutrophil Count 3.6 X10^3/uL (2.0-7.7)
[2024-12-07 06:45] LABS: Absolute Lymphocyte Count 2.37 X10^3/uL (0.83-4.51); Acanthocytes RARE; Anisocytosis 1+; Macrocytosis 1+; Platelet Estimate ADEQUATE (ADEQ); Polychromasia 1+
[2024-12-07 06:46] LABS: Pathologist Review May foll; Schistocytes RARE; Target Cells RARE; Tear Drop Cell RARE
[2024-12-07] MEDS: Potassium Phosphate 40 MM in 0.9% Normal Saline (500mL Bag) 500 ML 62.5 MM IV (08:26)
[2024-12-07 09:00] VITALS: BP 134/90; PULSE 80; RESP 18; TEMP 37.3; O2SAT 96
[2024-12-07] MEDS: Enoxaparin 30 MG/0.3 ML Syringe SC (09:36)
[2024-12-07] MEDS: Topiramate 50 MG Tablet 150 MG PO ×2 (09:37→22:14)
[2024-12-07] MEDS: carBAMazepine 200 MG Tablet PO ×2 (09:37→22:13)
[2024-12-07] MEDS: Menthol/Lanolin/Calamine/Znox 113 GM Tube 1 APPLIC TOPICAL ×2 (09:38→22:12)
[2024-12-07 10:00] VITALS: PULSE 88; RESP 18
[2024-12-07] MEDS: [UNRECOGNIZED DRUG - OTHER] 6000 PO ×2 (10:00→22:15)
[2024-12-07] MEDS: Baclofen 10 MG Tablet 5 MG PO (10:03)
[2024-12-07] MEDS: Ceftriaxone 2 GM in 0.9% Normal Saline (50mL MB+) 50 ML IV (10:04)
--- NOTE | 2024-12-07 10:35 | CASEMGMT ---
GAIL CM into pt room, pt mother provided with an outpt ST rx. Pt mother states she will schedule on her own as her calendar is at home. She denies any questions regarding this or any other homegoing needs at this time.
[2024-12-07 14:47] VITALS: BP 129/88; PULSE 82; RESP 18; TEMP 37.1; O2SAT 96
--- NOTE | 2024-12-07 15:45 | PN.HOSP_ITS ---
Reason for Visit Reason for Visit: Fever/decreased p.o. intake Subjective Subjective P.o. intake still not good. Discussed with speech therapy no plans for doing a modified barium swallow today. If they do not think she will be able to comply at this time. Objective Data Objective Data Vital Signs: Vital Signs Temp Pulse Resp BP Pulse Ox O2 Del Method 98.7 F 82 18 129/88 H 96 Room Air 12/07/24 14:47 12/07/24 14:47 12/07/24 14:47 12/07/24 14:47 12/07/24 14:47 12/07/24 14:47 Oxygen Delivery Method Room Air Weight: 42.4 kg Body Mass Index (BMI) 24.3 Intake & Output: Intake and Output for Last 24 Hours 12/05/24 12/06/24 12/07/24 23:59 23:59 23:59 Intake Total 1670.00 / 1720.00 1737.85 / 1737.85 693.96 / 693.96 Output Total 650 / 650 1350 / 1350 420 / 420 Balance 1020.00 / 1070.00 387.85 / 387.85 273.96 / 273.96 Lab / Micro Data 12/07/24 04:28 12/07/24 04:28 Labs: Laboratory Results - last 24 hr 12/07/24 04:28: WBC PRODUCTION REPAIRER, Corrected WBC 7.9, RBC 2.74 L, Hgb 9.3 L, Hct 28.4 L, M CV 103.6 H, MCH 33.9 H, MCHC 32.7, RDW Std Deviation 63.1 H, RDW Coeff of Chayo 16.6 H, Plt Count 299, MPV 9.7, Neut % (Auto) Not Reportable, Absolute Neuts (auto) 3.6, Absolute Lymphs (auto) 2.37, Total Counted 100, Neutrophils % (Manual) 39 L, Band Neutrophils % 7 H, Lymphocytes % (Manual) 30, Monocytes % (Manual) 12 H, Eosinophils % (Manual) 5, Metamyelocytes % 4 H, Myelocytes % 2 H, Plasma Cell % (Manual) 1, Nucleated RBCs/100 WBC 21 H, Diff Path Review May , Platelet Estimate ADEQUATE, Polychromasia 1+, Anisocytosis 1+, Macrocytosis 1+, Target Cells RARE, Tear Drop Cells RARE, Acanthocytes (Spur) RARE, Schistocytes RARE, Sodium 143, Potassium 3.4, Chloride 112 H, Carbon Dioxide 23.0, Anion Gap 8, BUN 9, Creatinine 0.41 L, Estim Creat Clear Calc 128.42, Est GFR (MDRD) Non-Af 127, BUN/Creatinine Ratio 22.9 H, Glucose 91, Calcium 8.4, Phosphorus 1.7 L, Magnesium 1.8 Micro: Microbiology 11/30/24 22:17 Blood Culture (Wb) - Arm Left Bacteria Detection (PCR) - Final Staphylococcus epidermidis 11/30/24 22:17 Blood Culture (Wb) - Arm Left Blood Culture - Final Coag Negative Staph 11/30/24 22:21 Blood Culture (Wb) - Arm Left Blood Culture - Final No growth in 5 days. 12/04/24 00:37 Stool Enteric Bacteriology - Final 12/04/24 00:37 Stool Clostridioides difficile (PCR) - Final 12/01/24 14:11 Sputum, Induced/Lukens Gram Stain - Final 12/01/24 14:11 Sputum, Induced/Lukens Respiratory Culture - Final Mixed normal respiratory britany. No Streptococcus pneumoniae, beta-hemolytic Streptococcus or Staphylococcus aureus isolated. 11/30/24 23:48 Urine, Catheterized Urine Culture - Final Escherichia coli 12/01/24 13:20 Urine Catheter - Catheter Streptococcus pneumoniae Antigen (M - Final 12/01/24 13:20 Urine Catheter - Hill Legionella Antigen - Final 12/01/24 05:25 Mucosa - Nasopharyngeal Respiratory Panel (PCR) - Final 11/30/24 22:08 Mucosa - Nasopharyngeal SARS-CoV-2, Influenza & RSV (PCR) - Final Physical Exam Const alert, no apparent distress and well nourished; Negative for average body habitus Constitutional Narrative: Middle-aged, white female, underlying Rett syndrome, appears comfortable mother at bedside, nonverbal at baseline General Appearance: cooperative HEENT normocephalic, head/scalp atraumatic, moist oral mucous membranes and oropharynx normal; Negative for dentition normal Eyes PERRL, EOMs intact bilaterally and conjunctivae normal Eyes Narrative: No scleral icterus Neck no lymphadenopathy and supple Neck Narrative: Trachea midline, no notable lymphadenopathy Lymph Lymphatic: no lymphadenopathy noted Resp normal respiratory effort, no retractions, no use of accessory muscles and clear to auscultation bilaterally Resp Narrative: mildly diminished breath sounds bibasally, no wheezes or crackles. On room air Auscultation: Negative for rales, rhonchi or wheezes Cardio regular rate, regular rhythm, S1 normal heart sound, S2 normal heart sound, no murmurs, no rub, no gallops and no clicks Cardio Narrative: Tachycardia GI normal to inspection, nondistended, normoactive bowel sounds, soft to palpation, non-tender and non-distended Extremity normal capillary refill, no clubbing, cyanosis or edema and no calf tenderness Extremity Narrative: Decreased lean muscle mass, 2+ radial and pedal pulses, patient with 1-2+ pitting edema bilateral lower extremities appearing consistent with volume overload General Extremity: no tenderness to palpation of joints or extremities Skin skin turgor normal, no jaundice, no petechiae and no mottling General Skin Exam: no breakdown Neuro Neuro Narrative: Nonverbal, contractures noted, decreased lean muscle mass from decreased movement Sensorium / Orientation: awake and alert Speech: Negative for speech normal Motor Exam: general weakness Psych Psych Narrative: Calm, no current yelling out Mood & Affect: flat affect Assessment & Plan Assessment/Plan (1) Pyelonephritis: (2) Sepsis: (3) Hyponatremia: (4) Aspiration pneumonia: (5) Dysphagia: PLAN: Plan Sepsis secondary to left pyelonephritis and aspiration pneumonia - CT of the abdomen pelvis done on admission showed left pyelonephritis and left lower lobe infiltrate - Speech therapy is following with restricted p.o. having a pur?ed thin liquid diet - Plan is for modified barium swallow in the future -Anticipate this to be done after discharge - Discontinue IV antibiotics as she has had a full course and see if this helps improve her p.o. intake as the Flagyl could potentially be upsetting her stomach -Continue to monitor clinically as we do suspect she is chronically aspirating this part of the etiology for her ongoing and intermittent low-grade temperature elevations - Discussed with infectious disease Dysphagia - Continue pur?e thin liquid diet per speech therapy - MBS was planned for today but unable to participate as patient not able to interact to do so at this time as she does not seem interested in food - Continue speech therapy intervention Lower extremity edema - Much improved after Lasix and discontinuing IV fluids - Continue to monitor volume status Diarrhea with history of constipation -Suspect acute diarrhea is likely related to her antibiotics -About 3 episodes a day so not consistent with C. difficile -Stop antibiotics and monitor for response - Hold home Pedialax - Hold home docusate Hypokalemia - Resolved Hypophosphatemia - K-Phos bolus given - Repeat Phos level in a.m. 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 intake, stopping antibiotics and seeing if the Flagyl is inducing any type of nausea that is decreasing her p.o. intake, PEG tube placement, and potentially hospice. Patient's family states they are not ready for hospice and they would like to see if stopping the antibiotics would stimulate her appetite at all. Discussed with Dr. Hassan and will hold antibiotics for now and reevaluate. We do suspect she is chronically aspirating. Family is aware that a PEG tube would not mitigate her risk for aspiration and could potentially make it worse. Charges/Coding Visit Charges Inpatient E&M: 59416 [facility] Hosp L3
[2024-12-07 17:00] VITALS: PULSE 88; RESP 18; O2SAT 95
[2024-12-07 21:55] VITALS: BP 133/80; PULSE 92; RESP 16; TEMP 36.4; O2SAT 95
[2024-12-08 03:43] VITALS: BP 128/82; PULSE 82; RESP 18; TEMP 36.6; O2SAT 96
[2024-12-08 04:33] LABS: Hematocrit 28.8 % (37-47); Hemoglobin 9.9 g/dL (12.0-15.0); Mean Corp Hgb Conc 34.4 g/dL (32-36); Mean Corpuscular Hgb 35.9 pg (27.0-32.0); Mean Corpuscular Volume 104.3 fL (81-99); Mean Platelet Vol. 9.7 fl (6.2-12.0); POSITIVE COUNT YES; POSITIVE DIFFERENTIAL YES; POSITIVE MORPHOLOGY YES; Platelet Count 366 K/mm3 (150-450); RBC Distribution Width CV 17.1 % (11.6-14.6); Red Blood Count 2.76 M/mm3 (4.2-5.4)
[2024-12-08 05:17] LABS: Differential Indicated MANUAL DIFF
[2024-12-08 06:00] VITALS: BMI 23.8
[2024-12-08 06:22] LABS: Phosphorus 4.4 mg/dL (2.7-4.5)
[2024-12-08] MEDS: Valproate Sodium 500 MG in Dextrose 5%-Water (50mL Bag) 50 ML 50 MG IV ×3 (06:36→17:33)
[2024-12-08 06:50] LABS: Anion Gap 12 (5-15); BUN 10 mg/dL (4-19); BUN/Creat Ratio 24.3 RATIO (10-20); Calcium,Total 8.8 mg/dL (7.6-11.0); Chloride 113 mmol/L (98-108); Creatinine, Serum 0.42 mg/dL (0.70-1.20); EST Glomerular Filtration Rate 126 (>60); Estimated Creatinine Clearance 116.93 ml/min (50-250); Glucose 89 mg/dL (70-99); Sodium Level 144 mmol/L (133-145)
--- NOTE | 2024-12-08 07:14 | PN.HOSP_ITS ---
Reason for Visit Reason for Visit: Fever/decreased p.o. intake Subjective Subjective No issues overnight. Mom states that p.o. intake has improved since last evening. Little bit better this morning at breakfast too. Liquid intake has improved significantly since yesterday. Objective Data Objective Data Vital Signs: Vital Signs Temp Pulse Resp BP Pulse Ox O2 Del Method 97.9 F 82 18 128/82 H 96 Room Air 12/08/24 03:43 12/08/24 03:43 12/08/24 03:43 12/08/24 03:43 12/08/24 03:43 12/08/24 03:44 Oxygen Delivery Method Room Air Weight: 41.6 kg Body Mass Index (BMI) 23.8 Intake & Output: Intake and Output for Last 24 Hours 12/06/24 12/07/24 12/08/24 23:59 23:59 23:59 Intake Total 1737.85 / 1737.85 1534.96 / 1534.96 Output Total 1350 / 1350 820 / 820 450 / 450 Balance 387.85 / 387.85 714.96 / 714.96 -450 / -450 Lab / Micro Data 12/08/24 04:00 12/08/24 04:00 Labs: Laboratory Results - last 24 hr 12/08/24 04:00: WBC 10.8, RBC 2.76 L, Hgb 9.9 L, Hct 28.8 L, MCV 104.3 H, MCH 35.9 H, MCHC 34.4 D, RDW Std Deviation 64.0 H, RDW Coeff of Chayo 17.1 H, Plt Count 366, MPV 9.7, Neut % (Auto) Not Reportable, Sodium 144, Potassium 4.0, C hloride 113 H, Carbon Dioxide 20.0 L, Anion Gap 12, BUN 10, Creatinine 0.42 L, Estim Creat Clear Calc 116.93, Est GFR (MDRD) Non-Af 126, BUN/Creatinine Ratio 24.3 H, Glucose 89, Calcium 8.8, Phosphorus 4.4 Micro: Microbiology 11/30/24 22:17 Blood Culture (Wb) - Arm Left Bacteria Detection (PCR) - Final Staphylococcus epidermidis 11/30/24 22:17 Blood Culture (Wb) - Arm Left Blood Culture - Final Coag Negative Staph 11/30/24 22:21 Blood Culture (Wb) - Arm Left Blood Culture - Final No growth in 5 days. 12/04/24 00:37 Stool Enteric Bacteriology - Final 12/04/24 00:37 Stool Clostridioides difficile (PCR) - Final 12/01/24 14:11 Sputum, Induced/[place] Gram Stain - Final 12/01/24 14:11 Sputum, Induced/[place]ens Respiratory Culture - Final Mixed normal respiratory britany. No Streptococcus pneumoniae, beta-hemolytic Streptococcus or Staphylococcus aureus isolated. 11/30/24 23:48 Urine, Catheterized Urine Culture - Final Escherichia coli 12/01/24 13:20 Urine Catheter - Catheter Streptococcus pneumoniae Antigen (M - Final 12/01/24 13:20 Urine Catheter - Hill Legionella Antigen - Final 12/01/24 05:25 Mucosa - Nasopharyngeal Respiratory Panel (PCR) - Final 11/30/24 22:08 Mucosa - Nasopharyngeal SARS-CoV-2, Influenza & RSV (PCR) - Final Physical Exam Const alert, no apparent distress and well nourished; Negative for average body habitus Constitutional Narrative: Middle-aged, white female, underlying Rett syndrome, appears comfortable mother at bedside, nonverbal at baseline, nursing at bedside getting patient cleaned up General Appearance: cooperative HEENT normocephalic, head/scalp atraumatic, moist oral mucous membranes and dentition normal Resp normal respiratory effort, no retractions, no use of accessory muscles and clear to auscultation bilaterally Auscultation: Negative for rales, rhonchi or wheezes Cardio regular rate, regular rhythm, S1 normal heart sound, S2 normal heart sound, no murmurs, no rub, no gallops and no clicks GI normal to inspection, nondistended, normoactive bowel sounds, soft to palpation and non-tender GI Narrative: Excellent bowel sounds Extremity normal capillary refill, no clubbing, cyanosis or edema and no calf tenderness Extremity Narrative: Decreased lean muscle mass, 2+ radial and pedal pulses, edema resolved Neuro Neuro Narrative: Nonverbal, contractures noted, decreased lean muscle mass from decreased movement Sensorium / Orientation: awake and alert Speech: Negative for speech normal Psych Psych Narrative: Calm, patient smiling and more interactive today than she has been since they have seen her in the hospital Mood & Affect: flat affect Assessment & Plan Assessment/Plan (1) Pyelonephritis: (2) Sepsis: (3) Hyponatremia: (4) Aspiration pneumonia: (5) Dysphagia: PLAN: Plan Sepsis secondary to left pyelonephritis and aspiration pneumonia - CT of the abdomen pelvis done on admission showed left pyelonephritis and left lower lobe infiltrate - Speech therapy is following with restricted p.o. having a pur?ed thin liquid diet - Plan is for modified barium swallow in the future -Anticipate this to be done after discharge however with increased alertness may be able to be done today or tomorrow - Antibiotics completed and monitor off -Continue to monitor clinically as we do suspect she is chronically aspirating this part of the etiology for her ongoing and intermittent low-grade temperature elevations -Hopeful that we can get a modified barium swallow done in the short-term - Will continue to discuss with infectious disease depending on results Dysphagia - Continue pur?e thin liquid diet per speech therapy - P.o. intake has improved so speech therapy will reevaluate for scheduling of a MBS - Continue speech therapy intervention Lower extremity edema - Resolved Diarrhea with history of constipation -Suspect acute diarrhea is likely related to her antibiotics -About 3 episodes a day so not consistent with C. 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 Hernández History of osteoporosis - On Prolia - Continue outpatient injections DVT prophylaxis - Continue Lovenox 30 daily CODE STATUS - Full code Charges/Coding Visit Charges Inpatient E&M: 42265 [facility] Hosp L2
[2024-12-08 08:29] LABS: Corrected WBC 11.5 K/mm3 (4.4-11.0); Eosinophil 3 % (0-5); Lymphocyte 35 % (19-41); Metamyelocyte 4 % (0-1); Monocyte 13 % (0-10); Neutrophil-Band 5 % (0-5); Neutrophil-Segmented 40 % (47-70); Nucleated Red Bld Cells,Manual 7 % (0-5); Total Cells Counted 100 (MANUAL DIFF)
[2024-12-08 08:36] LABS: Platelet Estimate ADEQUATE (ADEQ)
[2024-12-08 08:39] LABS: Polychromasia RARE
[2024-12-08 08:42] LABS: Absolute Lymphocyte Count 4.03 X10^3/uL (0.83-4.51); Absolute Neutrophil Count 5.2 X10^3/uL (2.0-7.7); Lymphocyte # 4.03 X10^3/ul (0.83-4.51)
[2024-12-08] MEDS: Ferrous Sulfate 300 MG/5 ML UDC PO (08:50)
[2024-12-08] MEDS: Baclofen 10 MG Tablet 5 MG PO (08:50)
[2024-12-08 08:55] VITALS: BP 146/89; PULSE 95; RESP 18; TEMP 37.7; O2SAT 99
[2024-12-08 09:08] LABS: Anisocytosis 1+; Ovalocyte 1+
[2024-12-08] MEDS: Menthol/Lanolin/Calamine/Znox 113 GM Tube 1 APPLIC TOPICAL ×2 (09:33→22:05)
[2024-12-08] MEDS: Cholecalciferol (VIT D3) 25 MCG TABLET (1,000 UNITS) PO (09:34)
[2024-12-08] MEDS: Enoxaparin 30 MG/0.3 ML Syringe SC (09:34)
[2024-12-08] MEDS: Topiramate 50 MG Tablet 150 MG PO ×2 (09:34→22:04)
[2024-12-08] MEDS: Acetaminophen 650 MG Suppository RC ×2 (09:35→22:05)
[2024-12-08] MEDS: [UNRECOGNIZED DRUG - OTHER] 6000 PO ×2 (09:35→22:06)
[2024-12-08] MEDS: carBAMazepine 200 MG Tablet PO ×2 (09:35→22:04)
[2024-12-08 16:26] VITALS: BP 131/86; PULSE 80; RESP 16; TEMP 36.5; O2SAT 97
[2024-12-08] MEDS: Loperamide 2 MG Capsule PO (22:03)
[2024-12-08 22:50] VITALS: BP 114/89; PULSE 82; RESP 16; TEMP 36.8; O2SAT 95
[2024-12-09] MEDS: Valproate Sodium 500 MG in Dextrose 5%-Water (50mL Bag) 50 ML 50 MG IV ×3 (00:06→11:57)
[2024-12-09 05:03] VITALS: BMI 23.6
[2024-12-09 05:08] VITALS: BP 104/85; PULSE 75; RESP 16; TEMP 36.6; O2SAT 95
[2024-12-09 05:44] LABS: Hematocrit 28.2 % (37-47); Mean Corp Hgb Conc 31.9 g/dL (32-36); Mean Corpuscular Hgb 34.1 pg (27.0-32.0); Mean Corpuscular Volume 106.8 fL (81-99); Mean Platelet Vol. 9.9 fl (6.2-12.0); POSITIVE COUNT YES; POSITIVE MORPHOLOGY YES; Platelet Count 442 K/mm3 (150-450); RBC Distribution Width CV 17.2 % (11.6-14.6); RBC Distribution Width SD 66.4 fl (35.1-43.9); Red Blood Count 2.64 M/mm3 (4.2-5.4)
[2024-12-09 06:21] LABS: Anion Gap 8 (5-15); BUN 12 mg/dL (4-19); BUN/Creat Ratio 29.5 RATIO (10-20); Calcium,Total 8.8 mg/dL (7.6-11.0); Chloride 113 mmol/L (98-108); Creatinine, Serum 0.42 mg/dL (0.70-1.20); EST Glomerular Filtration Rate 127 (>60); Estimated Creatinine Clearance 115.81 ml/min (50-250); Glucose 88 mg/dL (70-99); Potassium 3.9 mmol/L (3.3-5.1); Sodium Level 144 mmol/L (133-145)
[2024-12-09 06:39] LABS: Differential Indicated MANUAL DIFF
[2024-12-09 08:10] VITALS: BP 126/100; PULSE 82; RESP 18; TEMP 37.1; O2SAT 95
[2024-12-09 08:12] LABS: Corrected WBC 9.3 K/mm3 (4.4-11.0); Eosinophil 5 % (0-5); Lymphocyte 28 % (19-41); Metamyelocyte 8 % (0-1); Monocyte 11 % (0-10); Myelocyte 1 % (0-0); Neutrophil-Band 4 % (0-5); Neutrophil-Segmented 43 % (47-70); Nucleated Red Bld Cells,Manual 16 % (0-5); Total Cells Counted 100 (MANUAL DIFF)
[2024-12-09 08:18] LABS: Anisocytosis 1+; Polychromasia 1+
[2024-12-09] MEDS: Baclofen 10 MG Tablet 5 MG PO (08:20)
[2024-12-09] MEDS: Enoxaparin 30 MG/0.3 ML Syringe SC (08:21)
[2024-12-09] MEDS: Topiramate 50 MG Tablet 150 MG PO (08:21)
[2024-12-09] MEDS: carBAMazepine 200 MG Tablet PO (08:21)
[2024-12-09] MEDS: Menthol/Lanolin/Calamine/Znox 113 GM Tube 1 APPLIC TOPICAL (08:21)
[2024-12-09] MEDS: Cholecalciferol (VIT D3) 25 MCG TABLET (1,000 UNITS) PO (08:22)
[2024-12-09 08:26] LABS: Platelet Estimate MOD INC (ADEQ)
[2024-12-09] MEDS: [UNRECOGNIZED DRUG - OTHER] 6000 PO (08:31)
[2024-12-09 08:33] LABS: Absolute Neutrophil Count 4.4 X10^3/uL (2.0-7.7)
--- NOTE | 2024-12-09 09:12 | SP.MBSS_ITS ---
Modified Barium Swallow Patient Information Study Date: 12/09/24 Study Time: 09:15 Direct Billable Minutes: 117 Total Minutes procedure & reportin Diagnosis: Dysphagia R13.10; Aspiration PNA J18.9 Referring Physician: Ce Nicholson Reason for Referral: Assess swallow function, assess risk for aspiration, and determine recommendations for least restrictive diet textures and compensatory strategies to improve safety of swallow. Medical History: PMHx: Dysphagia, Scoliosis, History of osteoporosis, GERD, Seizure disorder, Rett syndrome. The patient presented to [facility] ED with her parents on 11/30/2024 due to decreased p.o. intake, fever, and malaise at home. Her parents give all the history as she is nonverbal at baseline. They report that symptoms began on Friday before admission. She is typically on a pur?ed / thin liquid diet which she had been tolerating well but her p.o. intake is decreased since Friday. Her mom does report that she is having some aspiration issues over the last year. She has had 2 modified barium swallows here. She has had low-grade fevers at home. Her functional status at baseline is limited to walking brief distances with assistance and stands for short period of time with assistance. Following ED work up, she was admitted for management of sepsis due to left pyelonephritis wi th additional concerns for aspiration PNA. ST consulted due to hx of dysphagia and concern for aspiration PNA. The patient was initially tolerating her puree / thin liquid diet; however, during the stay she had increased coughing taking medication (liquid) and continued recurring low grade fevers, so the GEOCHEMISTRY TEACHER recommended a repeat MBSS. MBSS unable to be completed 12/07/2024 due to poor intake. Antibiotics were stopped and the patient began eating/drinking more 12/10/2024. MBSS planned for today to further assess swallow function and aspiration risk. Hx of MBSS at [facility] (07/30/2023, 09/03/2024). Most recent MBSS revealed moderate oral phase dysphagia, mild pharyngoesophageal dysphagia, and recommended the following diet and safe swallowing strategies: Minced and Moist Textures, Puree Textures and Thin Liquids...Allow extra time to clear oral and suspected pharyngeal residues with minced and moist textures due to the significant amount of time required for swallowing. Benefits from alternating bite/sip to clear...Small Bites, Small Sips, Slow Rate, Feed only when alert, Multiple Swallows, Alternate bites/solids and sips/liquids, Sitting upright and Remain sitting upright for 30 minutes after PO intake...Supervision: Total Feed. She was also referred for GI consult due to esophageal retention of barium w/ retrograde flow. Current Diet Ordered: Puree / Thin Mental Status: Impaired Respiratory Status: Oxygenating on Room Air Penetration-Aspiration Scale Penetration-Aspiration Scale: OBJECTIVE ASSESSMENT OF SWALLOW FUNCTION (QUANTITATIVE ? PER TRIAL): PENETRATION / ASPIRATION SCALE (RIVERA): 1 = does not enter airway 2 = enters airway/above vocal folds/ejected 3 = enters airway/above vocal folds/not ejected 4 = enters airway/contacts vocal folds/ejected 5 = enters airway/contacts vocal folds/not ejected 6 = enters airway/below vocal folds/ejected 7 = enters airway/below vocal folds/not ejected despite effort 8 = enters airway/below vocal folds/no effort VIDEOFLOROSCOPIC SCALE SCORE (RIVERA): Grade I = aspiration of material that has penetrated into the laryngeal vestibule, intact cough reflex Grade II = aspiration < 10 % of the bolus, intact cough reflex Grade III = aspiration of < 10 % of the bolus, reduced cough reflex or aspiration of > 10 % of the bolus, intact cough reflex Grade IV = aspiration of > 10 % of the bolus, reduced cough reflex Penetration-Aspiration Scale Score Thin Liquid via small single sip: cup: Result: 2= enter airway/above vocal folds/ejected Thin Liquid via small single sip: cup Trial 2: Result: 2= enter airway/above vocal folds/ejected Thin Liquid via sequential sips: cup: Result: 2= enter airway/above vocal folds/ejected Pudding via teaspoon: Comment: ~1/4 tsp. No PAS score as the patient would not swallow the small bite of pudding w/o a liquid wash. Thin Liquid via small single sip: cup Trial 3: Result: 5= enters airways/contacts vocal folds/not ejected [place] Thick Liquid via small single sip: cup: Result: 1= does not enter airway Oral Phase Labial Seal: No Labial Escape Tongue Control During Bolus Hold: Posterior escape of greater than half of bolus Bolus Transport/Lingual Motion: Repetitive/disorganized tongue motion Oral Residue: Residue collection on oral structures Pharyngeal Phase Initiation of Pharyngeal Swallow: Bolus head in pyriforms Soft Palate Elevation: Trace column of contrast/air between soft palate and pharyngeal wall Laryngeal Elevation: Partial superior movement thyroid cart/partial apprx aryt- epig petiole Anterior Hyoid Excursion: Partial anterior movement Epiglottic Movement: Complete inversion Laryngeal Vestibule Closure at Height of Swallow: Incomplete; narrow column of air/contrast in laryngeal vestibule Pharyngeal Stripping Wave: Present - complete Pharyngoesophageal Segment Opening: Complete distension and complete duration; no obstruction of flow Tongue Base Retraction: Trace column of contrast between tongue base & post. pharyngeal wall Pharyngeal Residue: Trace residue within or on pharyngeal structures Diagnosis/Impression Diagnosis: Moderate oropharyngeal dysphagia R13.12 Impression: Pt required max verbal encouragement to accept liquid barium from GEOCHEMISTRY TEACHER and ~1/4 tsp of barium pudding from her mother (pudding provided by mother w/ fluoroscopy turned off). Limited trials due to pt only accepting a these few sips and 1 bite. The oral phase is marked by... -Decreased labial seal w/ anterior loss of liquids past mid-chin. -Decreased bolus control w/ posterior loss of liquids to the pyriforms. -No clearance of pudding from oral cavity initially, but w/ thin liquid wash she did clear the pudding from the oral cavity. -Did not trial cookie given pt resistance to additional trials of po intake. The pharyngeal phase is primarily marked by... -Delayed swallow onset w/ bolus in the pyriforms prior to swallow onset. -Decreased laryngeal elevation and anterior hyoid excursion w/ resulting laryngeal penetration of thin liquid wash (used to wash pudding from oral cavity) to the vocal folds w/ no reflexive cough and w/o ejection. No aspiration observed; however, cannot definitively rule out aspiration due to pt's body habitus. Recommendations Diet: Puree Textures and Thin Liquids Compensatory Strategies: Small Bites, Small Sips, Slow Rate, Alternate bites/solids and sips/liquids, Sitting upright and Remain sitting upright for 30 minutes after PO intake Supervision: Total Feed Recommend Repeat Modified Barium Swallow: TBD Need for Skilled Speech Therapy Services: Yes Comment: OP ST recommended at discharge. POC to include... -Training the patient's family in use of strategies to decrease risk for aspiration and reflux aspiration. -Training the patient's family in preparation and flow testing of mildly thick liquids. -Ongoing assessment of diet tolerance of recommended textures. Family was asking this GEOCHEMISTRY TEACHER about pleasure soft solids. Pt is discharging today. GEOCHEMISTRY TEACHER recommends bringing these pleasure foods to the patient's follow-up OP GEOCHEMISTRY TEACHER in order to trial these specific foods to determine if she is safe to swallow. Unfortunately due to limited po intake in the hospital setting, this GEOCHEMISTRY TEACHER was unable to see the patient have more than sips of liquids and few trials of purees during the stay. -If concern for poor hydration w/ mildly thick liquids once the pt discharges home, would consider implementing [place] Free Water Protocol. Of note, past MBSS have recommended GI follow up. An OP GI follow up has already been recommended and scheduled by hospitalist upon discharge from [facility]. Education Completed: 1. Described result of evaluation., 4. Family/caregivers un derstand evaluation & agree w/ goals & tx plan. and 8. Family/caregivers require further education on strategies & risks. Status Active ST Patient: Active Contact Information [facility] Speech Therapy:: Lucinda Reed M.A. [facility]-GEOCHEMISTRY TEACHER Speech-Language Pathologist [facility] [address] [place] [address] [email or web address] [phone]
--- NOTE | 2024-12-09 14:49 | PCM.DC.SUM ---
Providers Date of Admission: 12/01/24 Date of Discharge: 12/09/24 Primary Care Physician: Dr. Mir Sauceda MD Consultations 12/03/24 12:16 Consult: Infectious Disease Routine Consulting Provider: Duncan Hassan Reason for Consult: staph epidermidis bacteremia EMERGENT Consult: No MD Notified: Yes Date Notified: 12/03/24 Time Notified: 12:16 Method of Notification: Text Reason For Visit: FUO/DEHYDRATION Diagnosis Discharge Diagnosis (1) Pyelonephritis: Status: Acute Code(s): N12 - Tubulo-interstitial nephritis, not specified as acute or chronic (2) Sepsis: Status: Acute Code(s): A41.9 - Sepsis, unspecified organism (3) Hyponatremia: Status: Acute Code(s): E87.1 - Hypo-osmolality and hyponatremia (4) Aspiration pneumonia: Status: Acute Code(s): J69.0 - Pneumonitis due to inhalation of food and vomit (5) Dysphagia: Status: Acute Code(s): R13.10 - Dysphagia, unspecified Plan Sepsis secondary to left pyelonephritis and aspiration pneumonia - CT of the abdomen pelvis done on admission showed left pyelonephritis and left lower lobe infiltrate - Speech therapy is following with restricted p.o. having a pur?ed thin liquid diet - Plan is for modified barium swallow in the future -Anticipate this to be done after discharge however with increased alertness may be able to be done today or tomorrow - Antibiotics completed and monitor off -Continue to monitor clinically as we do suspect she is chronically aspirating this part of the etiology for her ongoing and intermittent low-grade temperature elevations -Hopeful that we can get a modified barium swallow done in the short-term - Will continue to discuss with infectious disease depending on results Dysphagia - Continue pur?e thin liquid diet per speech therapy - P.o. intake has improved so speech therapy will reevaluate for scheduling of a MBS - Continue speech therapy intervention Lower extremity edema - Resolved Diarrhea with history of constipation -Suspect acute diarrhea is likely related to her antibiotics -About 3 episodes a day so not consistent with C. 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 Hernández History of osteoporosis - On Prolia - Continue outpatient injections DVT prophylaxis - Continue Lovenox 30 daily CODE STATUS - Full code Medications at Discharge Home Medications baclofen 10 mg tablet 5 mg PO DAILY 03/15/23 carbamazepine 100 mg chewable tablet 200 mg PO Q12H 03/15/23 clonazepam 0.5 mg disintegrating tablet 0.5 mg translingual PRN SEIZURE 03/15/23 glycerin (laxative) 2.8 gram/2.7 mL rectal solution (Pedia-Lax) 2.8 g MI QODAY 03/15/23 Held on 12/09/24. Instructions: Hold unless patient having significant constipation topiramate 100 mg tablet 150 mg PO Q12H 03/15/23 denosumab 60 mg/mL subcutaneous syringe (Prolia) 60 mg subcut [id number] 07/31/23 cholecalciferol (vitamin D3) 25 mcg (1,000 unit) capsule (Vitamin D3) 25 mcg PO DAILY 11/30/24 esomeprazole magnesium 20 mg capsule,delayed release (Acid Fruit Tester (esomeprazole)) 40 mg PO DAILY 11/30/24 ferrous sulfate 300 mg (60 mg iron)/5 mL oral liquid 300 mg PO QODAY 11/30/24 trofinetide 200 mg/mL oral solution (Daybue) 6,000 mg PO BID 11/30/24 valproic acid (as sodium salt) 500 mg/10 mL (10 mL) oral solution 1,000 mg (20 mL) PO BID #1,200 mL 12/09/24 Hospital Course Operations None Procedures 2-D Echocardiogram, Modified Barium Swallow and - (CT chest/CT soft tissue neck/CT abdomen pelvis) Summary of Care Provided Minutes Spent on Discharge: 45 Hospital Course: SHON CARNEY, is a 39 F with a history of Rett syndrome who presented to the emergency department at [facility] with her parents on 11/30/2024 due to decreased p.o. intake, fever and malaise at home. Her parents give all the history as she is nonverbal at baseline. They report that symptoms began on Friday. She is typically on a pur?ed thin liquid diet which she had been tolerating well but her p.o. intake is decreased since Friday. They are concerned that she is dehydrated. She is still having wet adult diapers and her last bowel movement was yesterday. Her bowels have been normal. She has had no sick contacts. Her mom does report that she is having some aspiration issues over the last year. She has had 2 modified barium swallows here. They state that she does intermittently cough after eating so they were concerned that she could potentially have aspiration pneumonia. She has had low-grade fevers at home. Her functional status at baseline is limited to walking brief distances with assistance and stands for short period of time with assistance. Vital signs in the emergency department showed a temperature of 98.9, heart rate 118, respiratory rate 17, blood pressure initially 185/102 with a repeat of 145/123, pulse ox is 95% on room air. Tmax was 99 in the emergency department. CBC showed a normal white count with no left shift. She did have a significant monocytosis with a 17.4% monocyte count. Coags were normal. Chemistry panel showed a slightly elevated BUN and serum creatinine from baseline consistent with mild dehydration. Lactic acid was normal at 1.1. Her UA was unremarkable. Chest x-ray is unremarkable. CT of her chest was done looking for pulmonary abnormality with a negative chest x-ray and showed mild appearing atelectatic changes in the lung and left lower lobe with mild patchy areas of groundglass and a small area of atelectasis or scarring in the right middle lobe. CTA of her neck was done to check her dentition and she does have overall poor dentition. There was significant motion artifact but no evidence of any abnormalities. Given her decreased p.o. intake and fever she was admitted to the hospital for IV fluids and workup. CRP and sed rate were markedly elevated with her CRP being greater than 300. Given this a CT of her abdomen pelvis was performed and showed left pyelonephrosis, left ovarian cysts, and left base atelectasis with mild patchy groundglass opacity concerning for infectious process. She was admitted to medical floor and placed on broad-spectrum antibiotics. Speech therapy was consulted as there was a concern for aspiration pneumonia on top of pyelonephritis. Echocardiogram was obtained and showed normal EF at 60% with no evidence of diastolic dysfunction and no vegetations. Infectious disease was consulted and transitioned her antibiotics to ceftriaxone and Flagyl. Sputum culture was respiratory britany, strep pneumo and Legionella antigens were negative, respiratory viral panel COVID-19 was negative. Her urine culture was positive for E. coli but CFU's were less than the thousand. It was sensitive to ceftriaxone. She received a total of 8 days of antibiotics and was having some low-grade temperatures despite this. Her p.o. intake was poor so we did stop antibiotics even though there was concern for ongoing aspiration as we thought maybe the Flagyl was bothering her stomach. Her p.o. intake particularly with liquids improved after cessation of Flagyl and we will able to follow perform a modified barium swallow on 12/09/2024. She was found to be potentially aspirating thin liquids so her diet was transition from pur?e thin liquids to pur?e nectar thick liquids at this time. No significant home medication changes were made at the time of discharge other than transitioning her Depakote from pill form to liquid form to enable better oral intake of this. Family did ask about follow-up with gastroenterology as she does have some persistent reflux issues and referral to Dr. Hernández was made an appointment was set up. They would also like to transfer her epilepsy care from the doctor that currently seeing in [place] to [facility] and will be making an appointment. We have advised that she follow-up with her primary care physician within a week and keep her appointment that is scheduled with Dr. Hernández. It is anticipated that at some point she will need a PEG however it does not appear that she needs this at this time. Patient was able to be discharged in stable condition home with her mother and father on 12/09/2024. Prescription for the liquid Depakote was sent to the pharmacy prior to discharge. Discharge diagnoses: Sepsis secondary to left pyelonephritis and aspiration pneumonia Dysphagia Lower extremity edema Diarrhea History of constipation Hypophosphatemia Hypokalemia Anemia Chronic spasticity Seizure disorder Rett's syndrome GERD Osteoporosis Physical Exam Const alert, no apparent distress and well nourished; Negative for average body habitus Constitutional Narrative: Middle-aged, white female, underlying Rett syndrome, appears comfortable, parents at bedside, nonverbal at baseline General Appearance: cooperative, comfortable and well developed Exam Limitations: other limitations HEENT normocephalic, head/scalp atraumatic and moist oral mucous membranes; Negative for gingiva normal HEENT Narrative: Small oropharynx, Mallampati 3, no thrush, dentition is poor Eyes EOMs intact bilaterally and conjunctivae normal Eyes Narrative: No scleral icterus Neck supple Neck Narrative: Trachea midline Resp normal respiratory effort, no retractions, no use of accessory muscles and clear to auscultation bilaterally Auscultation: Negative for rales, rhonchi or wheezes Cardio regular rate, regular rhythm, S1 normal heart sound, S2 normal heart sound, no murmurs, no rub, no gallops and no clicks GI normal to inspection, nondistended, normoactive bowel sounds, soft to palpation and non-tender Extremity no clubbing, cyanosis or edema Extremity Narrative: Decreased lean muscle mass, 2+ radial and pedal pulses, edema resolved Skin skin turgor normal, no jaundice, no petechiae and no mottling Neuro Neuro Narrative: Nonverbal, contractures noted, decreased lean muscle mass from decreased movement Sensorium / Orientation: awake and alert Speech: Negative for speech normal Psych Psych Narrative: Calm Weight / BMI Weight Weight: 41.2 kg Body Mass Index (BMI) 23.6 ABG / Lab / Microbiology Data 12/09/24 05:27 12/09/24 05:27 Laboratory: Laboratory Results - last 24 hr 12/09/24 05:27: WBC LOG CHECK SCALER, Corrected WBC 9.3, RBC 2.64 L, Hgb 9.0 L, Hct 28.2 L, MCV 106.8 H, MCH 34.1 H, MCHC 31.9 L D, RDW Std Deviation 66.4 H, RDW Coeff of Chayo 17.2 H, Plt Count 442, MPV 9.9, Neut % (Auto) Not Reportable, Absolute Neuts (auto) 4.4, Absolute Lymphs (auto) 2.60, Total Counted 100, Neutrophils % (Manual) 43 L, Band Neutrophils % 4, Lymphocytes % (Manual) 28, Monocytes % (Manual) 11 H, Eosinophils % (Manual) 5, Metamyelocytes % 8 H, Myelocytes % 1 H, Nucleated RBCs/100 WBC 16 H, Platelet Estimate MOD INC, Polychromasia 1+, Anisocytosis 1+, Sodium 144, Potassium 3.9, Chloride 113 H, Carbon Dioxide 23.0, Anion Gap 8, BUN 12, Creatinine 0.42 L, Estim Creat Clear Calc 115.81, Est GFR (MDRD) Non-Af 127, BUN/Creatinine Ratio 29.5 H, Glucose 88, Calcium 8.8 Microbiology: Microbiology 11/30/24 22:17 Blood Culture (Wb) - Arm Left Bacteria Detection (PCR) - Final Staphylococcus epidermidis 11/30/24 22:17 Blood Culture (Wb) - Arm Left Blood Culture - Final Coag Negative Staph 11/30/24 22:21 Blood Culture (Wb) - Arm Left Blood Culture - Final No growth in 5 days. 12/04/24 00:37 Stool Enteric Bacteriology - Final 12/04/24 00:37 Stool Clostridioides difficile (PCR) - Final 12/01/24 14:11 Sputum, Induced/Lukens Gram Stain - Final 12/01/24 14:11 Sputum, Induced/Lukens Respiratory Culture - Final Mixed normal respiratory britany. No Streptococcus pneumoniae, beta-hemolytic Streptococcus or Staphylococcus aureus isolated. 11/30/24 23:48 Urine, Catheterized Urine Culture - Final Escherichia coli 12/01/24 13:20 Urine Catheter - Catheter Streptococcus pneumoniae Antigen (M - Final 12/01/24 13:20 Urine Catheter - Hill Legionella Antigen - Final 12/01/24 05:25 Mucosa - Nasopharyngeal Respiratory Panel (PCR) - Final 11/30/24 22:08 Mucosa - Nasopharyngeal SARS-CoV-2, Influenza & RSV (PCR) - Final D/C Instructions Discharge Activity: Return to Normal Activity DC O2, CPAP, BIPAP Needs Home O2 Discharge instructions: No DC home with Oxygen: No Meaningful Use Info Meaningful Use Meaningful Use Diagnoses (Choose all that apply): None applicable Ischemic Stroke Statin Dosing Therapy Reference: STATIN DOSE THERAPY REFERENCE: * Patients > 75 years receive moderate or high dose statin therapy. * Patients 75 years or YOUNGER should receive HIGH intensity statin dose unless contraindicated. You will be required to document reason for non-treatment if statin daily dose does not meet guidelines. HIGH DOSE STATIN THERAPY DAILY Atorvastatin > than or = to 40 mg Rosuvastatin > than or = to 20 mg Amlodipine + Atorvastatin > than or = to 2.5/40 mg Ezetimibe + Simvastatin 10/80 mg Simvastatin 80mg Discharge Plan Admission Admit Date/Time: 12/01/24 16:59 Primary Reason for Your Visit: Fever/lethargy Attending Provider: Ce Nicholson Primary Care Provider: Mir Sauceda Consulting Providers: Ce Nicholson; Mio Rivera; Duncan Hassan; Shyanne Sarkar Instructions Additional Instructions / Restrictions: 1. Please call [facility] and follow-up with an epileptologist of your preference 2. Monitor for signs of reinfection including lethargy and fever if she shows any signs would recommend calling primary care initially to have her evaluated 3. Please follow-up with gastroenterology as noted before 4. Please follow-up pur?e/nectar thick liquid diet Discharge Orders/Prescriptions Prescriptions: New valproic acid (as sodium salt) 500 mg/10 mL (10 mL) solution 1,000 mg PO BID Qty: 1200 0RF Continued Prolia 60 mg/mL syringe 60 mg subcut [id number] carbamazepine 100 mg tablet,chewable 200 mg PO Q12H Patient Comments: chew and swallow 2 tablets by mouth twice a day topiramate 100 mg tablet 150 mg PO Q12H Patient Comments: take 1 tablet by mouth twice a day baclofen 10 mg tablet 5 mg PO DAILY clonazepam 0.5 mg tablet,disintegrating 0.5 mg translingual PRN esomeprazole magnesium [Acid Fruit Tester (esomeprazole)] 20 mg capsule,delayed release(DR/EC) 40 mg PO DAILY Daybue 200 mg/mL solution 6,000 mg PO BID ferrous sulfate 300 mg (60 mg iron)/5 mL liquid 300 mg PO QODAY Patient Comments: take 5 MILLILITER by mouth every other day cholecalciferol (vitamin D3) [Vitamin D3] 25 mcg (1,000 unit) capsule 25 mcg PO DAILY Held Pedia-Lax 2.8 gram/2.7 mL solution 2.8 g MI QODAY Hold Instructions: Hold unless patient having significant constipation Discontinued divalproex 250 mg tablet,delayed release (DR/EC) 1,000 mg PO Q12H Patient Comments: take 4 tablets by mouth twice a day Referrals / Follow Up: Mir Sauceda MD [Primary Care Provider] - In 1 Week Orestes Hernández DO [Med Staff - Active Staff] - 12/14/24 9:30 am Disposition Disposition (needs filled in before D/C Order can be placed): Home, Self Care Charges/Coding Visit Charges Inpatient E&M: 31192 Disch Hosp >30min
[2024-12-09 17:07] VITALS: BP 106/73; PULSE 90; RESP 20; TEMP 36.3; O2SAT 92
== END 2024-12-09 19:56 | disposition home or self-care (01) | DRG 871 ==
LOC: ED 12-01 02:44 → MS3 12-01 03:02
PROVIDERS: Student in an Organized Health Care Education/Training Program; Admitting Provider Internal Medicine; Emergency Provider Emergency Medicine; PCP Family Medicine; Visit Provider Internal Medicine
DX: A41.89 Other specified sepsis (principal); J69.0 Pneumonitis due to inhalation of food and vomit; J18.9 Pneumonia, unspecified organism; F84.2 Rett's syndrome; J98.11 Atelectasis; N12 Tubulo-interstitial nephritis, not specified as acute or chronic; E83.39 Other disorders of phosphorus metabolism; G40.909 Epilepsy, unspecified, not intractable, without status epilepticus; D64.9 Anemia, unspecified; E86.0 Dehydration; D72.821 Monocytosis (symptomatic); K21.9 Gastro-esophageal reflux disease without esophagitis; E87.6 Hypokalemia; K02.9 Dental caries, unspecified; M41.9 Scoliosis, unspecified; R19.7 Diarrhea, unspecified; K59.00 Constipation, unspecified; R13.10 Dysphagia, unspecified; Z11.52 Encounter for screening for COVID-19; Z79.01 Long term (current) use of anticoagulants; M81.0 Age-related osteoporosis without current pathological fracture; Z79.899 Other long term (current) drug therapy; Z88.5 Allergy status to narcotic agent; Z88.8 Allergy status to other drugs, medicaments and biological substances; Z88.1 Allergy status to other antibiotic agents; Z99.3 Dependence on wheelchair; R53.81 Other malaise; N32.89 Other specified disorders of bladder; N83.202 Unspecified ovarian cyst, left side; B95.0 Streptococcus, group A, as the cause of diseases classified elsewhere; B96.20 Unspecified Escherichia coli [E. coli] as the cause of diseases classified elsewhere; T36.95XA Adverse effect of unspecified systemic antibiotic, initial encounter
CPT/HCPCS: 36415; 51702; 70491; 71046; 71260; 74019; 74177; 74230; 80048; 80053; 81001; 83605; 83735; 84100; 84132; 84145; 84443; 85025; 85610; 85652; 85730; 86140; 87040; 87070; 87077; 87086; 87088; 87149; 87186; 87205; 87449; 87493; 87506; 87631; 87633; 92526; 92610; 92611; 93005; 93306; 97162; 97166; 97802; 97803; 99285; Q9967; A4216; J0696; J1938; J2405

== ENCOUNTER → 2024-11-30 | Outpatient (CLI) | payer MEDICARE, MEDICAID, SELFPAY ==
--- NOTE | 2024-11-30 17:20 | RAD_ITS ---
PROCEDURE: ABD INC DECUB AND/OR ERECT 11/30/2024 REASON FOR EXAM: FEVER NOT EATING TECHNIQUE: Three-view supine and wheelchair upright abdomen COMPARISON: Mortgage Assistant from the CT exam 12/02/2019. 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 No evidence of pneumoperitoneum. A moderate stool burden is seen in the right colon No small bowel dilation is noted, though some air-filled nondilated large bowel loops are seen on the left. No mass or mass effect is evident. Reading Location: [place] [id number]
--- NOTE | 2024-11-30 17:20 | RAD_ITS ---
PROCEDURE: CHEST PA AND LATERAL 11/30/2024 REASON FOR EXAM: FEVER TECHNIQUE: Frontal and lateral views of the chest. 2 frontal views to include the entire chest and lateral, 3 total images COMPARISON: 09/04/2022 FINDINGS: Spinal curvature and elevation of the left hemidiaphragm. Low lung volumes. Left base atelectasis. No pleural effusion. Pulmonary vascularity appears within limits. Cardiac and mediastinal contours appear within limits. RAD/Chest PA and Lateral IMPRESSION: Spinal curvature and elevation of the left hemidiaphragm. Low lung volumes. L eft base atelectasis. No pleural effusion. Reading Location: [id number]
== END | disposition home or self-care (01) ==
LOC: MTRAD 17:07
PROVIDERS: PCP Family Medicine
DX: R50.9 Fever, unspecified (principal)
CPT/HCPCS: 71046; 74019

== ENCOUNTER → 2024-12-15 | Outpatient (CLI) | payer MEDICARE, MEDICAID, SELFPAY | END | disposition home or self-care (01) | PROVIDERS: PCP Family Medicine; Referring Provider Nurse Practitioner Acute Care; Visit Provider Nurse Practitioner Acute Care | DX: R19.7 Diarrhea, unspecified (principal) | CPT/HCPCS: 87493 ==

== ENCOUNTER 2025-01-10 14:00 | Outpatient (RCR) | payer MEDICARE, MEDICAID, SELFPAY ==
--- NOTE | 2024-12-20 12:10 | ST ---
Modified Barium Swallow Study MR#: [id number] Name: SHON CARNEY : 1985 39 Modified Barium Swallow Patient Information Study Date: 12/09/24 Study Time: 09:15 Direct Billable Minutes: 117 Total Minutes procedure & reportin Diagnosis: Dysphagia R13.10; Aspiration PNA J18.9 Referring Physician: Ce Nicholson Reason for Referral: Assess swallow function, assess risk for aspiration, and determine recommendations for least restrictive diet textures and compensatory strategies to improve safety of swallow. Medical History: PMHx: Dysphagia, Scoliosis, History of osteoporosis, GERD, Seizure disorder, Rett syndrome. The patient presented to [facility] ED with her parents on 11/30/2024 due to decreased p.o. intake, fever, and malaise at home. Her parents give all the history as she is nonverbal at baseline. They report that symptoms began on Friday before admission. She is typically on a pur?ed / thin liquid diet which she had been tolerating well but her p.o. intake is decreased since Friday. Her mom does report that she is having some aspiration issues over the last year. She has had 2 modified barium swallows here. She has had low-grade fevers at home. Her functional status at baseline is limited to walking brief distances with assistance and stands for short period of time with assistance. Following ED work up, she was admitted for management of sepsis due to left pyelonephritis with additional concerns for aspiration PNA. ST consulted due to hx of dysphagia and concern for aspiration PNA. The patient was initially tolerating her puree / thin liquid diet; however, during the stay she had increased coughing taking medication (liquid) and continued recurring low grade fevers, so the TURRET PRESS OPERATOR recommended a repeat MBSS. MBSS unable to be completed 12/07/2024 due to poor intake. Antibiotics were stopped and the patient began eating/drinking more 12/10/2024. MBSS planned for today to further assess swallow function and aspiration risk. Hx of MBSS at [facility] (07/30/2023, 09/03/2024). Most recent MBSS revealed moderate oral phase dysphagia, mild pharyngoesophageal dysphagia, and recommended the following diet and safe swallowing strategies: Minced and Moist Textures, Puree Textures and Thin Liquids...Allow extra time to clear oral and suspected pharyngeal residues with minced and moist textures due to the significant amount of time required for swallowing. Benefits from alternating bite/sip to clear...Small Bites, Small Sips, Slow Rate, Feed only when alert, Multiple Swallows, Alternate bites/solids and sips/liquids, Sitting upright and Remain sitting upright for 30 minutes after PO intake...Supervision: Total Feed. She was also referred for GI consult due to esophageal retention of barium w/ retrograde flow. Current Diet Ordered: Puree / Thin Mental Status: Impaired Respiratory Status: Oxygenating on Room Air Penetration-Aspiration Scale Penetration-Aspiration Scale: OBJECTIVE ASSESSMENT OF SWALLOW FUNCTION (QUANTITATIVE ? PER TRIAL): PENETRATION / ASPIRATION SCALE (RIVERA): 1 = does not enter airway 2 = enters airway/above vocal folds/ejected 3 = enters airway/above vocal folds/not ejected 4 = enters airway/contacts vocal folds/ejected 5 = enters airway/contacts vocal folds/not ejected 6 = enters airway/below vocal folds/ejected 7 = enters airway/below vocal folds/not ejected despite effort 8 = enters airway/below vocal folds/no effort VIDEOFLOROSCOPIC SCALE SCORE (RIVERA): Grade I = aspiration of material that has penetrated into the laryngeal vestibule, intact cough reflex Grade II = aspiration < 10 % of the bolus, intact cough reflex Grade III = aspiration of < 10 % of the bolus, reduced cough reflex or aspiration of > 10 % of the bolus, intact cough reflex Grade IV = aspiration of > 10 % of the bolus, reduced cough reflexPenetration-Aspiration Scale Score Thin Liquid via small single sip: cup: Result: 2= enter airway/above vocal folds/ejected Thin Liquid via small single sip: cup Trial 2: Result: 2= enter airway/above vocal folds/ejected Thin Liquid via sequential sips: cup: Result: 2= enter airway/above vocal folds/ejected Pudding via teaspoon: Comment: ~1/4 tsp. No PAS score as the patient would not swallow the small bite of pudding w/o a liquid wash. Thin Liquid via small single sip: cup Trial 3: Result: 5= enters airways/contacts vocal folds/not ejected [place] Thick Liquid via small single sip: cup: Result: 1= does not enter airway Oral Phase Labial Seal: No Labial Escape Tongue Control During Bolus Hold: Posterior escape of greater than half of bolus Bolus Transport/Lingual Motion: Repetitive/disorganized tongue motion Oral Residue: Residue collection on oral structures Pharyngeal Phase Initiation of Pharyngeal Swallow: Bolus head in pyriforms Soft Palate Elevation: Trace column of contrast/air between soft palate and pharyngeal wall Laryngeal Elevation: Partial superior movement thyroid cart/partial apprx aryt-epig petiole Anterior Hyoid Excursion: Partial anterior movement Epiglottic Movement: Complete inversion Laryngeal Vestibule Closure at Height of Swallow: Incomplete; narrow column of air/contrast in laryngeal vestibule Pharyngeal Stripping Wave: Present - complete Pharyngoesophageal Segment Opening: Complete distension and complete duration; no obstruction of flow Tongue Base Retraction: Trace column of contrast between tongue base & post. pharyngeal wall Pharyngeal Residue: Trace residue within or on pharyngeal structures Diagnosis/Impression Diagnosis: Moderate oropharyngeal dysphagia R13.12 Impression: Pt required max verbal encouragement to accept liquid barium from TURRET PRESS OPERATOR and ~1/4 tsp of barium pudding from her mother (pudding provided by mother w/ fluoroscopy turned off). Limited trials due to pt only accepting a these few sips and 1 bite. The oral phase is marked by... -Decreased labial seal w/ anterior loss of liquids past mid-chin. -Decreased bolus control w/ posterior loss of liquids to the pyriforms. -No clearance of pudding from oral cavity initially, but w/ thin liquid wash she did clear the pudding from the oral cavity. -Did not trial cookie given pt resistance to additional trials of po intake. The pharyngeal phase is primarily marked by... -Delayed swallow onset w/ bolus in the pyriforms prior to swallow onset. -Decreased laryngeal elevation and anterior hyoid excursion w/ resulting laryngeal penetration of thin liquid wash (used to wash pudding from oral cavity) to the vocal folds w/ no reflexive cough and w/o ejection. No aspiration observed; however, cannot definitively rule out aspiration due to pt's body habitus. Recommendations Diet: Puree Textures and Thin Liquids Compensatory Strategies: Small Bites, Small Sips, Slow Rate, Alternate bites/solids and sips/liquids, Sitting upright and Remain sitting upright for 30 minutes after PO intake Supervision: Total Feed Recommend Repeat Modified Barium Swallow: TBD Need for Skilled Speech Therapy Services: Yes Comment: OP ST recommended at discharge. POC to include... -Training the patient's family in use of strategies to decrease risk for aspiration and reflux aspiration. -Training the patient's family in preparation and flow testing of mildly thick liquids. -Ongoing assessment of diet tolerance of recommended textures. Family was asking this TURRET PRESS OPERATOR about pleasure soft solids. Pt is discharging today. TURRET PRESS OPERATOR recommends bringing these pleasure foods to the patient's follow-up OP TURRET PRESS OPERATOR in order to trial these specific foods to determine if she is safe to swallow. Unfortunately due to limited po intake in the hospital setting, this TURRET PRESS OPERATOR was unable to see the patient have more than sips of liquids and few trials of purees during the stay. -If concern for poor hydration w/ mildly thick liquids once the pt discharges home, would consider implementing [place] Free Water Protocol. Of note, past MBSS have recommended GI follow up. An OP GI follow up has already been recommended and scheduled by hospitalist upon discharge from [facility]. Education Completed: 1. Described result of evaluation., 4. Family/caregivers understand evaluation & agree w/ goals & tx plan. and 8. Family/caregivers require further education on strategies & risks. Status Active ST Patient: Active Contact Information [facility] Speech Therapy:: Lucinda Reed M.A. CCC-TURRET PRESS OPERATOR Speech-Language Pathologist [facility] [address] [place] [address] [email or web address] [phone] 12/09/24 1982 <Electronically signed by Lucinda Reed M.A., CCC-TURRET PRESS OPERATOR>
--- NOTE | 2024-12-20 18:27 | HP.SP.EV_ITS ---
Visit History Visit Info Date of Eval: 12/20/24 Today is Visit #: 1 Jewelry Enameler: DEVORA History Attending Doctor: Referring Doctor: Reason for Referral: DYSPHAGIA. RX HERE Medical Diagnosis: Nelson syndrome. Previous speech therapy: Yes Results: The therapist has previously treated the patient in July 2024. Parent training was completed due to patient's inability to participate in swallowing exercises. Hx of MBSS at [facility] (07/30/2023, 09/03/2024). Most recent MBSS revealed moderate or al phase dysphagia, mild pharyngoesophageal dysphagia, and recommended the following diet and safe swallowing strategies: Minced and Moist Textures, Puree Textures and Thin Liquids...Allow extra time to clear oral and suspected pharyngeal residues with minced and moist textures due to the significant amount of time required for swallowing. Benefits from alternating bite/sip to clear...Small Bites, Small Sips, Slow Rate, Feed only when alert, Multiple Swallows, Alternate bites/solids and sips/liquids, Sitting upright and Remain sitting upright for 30 minutes after PO intake...Supervision: Total Feed. She was also referred for GI consult due to esophageal retention of barium w/ retrograde flow. Other Relevant Medical History/Diagnoses/Surgery: Dysphagia, Scoliosis, History of osteoporosis, GERD, Seizure disorder, Rett syndrome. The patient presented to [facility] ED with her parents on 11/30/2024 due to decreased p.o. intake, fever, and malaise at home. Her parents give all the history as she is nonverbal at baseline. They report that symptoms began on Friday before admission. She is typically on a pur?ed / thin liquid diet which she had been tolerating well but her p.o. intake is decreased since Friday. Her mom does report that she is having some aspiration issues over the last year. She has had 2 modified barium swallows here. She has had low-grade fevers at home. Her functional status at baseline is limited to walking brief distances with assistance and stands for short period of time with assistance. Following ED work up, she was admitted for management of sepsis due to left pyelonephritis with additional concerns for aspiration PNA. ST consulted due to hx of dysphagia and concern for aspiration PNA. The patient was initially tolerating her puree / thin liquid diet; however, during the stay she had increased coughing taking medication (liquid) and continued recurring low grade fevers, so the RN STAFF recommended a repeat MBSS. MBSS unable to be completed 12/07/2024 due to poor intake. Antibiotics were stopped and the patient began eating/drinking more 12/10/2024. Smoking Status: Never smoker Diagnosis Diagnosis: Moderate oropharyngeal dysphagia R13.12 Pain Is pain an issue with your current prescribed condition?: No Personal Preferred language: Pashto Patient Allergies Allergies Allergies: Allergies diazepam (From Valium) Allergy (Verified 12/14/24 09:53) Other stopped breathing morphine Allergy (Verified 12/14/24 09:53) Other stopped breathing Penicillins Allergy (Verified 12/14/24 09:53) Rash Subjective Dysphagia Symptoms Reported Symptoms/Problems with: Coughing, Difficulty Swallowing Solids, Difficulty Swallowing Liquids, Hx of Aspiration and Hx of Pneumonia Current Diet Solids Current Diet: Pureed Current Diet Liquids Current Liquids: [place] Thick Objective Dysphagia Swallowing Impairment Contributing Factors to Swallowing Impairment: Reduced Alertness or Attention, Difficulty Following Directions, Reduced Oral Strength/Coordination/Sensation, Mastication Inefficiency, Impaired Oral-Pharyngeal Transport, Delayed Swallow Initiation and Reduced Laryngeal Excursion Impact Impact on Safety & Functioning: Risk for Aspiration and Risk for Inadequate Nutrition/Hydration Recommendations Swallowing Treatment: Yes Diet Texture Recommendations Solids: Pureed (Level 4) Liquids: Mildly thick (Level 2, [place]) Safety Saftey Precautions/Swallowing Recommendations (Check all that Apply): Supervision Needed All Meals, Feed Only when Alert, Reduce Distractions, Upright Position at Least 30 Minutes After Meals, Small Sips & Bites when Eating and Alternate Liquids & Solids Results Swallowing Within Normal Limits: No Swallowing Diagnosis: Oropharyngeal Phase Dysphagia (R13.12) Severity: Moderate Subjective Oral Motor Comments Comments: Unable to complete due to patient's cognitive status ( inability to follow directions/imitate). Modified Barium Results Hx If Applicable Enter into a NOTE MBS Results (from prior exam): 12/20/24 12:10 Speech Therapy by Michael Truong Modified Barium Swallow Study MR#: [id number] Name: SHON CARNEY : 1985 39 Modified Barium Swallow Patient Information Study Date: 12/09/24 Study Time: 09:15 Direct Billable Minutes: 117 Total Minutes procedure & reportin Diagnosis: Dysphagia R13.10; Aspiration PNA J18.9 Referring Physician: Ce Nicholson Reason for Referral: Assess swallow function, assess risk for aspiration, and determine recommendations for least restrictive diet textures and compensatory strategies to improve safety of swallow. Medical History: PMHx: Dysphagia, Scoliosis, History of osteoporosis, GERD, Seizure disorder, Rett syndrome. The patient presented to [facility] ED with her parents on 11/30/2024 due to decreased p.o. intake, fever, and malaise at home. Her parents give all the history as she is nonverbal at baseline. They report that symptoms began on Friday before admission. She is typically on a pur?ed / thin liquid diet which she had been tolerating well but her p.o. intake is decreased since Friday. Her mom does report that she is having some aspiration issues over the last year. She has had 2 modified barium swallows here. She has had low-grade fevers at home. Her functional status at baseline is limited to walking brief distances with assistance and stands for short period of time with assistance. Following ED work up, she was admitted for management of sepsis due to left pyelonephritis with additional concerns for aspiration PNA. ST consulted due to hx of dysphagia and concern for aspiration PNA. The patient was initially tolerating her puree / thin liquid diet; however, during the stay she had increased coughing taking medication (liquid) and continued recurring low grade fevers, so the RN STAFF recommended a repeat MBSS. MBSS unable to be completed 12/07/2024 due to poor intake. Antibiotics were stopped and the patient began eating/drinking more 12/10/2024. MBSS planned for today to further assess swallow function and aspiration risk. Hx of MBSS at [facility] (07/30/2023, 09/03/2024). Most recent MBSS revealed moderate oral phase dysphagia, mild pharyngoesophageal dysphagia, and recommended the following diet and safe swallowing strategies: Minced and Moist Textures, Puree Textures and Thin Liquids...Allow extra time to clear oral and suspected pharyngeal residues with minced and moist textures due to the significant amount of time required for swallowing. Benefits from alternating bite/sip to clear...Small Bites, Small Sips, Slow Rate, Feed only when alert, Multiple Swallows, Alternate bites/solids and sips/liquids, Sitting upright and Remain sitting upright for 30 minutes after PO intake...Supervision: Total Feed. She was also referred for GI consult due to esophageal retention of barium w/ retrograde flow. Current Diet Ordered: Puree / Thin Mental Status: Impaired Respiratory Status: Oxygenating on Room Air Penetration-Aspiration Scale Penetration-Aspiration Scale: OBJECTIVE ASSESSMENT OF SWALLOW FUNCTION (QUANTITATIVE ? PER TRIAL): PENETRATION / ASPIRATION SCALE (RIVERA): 1 = does not enter airway 2 = enters airway/above vocal folds/ejected 3 = enters airway/above vocal folds/not ejected 4 = enters airway/contacts vocal folds/ejected 5 = enters airway/contacts vocal folds/not ejected 6 = enters airway/below vocal folds/ejected 7 = enters airway/below vocal folds/not ejected despite effort 8 = enters airway/below vocal folds/no effort VIDEOFLOROSCOPIC SCALE SCORE (RIVERA): Grade I = aspiration of material that has penetrated into the laryngeal vestibule, intact cough reflex Grade II = aspiration < 10 % of the bolus, intact cough reflex Grade III = aspiration of < 10 % of the bolus, reduced cough reflex or aspiration of > 10 % of the bolus, intact cough reflex Grade IV = aspiration of > 10 % of the bolus, reduced cough reflexPenetration- Aspiration Scale Score Thin Liquid via small single sip: cup: Result: 2= enter airway/above vocal folds/ejected Thin Liquid via small single sip: cup Trial 2: Result: 2= enter airway/above vocal folds/ejected Thin Liquid via sequential sips: cup: Result: 2= enter airway/above vocal folds/ejected Pudding via teaspoon: Comment: ~1/4 tsp. No PAS score as the patient would not swallow the small bite of pudding w/o a liquid wash. Thin Liquid via small single sip: cup Trial 3: Result: 5= enters airways/contacts vocal folds/not ejected [place] Thick Liquid via small single sip: cup: Result: 1= does not enter airway Oral Phase Labial Seal: No Labial Escape Tongue Control During Bolus Hold: Posterior escape of greater than half of bolus Bolus Transport/Lingual Motion: Repetitive/disorganized tongue motion Oral Residue: Residue collection on oral structures Pharyngeal Phase Initiation of Pharyngeal Swallow: Bolus head in pyriforms Soft Palate Elevation: Trace column of contrast/air between soft palate and pharyngeal wall Laryngeal Elevation: Partial superior movement thyroid cart/partial apprx aryt- epig petiole Anterior Hyoid Excursion: Partial anterior movement Epiglottic Movement: Complete inversion Laryngeal Vestibule Closure at Height of Swallow: Incomplete; narrow column of air/contrast in laryngeal vestibule Pharyngeal Stripping Wave: Present - complete Pharyngoesophageal Segment Opening: Complete distension and complete duration; no obstruction of flow Tongue Base Retraction: Trace column of contrast between tongue base & post. pharyngeal wall Pharyngeal Residue: Trace residue within or on pharyngeal structures Diagnosis/Impression Diagnosis: Moderate oropharyngeal dysphagia R13.12 Impression: Pt required max verbal encouragement to accept liquid barium from RN STAFF and ~1/4 tsp of barium pudding from her mother (pudding provided by mother w/ fluoroscopy turned off). Limited trials due to pt only accepting a these few sips and 1 bite. The oral phase is marked by... -Decreased labial seal w/ anterior loss of liquids past mid-chin. -Decreased bolus control w/ posterior loss of liquids to the pyriforms. -No clearance of pudding from oral cavity initially, but w/ thin liquid wash she did clear the pudding from the oral cavity. -Did not trial cookie given pt resistance to additional trials of po intake. The pharyngeal phase is primarily marked by... -Delayed swallow onset w/ bolus in the pyriforms prior to swallow onset. -Decreased laryngeal elevation and anterior hyoid excursion w/ resulting laryngeal penetration of thin liquid wash (used to wash pudding from oral cavity) to the vocal folds w/ no reflexive cough and w/o ejection. No aspiration observed; however, cannot definitively rule out aspiration due to pt's body habitus. Recommendations Diet: Puree Textures and Thin Liquids Compensatory Strategies: Small Bites, Small Sips, Slow Rate, Alternate bites/solids and sips/liquids, Sitting upright and Remain sitting upright for 30 minutes after PO intake Supervision: Total Feed Recommend Repeat Modified Barium Swallow: TBD Need for Skilled Speech Therapy Services: Yes Comment: OP ST recommended at discharge. POC to include... -Training the patient's family in use of strategies to decrease risk for aspiration and reflux aspiration. -Training the patient's family in preparation and flow testing of mildly thick liquids. -Ongoing assessment of diet tolerance of recommended textures. Family was asking this RN STAFF about pleasure soft solids. Pt is discharging today. RN STAFF recommends bringing these pleasure foods to the patient's follow-up OP RN STAFF in order to trial these specific foods to determine if she is safe to swallow. Unfortunately due to limited po intake in the hospital setting, this RN STAFF was unable to see the patient have more than sips of liquids and few trials of purees during the stay. -If concern for poor hydration w/ mildly thick liquids once the pt discharges home, would consider implementing [place] Free Water Protocol. Of note, past MBSS have recommended GI follow up. An OP GI follow up has already been recommended and scheduled by hospitalist upon discharge from [facility]. Education Completed: 1. Described result of evaluation., 4. Family/caregivers understand evaluation & agree w/ goals & tx plan. and 8. Family/caregivers require further education on strategies & risks. Status Active ST Patient: Active Contact Information [facility] Speech Therapy:: Lucinda Reed M.A. CCC-RN STAFF Speech-Language Pathologist [facility] [address] [place] [address] [email or web address] [phone] 12/09/24 1516 <Electronically signed by Lucinda Reed M.A., CCC-RN STAFF> Initialized on 12/20/24 12:10 - END OF NOTE Swallowing Performance Scale Swallowing Performance Scale Swallowing Performance Scale Result: 5 Moderate Reference: Neuro-QoL instrument Radiation Oncology Patient Plan Plan Plan: Dysphagia treatment is warranted for caregiver training regarding pureed f oods/thickening liquids, using compensatory strategies as well dysphagia and PEG tube placement. Family had many questions answered today and has requested further education on these topics. Recommendations Treatment Warranted: Yes Treatment Warranted: Dysphagia Progress Prognosis: Fair Frequency Frequency: 1x/Week Duration: 4 Weeks Goals that are Established Determination:: Goals will be added/modified as deemed necessary and appropriate. Therapy will be discontinued when results of re-evaluation indicate therapy is no longer needed or lack of progress has been documented. Goal #1-5 Goal #1: Family education regarding current diet of pureed foods and mildly thickened liquids with family verbalizing an understanding of how to thicken and how to pureed. Goal #2: Family education regarding using compensatory strategies with verbalizing/demonstrating an understanding. Goal #3: Ongoing assessment of diet tolerance of recommended textures as well as oral intake of pills. Education Patient has Indicated that the Following Identified Educational Needs: Cognitively Impaired Patient Instruction Patient Education: Diagnosis, Treatment Plan, Safety Precautions and Diet Level Person Taught: Family
--- NOTE | 2025-02-02 14:17 | HP.SP.DC ---
ST Discharge Summary Discharged: Discharge: Jamila Neumann is discharged from [facility] as of February 01, 2025. She was evaluated on 12/20/24 for dysphagia. She was treated for 3 sessions after her initial evaluation. Her goals focused on family education for puree Textures and thin Liquids and education for compensatory strategies. Compensatory Strategies recommended were Small Bites, Small Sips, Slow Rate, Alternate bites/solids and sips/liquids, Sitting upright and Remain sitting upright for 30 minutes after PO intake. Both parents were present for sessions and educated on diet and strategies with all questions answered during the sessions. Parents expressed concern that she was continuing to have difficulty with eating, Mainly breakfast with high level of s/s of penetration/aspiration occurring. They reported lunch was much better and supper was in the middle of the two in terms of number of symptoms. Parents questioned whether a PEG tube was necessary and were referred to GI. As education was completed for family and patient is unable to participate in active therapy for completion of exercises, no further therapy is recommended at this time. Family is in agreement with discharge. Thank you for allowing me to participate in the care of this patient.
== END 2025-01-10 19:00 | disposition home or self-care (01) ==
LOC: SP 14:00
PROVIDERS: PCP Family Medicine; Referring Provider Internal Medicine; Visit Provider Internal Medicine
DX: R13.10 Dysphagia, unspecified (principal)
CPT/HCPCS: 92526; 92610

== ENCOUNTER → 2025-02-17 | Outpatient (CLI) | payer MEDICARE, MEDICAID, SELFPAY ==
--- NOTE | 2025-02-17 16:04 | BI_ITS ---
EXAM: SCREENING MAMM (CAD), BILAT DATE: 02/17/2025 CLINICAL HISTORY: F, Age 39 y/o , SCREENING Baseline study. TECHNIQUE: SCREENING MAMM (CAD), BILAT. Limited study due to patient's condition. COMPARISON: Baseline study FINDINGS: TISSUE DENSITY: The breasts are extremely dense, which lowers the sensitivity of mammography. Bilateral Breast Mammographic Findings: No significant masses, calcifications or other abnormalities are identified. BI/SCREENING MAMM (CAD), BILAT IMPRESSION: No acute abnormality is seen. OVERALL FINAL ASSESSMENT BI-RADS 1: NEGATIVE. RECOMMENDATION: Routine annual follow-up in 1 Year A letter with findings and recommendations will be mailed to the patient. Reading Location: [facility]
== END | disposition home or self-care (01) ==
LOC: OPBI 16:03
PROVIDERS: PCP Family Medicine; Referring Provider Family Medicine; Visit Provider Family Medicine
DX: Z12.31 Encounter for screening mammogram for malignant neoplasm of breast (principal)
CPT/HCPCS: 77063; 77067

== ENCOUNTER → 2025-05-05 | Outpatient (CLI) | payer MEDICARE, MEDICAID, SELFPAY ==
[2025-05-05 12:33] LABS: Hematocrit 40.4 % (37-47); Hemoglobin 13.3 g/dL (12.0-15.0); Mean Corp Hgb Conc 32.9 g/dL (32-36); Mean Corpuscular Volume 104.7 fL (81-99); Mean Platelet Vol. 12.6 fl (6.2-12.0); Platelet Count 226 K/mm3 (150-450); RBC Distribution Width CV 15.4 % (11.6-14.6); RBC Distribution Width SD 58.6 fl (35.1-43.9); Red Blood Count 3.86 M/mm3 (4.2-5.4); White Blood Count 5.8 K/mm3 (4.4-11.0)
[2025-05-05 13:14] LABS: Anion Gap 10 (5-15); BUN 26 mg/dL (4-19); BUN/Creat Ratio 47.5 RATIO (10-20); Calcium,Total 9.1 mg/dL (7.6-11.0); Carbon Dioxide 25.2 mmol/L (21.0-32.0); Chloride 108 mmol/L (98-108); Glucose 108 mg/dL (70-99); Iron 104 ug/dL (50-170); Potassium 3.7 mmol/L (3.3-5.1); Vitamin B12 1008 pg/mL (180-914); Vitamin D,25 Hydroxy 80.7 ng/mL (30-100)
== END | disposition home or self-care (01) ==
LOC: MFPLAB 09:42
PROVIDERS: PCP Family Medicine; Visit Provider Family Medicine
DX: L65.9 Nonscarring hair loss, unspecified (principal); E55.9 Vitamin D deficiency, unspecified
CPT/HCPCS: 36415; 80048; 82306; 82607; 83540; 84443; 85027

== ENCOUNTER 2025-07-19 07:58 | Outpatient (RCR) | payer MEDICARE, MEDICAID, SELFPAY ==
--- NOTE | 2025-07-19 08:52 | HP.PTEVAL ---
Patient's Visit Information Visit Information Visit Information: SHON CARNEY is a 40 year old F referred to Physical Therapy by STACY SHIELDS with a diagnosis of RHETTS SYNDROME ,EPILEPSY. Date of Evaluation: 07/19/25 Physical Therapist: Delroy Stapleton PT, Cert MDT, OCS Visit Plan Frequency: 1 visit Plan: Patient will benefit from manual w/c to optimize function in home and transportation to DR and Day care. Patient is dependant with all ADL's ,and self hygiene dressing.bathing ,feeding and toileting. Patient is dependant with transfers max assist and max assist arm to arm to commode and chair. Patient is unable to use walker due to unable to grasp with hands due to flexion contractures.Patient will use manual w/c in home to assist family in MRDLS and transport to DR appointment and day care. Patient will benefit from manual w/c to optimize function. Subjective Subjective: This 40 y/o female presents to physical therapy with w/c evaluation. Patient needs new manual w/c .Patient has multiple medical comorbities Dysphagia ,Scoliosis, osteoporosis,GERD (gastroesophageal reflux disease) ,Seizure disorder,Rett syndrome . Patient had heel cord surgery 7 years old Patient dependent with transfers and walk with max assist short distance . Patient dependant all ADLS's and self hygiene, dressing ,bathing ,toileting and feeding. Patient unable to use arms and hands contractures. Patient lives 1 story home with steps which family assist with steps. Patient has tub shower thus uses bath tube max assist.Patient unable to follow commands. Patient has no skin decubi. Patient unable to speak or communicates. Patient has no pain. Patient goes to [facility] day program 9-2:30 5days a week. Patient need new manual w/c to optimize function SOCIAL: lives with parents. Objective Objective: POSTURE: sciolisos ,posterior pelvic tilt ,asymmetries pelvis ,equinovarus varus ankle TRANSFERS : Max ASSIST BED MOBILITY: supine-sit max assist Sitting balance : poor Standing balance: poor GAIT:: Ambulates short distance arm to arm max assist to chair/commode PROM: knee flexion contractures 35 -90 degrees ,hip 90 flexion ,abduction 10 degrees , elbow flexion contractures -75 degrees,shoulder flexion 90 degrees ,wrist and hand flexion contractures MMT: 0 Goals Goal 1:: Patient to benefit from manual w/c to optimize function Rehabilitation Potential Physical Therapy Diagnosis: Patient will benefit from manual w/c to optimize function in home and transportation to and Day care. Patient is dependant with all ADL's ,and self hygiene dressing.bathing ,feeding and toileting. Patient is dependant with transfers max assist and max assist arm to arm to commode and chair. Patient is unable to use walker due to unable to grasp with hands due to flexion contractures.Patient will use manual w/c in home to assist family in MRDLS. Patient will benefit from manual w/c to optimize function. Rehabilitation Potential: Poor Anticipated Interventions Patient/Client Instruction: Educate patient on: Condition For the Purpose of:: Other Other: manual w/c Text: Thank you for the opportunity to evaluate your patient. For Medicare and Medicare HMO plans, please review the plan of care and approve it. It will need to be FAXED BACK to us at [phone] for Medicare purposes. For Medicare only, by signing this I certify the plan of care. Please let me know if there are questions or concerns regarding this plan of care. Physician Signature: Date:
== END 2025-07-19 19:00 | disposition home or self-care (01) ==
LOC: PT 07:58
PROVIDERS: PCP Family Medicine
DX: F84.2 Rett's syndrome (principal); G40.909 Epilepsy, unspecified, not intractable, without status epilepticus
CPT/HCPCS: 97163